=== PATIENT | male | born 1940 | race African-American/Black ===

== ENCOUNTER 2021-02-08 13:20 | Inpatient (IN) | payer MEDICARE, OTHER, SELFPAY ==
[2021-02-08] VITALS (15 sets, daily range): BP systolic 144–193; BP diastolic 90–138; PULSE 61–115; RESP 13–26; TEMP 36.8; O2SAT 90–100; BMI 23.7
--- NOTE | ~2021-02-08 | XR_ITS ---
EXAMINATION: XR CHEST CLINICAL INFORMATION: Shortness of breath COMPARISON: 06/18/2020 TECHNIQUE: Frontal view of the chest was obtained. FINDINGS: Left chest wall pacer remains in place. The lungs are well expanded. Patchy bilateral nodular opacities are seen throughout both lungs. No significant pleural effusion. No pneumothorax. The cardiomediastinal silhouette is unchanged. XR/XR chest 1V IMPRESSION: Bilateral nodular patchy opacities throughout the lungs could be infectious or inflammatory in nature. Follow-up to resolution to exclude underlying nodules.
--- NOTE | ~2021-02-08 | CT_ITS ---
EXAMINATION: CT CHEST WITHOUT CONTRAST CLINICAL INFORMATION: Shortness of breath COMPARISON: Chest radiograph earlier today and chest CT 06/18/2020 TECHNIQUE: Multidetector volumetric CT imaging of the chest was done. Axial MIP volume rendering provided. Sagittal and coronal reformatted images were obtained. This CT examination was performed using dose optimization techniques as appropriate, variously including the following: *Automated exposure control *Adjustment of mA and/or kV according to patient size (this includes techniques or standardized protocols for targeted exams where dose is matched to indication/reason for exam; i.e. extremities or head) *Use of iterative reconstruction technique DLP: 250 mGy-cm FINDINGS: LUNGS: There are nodular groundglass type infiltrates in the right upper lobe and left upper lobe. Some minimal nonspecific groundglass changes are present in the lower lobes. MEDIASTINUM: The heart is mildly enlarged. Coronary calcifications are present. Mildly prominent precarinal lymph node present measuring 1.8 x 1.4 cm not significantly changed when compared to the 06/18/2020 study. A 3-lead left chest wall pacemaker is present. PLEURA: Small new bilateral pleural effusions are present. AXILLA: No lymphadenopathy. UPPER ABDOMEN: Calcifications are present at the renal artery ostia. No abdominal masses or adenopathy is seen. No ascites is present. OSSEOUS STRUCTURES: Degenerative changes present in the spine CT/CT chest wo con IMPRESSION: Cardiomegaly, bilateral pleural effusions and some generalized groundglass change all of which may be indicative of CHF with interstitial edema Bilateral upper lobe pulmonary infiltrates which could be infectious or inflammatory and possibly even atypical edema. Neoplasm is felt to be less likely. As stated in the chest radiograph report follow-up is recommended to assure clearing.
--- NOTE | 2021-02-08 13:25 | ECG_ITS ---
Test Reason : cp Blood Pressure : / mmHG Vent. Rate : 124 BPM Atrial Rate : 124 BPM P-R Int : 118 ms QRS Dur : 134 ms QT Int : 408 ms P-R-T Axes : 049 -89 074 degrees QTc Int : 586 ms Sinus tachycardia Left axis deviation Non-specific intra-ventricular conduction block Abnormal ECG When compared with ECG of 18-JUN-2020 10:10, Vent. rate has increased BY 62 BPM Referred By: Generic ED Physician Electronically Signed By:IAN MILLARD
[2021-02-08 13:57] LABS: Hematocrit 42.3 % (42-52); Imm Gran Abs Auto 0.01 X10*3/uL (0.00-0.03); Imm Gran Pct Auto 0.1 % (0.0-0.4); Monocytes Absolute Auto 0.5 X10*3/uL (0.1-1.2)
--- NOTE | 2021-02-08 13:57 | ED.SOB ---
HPI - SOB/Dyspnea General Chief Complaint: Dyspnea Stated Complaint: chest burning.SOB Time Seen by Provider: 02/08/21 13:57 Source: family Mode of arrival: EMS Limitations: no limitations History of Present Illness HPI Narrative: Pleasant 80-year-old male with history of atrial fibrillation, CHF and COPD who is a former smoker 40 years ago with a 20+ year pack a day smoker as well as hypertension who presents today with complaint of 1 day of burning like discomfort in the substernal region and progressively have gotten more short of breath since last night. States pain feels burning like in the substernal region. And more sore breath with exertion. No cough or URI symptoms recently. No fever. No recent travel or sick contacts. MD elicited complaint: shortness of breath Context: recent illness Severity: severe Exacerbating factors: exertion Relieving factors: nothing Known history of: COPD and congestive heart failure Associated symptoms: denies other symptoms Treatment prior to arrival: none Related Data Home oxygen amount: none Home Medications Medication Instructions Recorded Confirmed carvedilol 6.25 mg tablet 6.25 mg PO BID 01/09/21 02/08/21 lisinopril 5 mg tablet 5 mg PO DAILY 01/09/21 02/08/21 tamsulosin 0.4 mg capsule 0.4 mg PO DAILY 01/09/21 02/08/21 warfarin 5 mg tablet See Rx Instructions .ROUTE .COMPLEX 01/09/21 02/08/21 Previous Rx's Medication Instructions Recorded allopurinol 300 mg tablet 300 mg PO DAILY #30 tab 12/19/20 atorvastatin 40 mg tablet 40 mg PO DAILY #90 tab 12/19/20 hydralazine 25 mg tablet 25 mg PO TID #90 tab 12/19/20 isosorbide dinitrate 10 mg tablet 10 mg PO TID 90 Days #270 tab 12/25/20 torsemide 20 mg tablet 20 mg PO BID #180 tab 01/22/21 Allergies Allergy/AdvReac Type Severity Reaction Status Date / Time No Known Allergies Allergy Unknown Verified 01/09/21 11:12 [No Known Allergies*] Review of Systems Review of Systems: Constitutional: No Weight loss, No Fever, No Chills, No Night Sweats, No Fatigue, No Malaise ENT/Mouth: No Hearing loss, No Ear Pain, No Nasal Congestion, No Sinus Pain, No Hoarseness, No sore throat, No Rhinorrhea, No Swallowing Difficulty Eyes: No Eye Pain, No Swelling, No Redness, No Foreign Body, No Discharge, No Vision Changes Cardiovascular: + Chest Pain, No SOB, No Edema, No Palpitations Respiratory: No Cough, No Sputum, No Wheezing, No Smoke Exposure, No Dyspnea Gastrointestinal: No Nausea, No Vomiting, No Diarrhea, No Constipation, No abdominal Pain, No Hematochezia, No Melena Genitourinary: No Dysuria, No Urinary Frequency, No Hematuria, No Urinary Incontinence, No Urgency, No Flank Pain, No Urinary Flow Changes, No Hesitancy Musculoskeletal: No joint pain, No Myalgias, No Joint Swelling Skin: No Skin Lesions, No rash Neuro: No Weakness, No Numbness, No Paresthesias, No Loss of Consciousness, No Dizziness, No Headache Psych: No Social Issues Heme/Lymph: No Bruising, No Bleeding,No Lymphadenopathy Endocrine: No Polyuria, No Polydipsia, No Temperature Intolerance Yes all other systems are reviewed and are negative [facility] Past Medical History [facility] Narrative: Atrial fibrillation Cardiac pacer implant Hypertension BPH Asthma/COPD Congestive heart failure Medical History Atrial fibrillation Surgical History (Updated 01/09/21 @ 11:17 by An Stokes) History of rotator cuff surgery History of surgery on right wrist Family History Family History (Updated 01/09/21 @ 11:17 by An Stokes) Mother No problems noted. Father No problems noted. Social History Social History (Updated 01/09/21 @ 11:18 by An Stokes) Alcohol intake: never Smoking Status: Former smoker Use of substances other than those prescribed or required for medical reasons: No Advance Directives: No Advance Directives Information Provided: Yes Physical Exam Vital Signs: Vital Signs: Last Vital Signs Temp 98.3 F 02/08/21 13:38 Pulse 72 02/08/21 20:56 Resp 16 02/08/21 20:56 BP 182/109 H 02/08/21 20:56 Pulse Ox 96 02/08/21 20:56 Body Mass Index 23.7 Reviewed Const: General: acute distress moderate and respiratory; No intoxicated appearing Nutritional Appearance: average body habitus Orientation/consciousness: patient oriented x3 HENMT: Head: Yes normal to inspection Ears: hearing grossly normal bilaterally Eyes: General: appearance normal, both eyes and all related structures Visual Greene: normal visual greene by confrontation Neck: Neck: Yes normal visual inspection, No positive Brudzinski's sign, No positive Kernig's sign and No tender Thyroid: Thyroid normal Chest: Chest palpation & inspection: normal inspection of the chest Resp: Effort & Inspection: normal respiratory effort Auscultation: clear to auscultation bilaterally Cardio: Jugular venous distension: no JVD Rhythm: regular rhythm Heart sounds: S1 normal heart sound present and S2 normal heart sound present GI: Inspection: Yes normal to inspection Palpation (GI): Soft to palpation Percussion: Yes normal to percussion Auscultation: normal bowel sounds : General: Yes no CVA tenderness Back/Spine/Pelvis: Back: no CVA tenderness Skin: General skin exam: no rashes or lesions noted Neuro: General: patient oriented x3 Extrem: General: Yes normal to inspection Course Reevaluation(s) Reevaluation #1: AFib with RVR appears and respiratory distress underlying HF diminished lung sounds bibasal a question flash pulmonary edema blood pressure elevated 190s / 1 teens. Will give dose of Lasix, nitro paste to chest and rescue CPAP. Workup including chest x-ray EKG showed. Reevaluation #2: Appears and feels much better after being on the CPAP for 1 hour. BNP elevated but not significant from previous. After 40 mg of IV Lasix he was able to put out 1100 cc. Troponin slightly bumped EKG nondiagnostic repeat without delta. Case discussed with hospitalist would like to monitor for 1 hour to see make sure go back into flash pulmonary edema and will admit to service. Consultations Consultation #1: Hospitalist Dr. Ng Consultation #2: Hospitalist Dr. Mansfield MDM - SOB/Dyspnea Medical Records Attestation: I reviewed the patient's medical records. Lab Data Attestation: I reviewed the patient's lab results. Result diagrams: 02/08/21 13:50 02/08/21 13:50 Labs: Lab Results 02/08/21 02/08/21 02/08/21 Range/Units 13:50 13:50 13:50 WBC 6.9 (4.8-10.8) X10*3/uL RBC 5.20 (4.60-5.80) X10*6/uL Hgb 12.9 L (14.0-18.0) g/dl Hct 42.3 (42-52) % MCV 81.3 (80-98) fL MCH 24.8 L (27.0-33.0) pg MCHC 30.5 L (31.0-36.0) g/dl RDW 17.8 H (11.0-16.0) % Plt Count 140 L (160-400) X10*3/uL MPV Not Reportable Immature Gran % (Auto) 0.1 (0.0-0.4) % Neut % (Auto) 76.6 H (45-73) % Lymph % (Auto) 12.0 L (20-40) % [place]wey % (Auto) 6.8 (2-11) % Eos % (Auto) 3.9 (0-4) % Baso % (Auto) 0.6 (0-2) % Lymph # (Auto) 0.8 L (1.2-4.9) X10*3/uL [place]wey # (Auto) 0.5 (0.1-1.2) X10*3/uL Eos # (Auto) 0.3 (0.0-0.4) X10*3/uL Baso # (Auto) 0.0 (0.0-0.2) X10*3/uL Abs Immat Gran (auto) 0.01 (0.00-0.03) X10*3/uL Absolute Neuts (auto) 5.3 (2.0-8.3) X10*3/uL Absolute Nucleated RBC 0.000 (0.0-0.012) X10*3/uL Nucleated RBC % (auto) 0.0 (0.0-0.2) /100WBC PT (10.8-13.0) SEC INR (0.9-1.1) APTT (24.1-38.0) SEC Hold Blue Top SEE NOTE Sodium 144 (135-145) mmol/L Potassium 3.8 (3.3-5.1) mmol/L Chloride 111 H (96-108) mmol/L Carbon Dioxide 23 (22-29) mmol/L Anion Gap 14 (12-20) BUN 30 H (9-16) mg/dL Creatinine 1.57 H (0.5-1.4) mg/dL Estim Creat Clear Calc 41.1 Estimated GFR 43 Random Glucose 111 (60-115) mg/dL Calcium 9.1 (8.4-10.2) mg/dL Total Bilirubin 1.9 H (0.0-1.0) mg/dL Direct Bilirubin 0.7 H (0.0-0.5) mg/dL AST 23 (5-37) U/L ALT 16 (0-40) U/L Alkaline Phosphatase 83 (39-117) U/L Lactate Dehydrogenase 246 (118-273) U/L Troponin I High Sens (<3.5-35.0) ng/L C-Reactive Protein 0.48 (< or = 0.50) mg/dL B-Natriuretic Peptide (<100) pg/mL Total Protein 6.9 (6.5-8.0) g/dL Albumin 4.1 (3.5-5.0) g/dL Procalcitonin ng/mL Urine Color Urine Appearance Urine pH (5.0-8.0) Ur Specific [place] (1.005-1.025) Urine Protein (NEG-TRACE) MG/DL Urine Glucose (UA) (NEG) MG/DL Urine Ketones (NEG) MG/DL Urine Blood (NEG) Urine Nitrite (NEG) Ur Leukocyte Esterase (NEG) Urine RBC (0) /HPF Urine WBC (0-4) /HPF Ur Squamous Epith Cells /LPF Urine Bacteria /LPF Urine Mucus /LPF Coronavirus (PCR) (Negative) Influenza Type A (PCR) (Negative) Influenza Type B (PCR) (Negative) RSV RNA Qual (PCR) (Negative) 02/08/21 02/08/21 02/08/21 Range/Units 13:50 13:50 14:22 WBC (4.8-10.8) X10*3/uL RBC (4.60-5.80) X10*6/uL Hgb (14.0-18.0) g/dl Hct (42-52) % MCV (80-98) fL MCH (27.0-33.0) pg MCHC (31.0-36.0) g/dl RDW (11.0-16.0) % Plt Count (160-400) X10*3/uL MPV Immature Gran % (Auto) (0.0-0.4) % Neut % (Auto) (45-73) % Lymph % (Auto) (20-40) % [place]wey % (Auto) (2-11) % Eos % (Auto) (0-4) % Baso % (Auto) (0-2) % Lymph # (Auto) (1.2-4.9) X10*3/uL [place] # (Auto) (0.1-1.2) X10*3/uL Eos # (Auto) (0.0-0.4) X10*3/uL Baso # (Auto) (0.0-0.2) X10*3/uL Abs Immat Gran (auto) (0.00-0.03) X10*3/uL Absolute Neuts (auto) (2.0-8.3) X10*3/uL Absolute Nucleated RBC (0.0-0.012) X10*3/uL Nucleated RBC % (auto) (0.0-0.2) /100WBC PT (10.8-13.0) SEC INR (0.9-1.1) APTT (24.1-38.0) SEC Hold Blue Top Sodium (135-145) mmol/L Potassium (3.3-5.1) mmol/L Chloride (96-108) mmol/L Carbon Dioxide (22-29) mmol/L Anion Gap (12-20) BUN (9-16) mg/dL Creatinine (0.5-1.4) mg/dL Estim Creat Clear Calc Estimated GFR Random Glucose (60-115) mg/dL Calcium (8.4-10.2) mg/dL Total Bilirubin (0.0-1.0) mg/dL Direct Bilirubin (0.0-0.5) mg/dL AST (5-37) U/L ALT (0-40) U/L Alkaline Phosphatase (39-117) U/L Lactate Dehydrogenase (118-273) U/L Troponin I High Sens 113.4 H (<3.5-35.0) ng/L C-Reactive Protein (< or = 0.50) mg/dL B-Natriuretic Peptide 2026 H (<100) pg/mL Total Protein (6.5-8.0) g/dL Albumin (3.5-5.0) g/dL Procalcitonin 0.03 ng/mL Urine Color Urine Appearance Urine pH (5.0-8.0) Ur Specific [place] (1.005-1.025) Urine Protein (NEG-TRACE) MG/DL Urine Glucose (UA) (NEG) MG/DL Urine Ketones (NEG) MG/DL Urine Blood (NEG) Urine Nitrite (NEG) Ur Leukocyte Esterase (NEG) Urine RBC (0) /HPF Urine WBC (0-4) /HPF Ur Squamous Epith Cells /LPF Urine Bacteria /LPF Urine Mucus /LPF Coronavirus (PCR) (Negative) Influenza Type A (PCR) (Negative) Influenza Type B (PCR) (Negative) RSV RNA Qual (PCR) (Negative) 02/08/21 02/08/21 02/08/21 Range/Units 14:22 14:35 14:54 WBC (4.8-10.8) X10*3/uL RBC (4.60-5.80) X10*6/uL Hgb (14.0-18.0) g/dl Hct (42-52) % MCV (80-98) fL MCH (27.0-33.0) pg MCHC (31.0-36.0) g/dl RDW (11.0-16.0) % Plt Count (160-400) X10*3/uL MPV Immature Gran % (Auto) (0.0-0.4) % Neut % (Auto) (45-73) % Lymph % (Auto) (20-40) % [place] % (Auto) (2-11) % Eos % (Auto) (0-4) % Baso % (Auto) (0-2) % Lymph # (Auto) (1.2-4.9) X10*3/uL [place] # (Auto) (0.1-1.2) X10*3/uL Eos # (Auto) (0.0-0.4) X10*3/uL Baso # (Auto) (0.0-0.2) X10*3/uL Abs Immat Gran (auto) (0.00-0.03) X10*3/uL Absolute Neuts (auto) (2.0-8.3) X10*3/uL Absolute Nucleated RBC (0.0-0.012) X10*3/uL Nucleated RBC % (auto) (0.0-0.2) /100WBC PT 13.6 H (10.8-13.0) SEC INR 1.1 (0.9-1.1) APTT 33.1 (24.1-38.0) SEC Hold Blue Top Sodium (135-145) mmol/L Potassium (3.3-5.1) mmol/L Chloride (96-108) mmol/L Carbon Dioxide (22-29) mmol/L Anion Gap (12-20) BUN (9-16) mg/dL Creatinine (0.5-1.4) mg/dL Estim Creat Clear Calc Estimated GFR Random Glucose (60-115) mg/dL Calcium (8.4-10.2) mg/dL Total Bilirubin (0.0-1.0) mg/dL Direct Bilirubin (0.0-0.5) mg/dL AST (5-37) U/L ALT (0-40) U/L Alkaline Phosphatase (39-117) U/L Lactate Dehydrogenase (118-273) U/L Troponin I High Sens (<3.5-35.0) ng/L C-Reactive Protein (< or = 0.50) mg/dL B-Natriuretic Peptide (<100) pg/mL Total Protein (6.5-8.0) g/dL Albumin (3.5-5.0) g/dL Procalcitonin ng/mL Urine Color YELLOW Urine Appearance CLEAR Urine pH 6.0 (5.0-8.0) Ur Specific [place] 1.025 (1.005-1.025) Urine Protein 2+ H (NEG-TRACE) MG/DL Urine Glucose (UA) NEG (NEG) MG/DL Urine Ketones NEG (NEG) MG/DL Urine Blood 1+ H (NEG) Urine Nitrite NEG (NEG) Ur Leukocyte Esterase NEG (NEG) Urine RBC 5-9 H (0) /HPF Urine WBC 0 (0-4) /HPF Ur Squamous Epith Cells TRACE /LPF Urine Bacteria NONE /LPF Urine Mucus TRACE /LPF Coronavirus (PCR) NEGATIVE (Negative) Influenza Type A (PCR) NEGATIVE (Negative) Influenza Type B (PCR) NEGATIVE (Negative) RSV RNA Qual (PCR) NEGATIVE (Negative) 04/10/21 Range/Units 17:08 WBC (4.8-10.8) X10*3/uL RBC (4.60-5.80) X10*6/uL Hgb (14.0-18.0) g/dl Hct (42-52) % MCV (80-98) fL MCH (27.0-33.0) pg MCHC (31.0-36.0) g/dl RDW (11.0-16.0) % Plt Count (160-400) X10*3/uL MPV Immature Gran % (Auto) (0.0-0.4) % Neut % (Auto) (45-73) % Lymph % (Auto) (20-40) % [place] % (Auto) (2-11) % Eos % (Auto) (0-4) % Baso % (Auto) (0-2) % Lymph # (Auto) (1.2-4.9) X10*3/uL [place] # (Auto) (0.1-1.2) X10*3/uL Eos # (Auto) (0.0-0.4) X10*3/uL Baso # (Auto) (0.0-0.2) X10*3/uL Abs Immat Gran (auto) (0.00-0.03) X10*3/uL Absolute Neuts (auto) (2.0-8.3) X10*3/uL Absolute Nucleated RBC (0.0-0.012) X10*3/uL Nucleated RBC % (auto) (0.0-0.2) /100WBC PT (10.8-13.0) SEC INR (0.9-1.1) APTT (24.1-38.0) SEC Hold Blue Top Sodium (135-145) mmol/L Potassium (3.3-5.1) mmol/L Chloride (96-108) mmol/L Carbon Dioxide (22-29) mmol/L Anion Gap (12-20) BUN (9-16) mg/dL Creatinine (0.5-1.4) mg/dL Estim Creat Clear Calc Estimated GFR Random Glucose (60-115) mg/dL Calcium (8.4-10.2) mg/dL Total Bilirubin (0.0-1.0) mg/dL Direct Bilirubin (0.0-0.5) mg/dL AST (5-37) U/L ALT (0-40) U/L Alkaline Phosphatase (39-117) U/L Lactate Dehydrogenase (118-273) U/L Troponin I High Sens 140.0 H (<3.5-35.0) ng/L C-Reactive Protein (< or = 0.50) mg/dL B-Natriuretic Peptide (<100) pg/mL Total Protein (6.5-8.0) g/dL Albumin (3.5-5.0) g/dL Procalcitonin ng/mL Urine Color Urine Appearance Urine pH (5.0-8.0) Ur Specific [place] (1.005-1.025) Urine Protein (NEG-TRACE) MG/DL Urine Glucose (UA) (NEG) MG/DL Urine Ketones (NEG) MG/DL Urine Blood (NEG) Urine Nitrite (NEG) Ur Leukocyte Esterase (NEG) Urine RBC (0) /HPF Urine WBC (0-4) /HPF Ur Squamous Epith Cells /LPF Urine Bacteria /LPF Urine Mucus /LPF Coronavirus (PCR) (Negative) Influenza Type A (PCR) (Negative) Influenza Type B (PCR) (Negative) RSV RNA Qual (PCR) (Negative) Imaging Data Chest CT: Radiologist's impression: [address] [id number] Scan ReportSigned Patient: Dimitri Ordaz TMR#: [id number]: 1940Acct:[id number]/Sex: 80 / MADM Date: 02/08/21Loc: Ron Dr: Ordering Physician: Jayden Padilla NP Date of Service: 02/08/21 Procedure(s): CT chest wo con Accession Number(s): [id number] cc: Jayden Padilla MANAGER LOCATION~ EXAMINATION: CT CHEST WITHOUT CONTRAST CLINICAL INFORMATION: Shortness of breath COMPARISON: Chest radiograph earlier today and chest CT 06/18/2020 TECHNIQUE: Multidetector volumetric CT imaging of the chest was done. Axial MIP volume rendering provided. Sagittal and coronal reformatted images were obtained. This CT examination was performed using dose optimization techniques as appropriate, variously including the following: *Automated exposure control *Adjustment of mA and/or kV according to patient size (this includes techniques or standardized protocols for targeted exams where dose is matched to indication/reason for exam; i.e. extremities or head) *Use of iterative reconstruction technique DLP: 250 mGy-cm FINDINGS: LUNGS: There are nodular groundglass type infiltrates in the right upper lobe and left upper lobe. Some minimal nonspecific groundglass changes are present in the lower lobes. MEDIASTINUM: The heart is mildly enlarged. Coronary calcifications are present. Mildly prominent precarinal lymph node present measuring 1.8 x 1.4 cm not significantly changed when compared to the 06/18/2020 study. A 3-lead left chest wall pacemaker is present. PLEURA: Small new bilateral pleural effusions are present. AXILLA: No lymphadenopathy. UPPER ABDOMEN: Calcifications are present at the renal artery ostia. No abdominal masses or adenopathy is seen. No ascites is present. OSSEOUS STRUCTURES: Degenerative changes present in the spine CT/CT chest wo con IMPRESSION: Cardiomegaly, bilateral pleural effusions and some generalized groundglass change all of which may be indicative of CHF with interstitial edema Bilateral upper lobe pulmonary infiltrates which could be infectious or inflammatory and possibly even atypical edema. Neoplasm is felt to be less likely. As stated in the chest radiograph report follow-up is recommended to assure clearing. Dictated By:ANAND KENDALL MDSigned By:<Electronically signed by ANAND KENDALL MD in [place]>02/08/212017 DD/ 1907TD/TT: Web Content Producer: CHACORTA Chest x-ray: Radiologist's impression: [address] [id number] ReportSigned Patient: Dimitri Ordaz TMR#: [id number]: 1940Acct:[id number]/Sex: 80 / MADM Date: 02/08/21Loc: Ron Dr: Ordering Physician: Jayden Padilla NP Date of Service: 02/08/21 Procedure(s): XR chest 1V Accession Number(s): [id number] cc: aJyden Padilla NP~ EXAMINATION: XR CHEST CLINICAL INFORMATION: Shortness of breath COMPARISON: 06/18/2020 TECHNIQUE: Frontal view of the chest was obtained. FINDINGS: Left chest wall pacer remains in place. The lungs are well expanded. Patchy bilateral nodular opacities are seen throughout both lungs. No significant pleural effusion. No pneumothorax. The cardiomediastinal silhouette is unchanged. XR/XR chest 1V IMPRESSION: Bilateral nodular patchy opacities throughout the lungs could be infectious or inflammatory in nature. Follow-up to resolution to exclude underlying nodules. Dictated By:Joshua Shin MDSigned By:<Electronically signed by Joshua Shin MD in [place]>02/08/21 1504 DD/ 1401TD/TT: Web Content Producer: SOLOMON ECG Data Interpretation: AFib with RVR, frequent PVC Rate 20 TTE MT interval 118 QT 408/QTC 586 Critical Care Time Critical Care Time Critical Care Time: Yes Total Critical Care Time: 65 Attestation: Flash pulmonary edema requiring rapid intervention including medication management, CPAP and multiple re-evaluations at bedside. Discharge Plan Discharge Clinical Impression: Atrial fibrillation, Flash pulmonary edema Patient Disposition: Admitted As Inpatient
[2021-02-08 13:59] LABS: Basophils Percent Auto 0.6 % (0-2); Eosinophils Absolute Auto 0.3 X10*3/uL (0.0-0.4); Eosinophils Percent Auto 3.9 % (0-4); Hemoglobin 12.9 g/dl (14.0-18.0); Lymphocytes Absolute Auto 0.8 X10*3/uL (1.2-4.9); Mean Corpuscular HGB Conc 30.5 g/dl (31.0-36.0); Mean Corpuscular Hemoglobin 24.8 pg (27.0-33.0); Mean Corpuscular Volume 81.3 fL (80-98); Monocytes Percent Auto 6.8 % (2-11); Neutrophils Absolute Auto 5.3 X10*3/uL (2.0-8.3); Neutrophils Percent Auto 76.6 % (45-73); Platelet Count 140 X10*3/uL (160-400); Red Cell Distribution Width 17.8 % (11.0-16.0); White Blood Count 6.9 X10*3/uL (4.8-10.8)
[2021-02-08 14:00] LABS: MANUAL DIFF FLAG NO
[2021-02-08 14:16] LABS: Anion Gap 14 (12-20); Blood Urea Nitrogen 30 mg/dL (9-16); Calcium 9.1 mg/dL (8.4-10.2); Carbon Dioxide 23 mmol/L (22-29); Chloride 111 mmol/L (96-108); Creatinine Clr Calc Pharmacy 41.1; Estimated Glomerular Filt Rate 43; Glucose Random 111 mg/dL (60-115); Potassium 3.8 mmol/L (3.3-5.1); Sodium 144 mmol/L (135-145)
[2021-02-08 14:25] LABS: Troponin-I High Sensitivity 113.4 ng/L (<3.5-35.0)
[2021-02-08 14:33] LABS: Alanine Aminotransferase 16 U/L (0-40); Albumin Level 4.1 g/dL (3.5-5.0); Alkaline Phosphatase 83 U/L (39-117); Aspartate Amino Transferase 23 U/L (5-37); Bilirubin Direct 0.7 mg/dL (0.0-0.5); Bilirubin Total 1.9 mg/dL (0.0-1.0); C Reactive Protein 0.48 mg/dL (< or = 0.50); Lactate Dehydrogenase 246 U/L (118-273); Total Protein 6.9 g/dL (6.5-8.0)
[2021-02-08 14:39] LABS: INTERNATIONAL NORM RATIO 1.1 (0.9-1.1); Prothrombin Time 13.6 SEC (10.8-13.0)
[2021-02-08 14:42] LABS: Partial Thromboplastin Time 33.1 SEC (24.1-38.0)
[2021-02-08 14:46] LABS: Glucose Urine UA NEG (NEG); Leukocyte Esterase Urine NEG (NEG); Nitrite Urine NEG (NEG); Specific Gravity - Urine 1.025 (1.005-1.025); Urine Blood 1+ (NEG); Urine Ketones NEG (NEG); Urine Protein 2+ MG/DL (NEG-TRACE)
[2021-02-08 14:47] LABS: Appearance Urine CLEAR; Color Urine YELLOW
[2021-02-08 14:55] LABS: B Type Natriuretic Peptide 2026 pg/mL (<100)
[2021-02-08 15:08] LABS: Procalcitonin 0.03 ng/mL
[2021-02-08 15:10] LABS: Mucus Urine TRACE /LPF; Squamous Epithelial Cell Urine TRACE /LPF; WBC Urine 0 /HPF (0-4)
[2021-02-08] MEDS: Furosemide 40 MG/4 ML VIAL IVPUSH (15:10)
--- NOTE | 2021-02-08 15:13 | PC.NURSE ---
pt alert and oriented, skin appropriate for ethnicity, pt reports having sob and dry cough with midsternal chest burning that started on the overnight. ls slightly diminished on the bases/course and now starting with expiratory wheezing as well, work of breathing increasing respirations range from 20-26, sating 99% on 2l on the monitor hr rate will vary from 130-80 s with frequent pvc's, mp elevated at 185/116
[2021-02-08] MEDS: Nitroglycerin 2 % Oint 1 GM Packet 1 INCH TRANSDERMA (15:32)
--- NOTE | 2021-02-08 15:35 | PC.NURSE ---
nitro patch 1 inch appleid to the right side of chest, pt has pacemaker on the left side rt at bedside starting cpap- 12 of oxygen
[2021-02-08 15:43] LABS: Influenza A PCR NEGATIVE (Negative); Influenza B PCR NEGATIVE (Negative); Resp Syncy Virus RNA Qual PCR NEGATIVE (Negative); SARS COV2 PCR INHOUSE NEGATIVE (Negative)
--- NOTE | 2021-02-08 16:31 | PC.NURSE ---
Pt's blood pressure has decreased, work of breathing improved, urine out 600ml via urinal. Daughter currently at bedside.
--- NOTE | 2021-02-08 17:41 | PC.NURSE ---
pt taken off the cpap, back on the 2l via nasal cannual, sating at 99%, work of breathing increase with any slight of exertion, pt voided 500ml od yellow urine, hr at this time 75.
[2021-02-08] MEDS: hydrALAZINE HCl 20 MG/ML VIAL 5 MG IVPUSH (18:02)
--- NOTE | 2021-02-08 18:58 | PC.NURSE ---
Pt back on CPAP, work of breathing increased, satting at 99-100%, HR 65, B/P slightly improving, Voided 500ml via urinal.
--- NOTE | 2021-02-08 19:29 | PC.NURSE ---
ASSUMED CARE, PT RESTING IN STRETCHER ON C-PAP AND UNABLE TO WEAN OFF. PT ON MONITOR HR 68, PT ON C-PAP AT 12 AND 35% O2. PT CALM AND COOPERATIVE. PT UNDRESSED. VS OBTAINED. PT AWAITING FOR PENDING ADMISSION TO ICU. PT IN NAD WITH RESPIRATIONS 21. SKIN W/D. PT DENIES ANY PAIN/COMPLAINTS AT THIS TIME. WILL CONTINUE TO MONITOR PT.
[2021-02-08] MEDS: Furosemide 20 MG/2 ML VIAL IVPUSH (19:45)
[2021-02-08] MEDS: methylPREDNISolone Sod Succ 125 MG/2 ML VIAL IVPUSH (19:45)
--- NOTE | 2021-02-08 19:50 | PC.NURSE ---
PT SWITCHED TO 2LNC PER PA FOR CT. PT RETURNS FROM CT IN STRETCHER AND REMAINS ON 3LNC WITH PO 99% PA AWARE.
--- NOTE | 2021-02-08 19:55 | PC.NURSE ---
PT MEDICATED PER EMAR. RESPIRATORY IN ROOM FOR BREATHING TX.
--- NOTE | 2021-02-08 20:00 | PC.NURSE ---
PT ON C-PAP FOR BREATHING TX. PO 96%, HR 73. EMPTIED 400ML OF CLEAR YELLOW URINE IN URINAL. PT DENIES ANY COMPLAINTS AND REMAINS CALM AND COOPERATIVE. PT ON MONITOR. PA AWARE OF BP 178/112
[2021-02-08] MEDS: Albuterol Sulfate (0.083%) 2.5 MG/3 ML VIAL.NEB 7.5 MG INHALE (20:04)
--- NOTE | 2021-02-08 20:55 | PC.NURSE ---
HOSPITALIST IN ROOM FOR EVAL FOR ADMISSION. PT AWAKE AND RESTING COMFORTABLY AND DENIES PAIN/COMPLAINTS AT THIS TIME. WILL CONTINUE TO MONITOR PT. PT REMAINS ON C-PAP WITH PO 94%.
--- NOTE | 2021-02-08 21:39 | PC.NURSE ---
PT RESTING COMFORTABLY IN STRETCHER. PT DENIES COMPLAINTS. NO CHG IN PT'S CONDITION.
[2021-02-08] MEDS: Isosorbide Dinitrate 10 MG TABLET PO (22:20)
[2021-02-08] MEDS: hydrALAZINE HCl 25 MG TABLET PO (22:21)
--- NOTE | 2021-02-08 22:38 | PC.NURSE ---
PT REMOVED FROM C-PAP AND ON 3L NC WITH PO 96% AND PT DENIES ANY COMPLAINTS AT THIS TIME. VS OBTAINED. PT AWAKE AND SPEAKING IN FULL CLEAR SENTENCES. RESPIRATIONS N/L. PT REMAINS ON MONITOR WITH HR 77. AWAITING FOR ROOM ASSIGNMENT.
[2021-02-08] MEDS: Warfarin Sodium 5 MG TABLET PO (23:24)
[2021-02-09] VITALS (16 sets, daily range): BP systolic 110–167; BP diastolic 66–99; PULSE 57–80; RESP 16–21; TEMP 36.1–36.9; O2SAT 93–99
--- NOTE | 2021-02-09 01:20 | PC.NURSE ---
[facility] UNABLE TO TAKE REPORT AT THIS TIME.
--- NOTE | 2021-02-09 01:43 | PC.NURSE ---
REPORT GIVEN TO FLOOR. PT TO FLOOR AT THIS TIME.
--- NOTE | 2021-02-09 05:59 | PM.IMHP ---
History of Present Illness Date of Service: 02/08/21 Chief Complaint: Shortness of breath This is an 80-year-old male with past medical history of AFib, hypertension, CHF, pulmonary hypertension, HLD, emphysema/COPD, BPH and history of prostate cancer status post radiation therapy presents to the hospital with complaints of chest pain as well as shortness of breath. Patient reports that he started having left-sided burning in sensation chest pain that started the day prior to presentation, the pain was constant, nonradiating, 8/10, associated with significant shortness of breath, he has also been having coughing that is dry nonproductive, orthopnea, and lower extremity edema. Patient reports compliance with his water pill as well as low-sodium intake. He also confirms compliance with his blood pressure medications. Patient was placed on BiPAP for short period of time while in the ED. He otherwise denies any headache, change in vision, no abdominal pain nausea or vomiting, no diarrhea constipation, no urinary symptoms. No weakness numbness and tingling Arrival to the ED vitals are significant for a blood pressure of 193/138 heart rate of 115 other vitals within normal range Labs are significant for 6.9, hemoglobin of 12.9, BUN of 30, creatinine of 1.57 which is around his baseline, total bili of 1.9, high sensitivity troponin of 113, increased to 140, BNP of 2026, UA negative, COVID-19 negative, CT of the chest shows cardiomegaly, bilateral pleural effusion, some generalized ground-glass changes of all which may be indicative of CHF with interstitial edema. Past medical history as below on confirm with patient Review of Systems Review of Systems: Yes all other systems are reviewed and are negative [facility] Medical History Atrial fibrillation CKD (chronic kidney disease) Congestive heart failure History of COPD History of prostate cancer Hyperlipidemia Hypertension Pulmonary hypertension Functional capacity: independent ambulation Family History Mother No problems noted. Father No problems noted. Surgical History History of rotator cuff surgery History of surgery on right wrist Social History Household Members: None Housing: House Do you presently have visiting nurse or other home services: No Alcohol intake: never Smoking Status: Former smoker Use of substances other than those prescribed or required for medical reasons: No Have you been hit, kicked, punched, or otherwise hurt by someone within the past year? If so, by whom?: No Do you feel safe in your current relationship?: No Current Relationship Is there a partner from a previous relationship who is making you feel unsafe now?: No Are you made to feel afraid or neglected: No Advance Directives: No Advance Directives Information Provided: Yes Do you have thoughts of harming others: None Do you have a plan to hurt others: No Plan Recently lost weight without trying: Unsure Meds Allergies Allergy/AdvReac Type Severity Reaction Status Date / Time No Known Allergies Allergy Unknown Verified 01/09/21 11:12 [No Known Allergies*] Active Medications: Current Medications Generic Name Dose Route Start Last Admin Trade Name Freq PRN Reason Stop Dose Admin Acetaminophen 650 mg 02/08/21 21:55 Acetaminophen 325 Mg Tablet PO Q6H PRN Pain, Mild (Pain Scale 1-3) Atorvastatin Calcium 40 mg 02/09/21 09:00 Atorvastatin Calcium 40 Mg Tablet PO DAILY [facility] Docusate Sodium 100 mg 02/08/21 21:55 Docusate Sodium 100 Mg Capsule PO DAILY PRN Constipation Furosemide 40 mg 02/09/21 06:00 Furosemide 40 Mg/4 Ml Vial IVPUSH Q12H [facility] Protocol Hydralazine HCl 25 mg 02/08/21 21:55 02/08/21 22:21 Hydralazine Hcl 25 Mg Tablet PO 25 mg TID [facility] Administration Protocol Isosorbide Dinitrate 10 mg 02/08/21 21:55 02/08/21 22:20 Isosorbide Dinitrate 10 Mg Tablet PO 10 mg TID [facility] Administration Protocol Ondansetron HCl 4 mg 02/08/21 21:55 Ondansetron Hcl 4 Mg/2 Ml Vial IVPUSH Q8H PRN Nausea and Vomiting Sodium Chloride 3 ml 02/09/21 00:00 02/09/21 02:36 0.9 % Sodium Chloride Flush 3 Ml Syringe IVFLUSH Not Given QSHIFT [facility] Home Medications Medication Instructions Recorded Confirmed Last Taken Type carvedilol 6.25 mg tablet 6.25 mg PO BID 01/09/21 02/08/21 Unknown History lisinopril 5 mg tablet 5 mg PO DAILY 01/09/21 02/08/21 Unknown History tamsulosin 0.4 mg capsule 0.4 mg PO DAILY 01/09/21 02/08/21 Unknown History warfarin 5 mg tablet See Rx Instructions .ROUTE .COMPLEX 01/09/21 02/08/21 02/07/21 History 10 mg Physical Exam Vital Signs and Narrative: Vital Signs: Last Vital Signs Temp 98.1 F 02/09/21 03:55 Pulse 73 02/09/21 03:55 Resp 18 02/09/21 03:55 BP 118/66 02/09/21 03:55 Pulse Ox 99 02/09/21 03:55 Body Mass Index 23.7 Const: General: cooperative and no acute distress Orientation/consciousness: patient oriented x3 Eyes: General: appearance normal, both eyes and all related structures Pupils: Equal, round and reactive pupils present Resp: Effort & Inspection: normal respiratory effort and able to speak in complete sentences Cardio: Rate: regular rate Rhythm: regular rhythm GI: Palpation (GI): Soft to palpation Auscultation: normal bowel sounds Skin: General skin exam: no rashes or lesions noted Neuro: General: patient oriented x3 Cranial nerves: Yes Equal, round and reactive pupils present Cognition (Neuro): normal cognition Extrem: Other: 2+ pitting edema General: Yes normal to inspection Results Labs CBC and Chem 7: 02/08/21 13:50 02/08/21 13:50 Labs: Laboratory Results - last 24 hr 02/08/21 02/08/21 02/08/21 13:50 13:50 13:50 MCV 81.3 MCH 24.8 L MCHC 30.5 L RDW 17.8 H Plt Count 140 L MPV Not Reportable Immature Gran % (Auto) 0.1 Neut % (Auto) 76.6 H Lymph % (Auto) 12.0 L [place] % (Auto) 6.8 Eos % (Auto) 3.9 Baso % (Auto) 0.6 Lymph # (Auto) 0.8 L [place] # (Auto) 0.5 Eos # (Auto) 0.3 Baso # (Auto) 0.0 Abs Immat Gran (auto) 0.01 Absolute Neuts (auto) 5.3 Absolute Nucleated RBC 0.000 Nucleated RBC % (auto) 0.0 PT INR APTT Hold Blue Top SEE NOTE Anion Gap 14 Estim Creat Clear Calc 41.1 Estimated GFR 43 Random Glucose 111 Calcium 9.1 Total Bilirubin 1.9 H Direct Bilirubin 0.7 H AST 23 ALT 16 Alkaline Phosphatase 83 Lactate Dehydrogenase 246 Troponin I High Sens C-Reactive Protein 0.48 B-Natriuretic Peptide Total Protein 6.9 Albumin 4.1 Procalcitonin Urine Color Urine Appearance Urine pH Ur Specific [place] Urine Protein Urine Glucose (UA) Urine Ketones Urine Blood Urine Nitrite Ur Leukocyte Esterase Urine RBC Urine WBC Ur Squamous Epith Cells Urine Bacteria Urine Mucus Coronavirus (PCR) Influenza Type A (PCR) Influenza Type B (PCR) RSV RNA Qual (PCR) 02/08/21 02/08/21 02/08/21 13:50 13:50 14:22 MCV MCH MCHC RDW Plt Count MPV Immature Gran % (Auto) Neut % (Auto) Lymph % (Auto) [place] % (Auto) Eos % (Auto) Baso % (Auto) Lymph # (Auto) [place] # (Auto) Eos # (Auto) Baso # (Auto) Abs Immat Gran (auto) Absolute Neuts (auto) Absolute Nucleated RBC Nucleated RBC % (auto) PT INR APTT Hold Blue Top Anion Gap Estim Creat Clear Calc Estimated GFR Random Glucose Calcium Total Bilirubin Direct Bilirubin AST ALT Alkaline Phosphatase Lactate Dehydrogenase Troponin I High Sens 113.4 H C-Reactive Protein B-Natriuretic Peptide 2026 H Total Protein Albumin Procalcitonin 0.03 Urine Color Urine Appearance Urine pH Ur Specific [place] Urine Protein Urine Glucose (UA) Urine Ketones Urine Blood Urine Nitrite Ur Leukocyte Esterase Urine RBC Urine WBC Ur Squamous Epith Cells Urine Bacteria Urine Mucus Coronavirus (PCR) Influenza Type A (PCR) Influenza Type B (PCR) RSV RNA Qual (PCR) 02/08/21 02/08/21 02/08/21 14:22 14:35 14:54 MCV MCH MCHC RDW Plt Count MPV Immature Gran % (Auto) Neut % (Auto) Lymph % (Auto) [place] % (Auto) Eos % (Auto) Baso % (Auto) Lymph # (Auto) [place] # (Auto) Eos # (Auto) Baso # (Auto) Abs Immat Gran (auto) Absolute Neuts (auto) Absolute Nucleated RBC Nucleated RBC % (auto) PT 13.6 H INR 1.1 APTT 33.1 Hold Blue Top Anion Gap Estim Creat Clear Calc Estimated GFR Random Glucose Calcium Total Bilirubin Direct Bilirubin AST ALT Alkaline Phosphatase Lactate Dehydrogenase Troponin I High Sens C-Reactive Protein B-Natriuretic Peptide Total Protein Albumin Procalcitonin Urine Color YELLOW Urine Appearance CLEAR Urine pH 6.0 Ur Specific [place] 1.025 Urine Protein 2+ H Urine Glucose (UA) NEG Urine Ketones NEG Urine Blood 1+ H Urine Nitrite NEG Ur Leukocyte Esterase NEG Urine RBC 5-9 H Urine WBC 0 Ur Squamous Epith Cells TRACE Urine Bacteria NONE Urine Mucus TRACE Coronavirus (PCR) NEGATIVE Influenza Type A (PCR) NEGATIVE Influenza Type B (PCR) NEGATIVE RSV RNA Qual (PCR) NEGATIVE 02/08/21 02/08/21 17:08 23:15 MCV MCH MCHC RDW Plt Count MPV Immature Gran % (Auto) Neut % (Auto) Lymph % (Auto) [place] % (Auto) Eos % (Auto) Baso % (Auto) Lymph # (Auto) [place] # (Auto) Eos # (Auto) Baso # (Auto) Abs Immat Gran (auto) Absolute Neuts (auto) Absolute Nucleated RBC Nucleated RBC % (auto) PT INR APTT Hold Blue Top Anion Gap Estim Creat Clear Calc Estimated GFR Random Glucose Calcium Total Bilirubin Direct Bilirubin AST ALT Alkaline Phosphatase Lactate Dehydrogenase Troponin I High Sens 140.0 H 167.0 H C-Reactive Protein B-Natriuretic Peptide Total Protein Albumin Procalcitonin Urine Color Urine Appearance Urine pH Ur Specific [place] Urine Protein Urine Glucose (UA) Urine Ketones Urine Blood Urine Nitrite Ur Leukocyte Esterase Urine RBC Urine WBC Ur Squamous Epith Cells Urine Bacteria Urine Mucus Coronavirus (PCR) Influenza Type A (PCR) Influenza Type B (PCR) RSV RNA Qual (PCR) Imaging Radiologist's Impressions: Impressions Chest X-Ray 02/08/21 14:01 IMPRESSION: Bilateral nodular patchy opacities throughout the lungs could be infectious or inflammatory in nature. Follow-up to resolution to exclude underlying nodules. Chest CT 02/08/21 19:07 IMPRESSION: Cardiomegaly, bilateral pleural effusions and some generalized groundglass change all of which may be indicative of CHF with interstitial edema Bilateral upper lobe pulmonary infiltrates which could be infectious or inflammatory and possibly even atypical edema. Neoplasm is felt to be less likely. As stated in the chest radiograph report follow-up is recommended to assure clearing. Assessment and Plan (1) Flash pulmonary edema: Status: Acute (2) Hypertensive emergency: Status: Acute (3) Atrial fibrillation: Problem details: 40 min reviewing chart evaluating patient and documenting Status: Acute (4) CHF exacerbation: Status: Acute (5) Elevated troponin: Status: Acute (6) CKD (chronic kidney disease): Status: Inactive (7) Subtherapeutic international normalized ratio (INR): Status: Acute This is a 80-year-old male with past medical history of CHF last echocardiogram done in 2014 shows an ejection fraction of 25% presents the hospital with complaints of chest pain as well as shortness of breath. # flash pulmonary edema - secondary to hypertensive emergency - presented with blood pressure in the 190s over 130s - reports compliance with blood pressure medications - blood pressure now more controlled - will resume his home medication - start him on Lasix 40 IV b.i.d. for the CHF exacerbation - monitor respiratory status # hypertensive emergency - unclear etiology -presented with blood pressure in the 190s over 130s -transdermal Riccardo glycerin in the ED with improvements of his BP - will resume his home medications including Imdur, carvedilol, hydralazine, and lisinopril and monitor BP # CHF exacerbation - has elevated BNP, CD evidence of interstitial edema pleural effusion - secondary to hypertensive emergency - last echocardiogram done in 2014 shows an ejection fraction of 25-30% - has elevated troponin but most likely type 2 - will hold torsemide 20 mg which he uses at home - will obtain echocardiogram, place on a low-sodium diet, daily weight, strict I&O - cardiology consulted # elevated troponin - most likely type 2 - no EKG changes - cardiology consulted # CKD - creatinine baseline - continue to monitor with BMP # AFib with subtherapeutic INR - unclear how much warfarin he uses at home - will load him with 5 mg - PT INR daily DVT prophylaxis: Warfarin
[2021-02-09] MEDS: Furosemide 40 MG/4 ML VIAL IVPUSH ×2 (06:40→09:09)
[2021-02-09 07:06] LABS: INTERNATIONAL NORM RATIO 1.2 (0.9-1.1); Prothrombin Time 13.7 SEC (10.8-13.0)
[2021-02-09 07:27] LABS: Anion Gap 17 (12-20); Blood Urea Nitrogen 32 mg/dL (9-16); Calcium 9.1 mg/dL (8.4-10.2); Carbon Dioxide 25 mmol/L (22-29); Chloride 105 mmol/L (96-108); Creatinine Clr Calc Pharmacy 33.6; Estimated Glomerular Filt Rate 34; Glucose Random 194 mg/dL (60-115); Potassium 3.7 mmol/L (3.3-5.1); Sodium 143 mmol/L (135-145)
[2021-02-09 07:30] LABS: Hematocrit 41.9 % (42-52); Hemoglobin 12.7 g/dl (14.0-18.0); Imm Gran Abs Auto 0.01 X10*3/uL (0.00-0.03); Imm Gran Pct Auto 0.2 % (0.0-0.4); Lymphocytes Absolute Auto 0.5 X10*3/uL (1.2-4.9); Lymphocytes Percent Auto 10.3 % (20-40); MANUAL DIFF FLAG SCAN; Mean Corpuscular HGB Conc 30.3 g/dl (31.0-36.0); Mean Corpuscular Hemoglobin 24.6 pg (27.0-33.0); Mean Corpuscular Volume 81.2 fL (80-98); Monocytes Absolute Auto 0.1 X10*3/uL (0.1-1.2); Neutrophils Absolute Auto 3.9 X10*3/uL (2.0-8.3); Neutrophils Percent Auto 87.5 % (45-73); Platelet Count 142 X10*3/uL (160-400); Red Blood Count 5.16 X10*6/uL (4.60-5.80); Red Cell Distribution Width 17.7 % (11.0-16.0); SCAN SMEAR FLAG 1; White Blood Count 4.5 X10*3/uL (4.8-10.8)
[2021-02-09 07:48] LABS: SLIDE REVIEW VERIFIED
[2021-02-09] MEDS: 0.9 % Sodium Chloride Flush 3 ML SYRINGE IVFLUSH ×3 (09:09→22:21)
[2021-02-09] MEDS: Isosorbide Dinitrate 10 MG TABLET PO ×3 (09:09→22:21)
[2021-02-09] MEDS: Atorvastatin Calcium 40 MG TABLET PO (09:10)
[2021-02-09] MEDS: hydrALAZINE HCl 25 MG TABLET PO (09:10)
--- NOTE | 2021-02-09 10:44 | PM.CNCAR ---
History of Present Illness History of Present Illness Date of Service: 02/09/21 Consult reason: congestive heart failure Chief complaint: CHF,ANGELES Narrative: This is a cardiology consultation regarding hypertension congestive heart failure. He sees from [facility]. Has biventricular failure with also restrictive filling patterns. He has pulmonary hypertension and COPD. He states that he was doing okay, but for the last couple of days, he has been having a burning sensation in the chest along with shortness of breath. This led to the hospitalization. Otherwise he states he was doing okay till the symptoms started without any clear exertional shortness of breath or chest pains. When he came to the ER his pressure was quite high and recorded at 193/138 mm Hg. He was thought to have possibly hypertensive emergency/pulmonary edema. Today, he states that he feels okay. Review of Systems Review of Systems: Yes all other systems are reviewed and are negative Cardiovascular: Cardiovascular: Reports as per HPI, Reports no additional cardiovascular complaints, Denies acrocyanosis, Denies cool extremities, Denies painful fingertips, Reports chest pain, Reports chest pain at rest, Denies diaphoresis, Denies syncope, Denies irregular heart rhythm, Denies claudication, Denies leg edema, Denies lightheadedness, Denies palpitations and Reports dyspnea Respiratory: Respiratory: Reports dyspnea Neurologic: Denies syncope Endocrine: Endocrine: Denies palpitations [facility] Past Medical History Medical History (Updated 02/09/21 @ 10:49 by Gordy Méndez MD) Atrial fibrillation Cardiac resynchronization therapy defibrillator ([employer]-D) in place Chronic obstructive pulmonary disease, unspecified CKD (chronic kidney disease) Congestive heart failure History of COPD History of prostate cancer Hyperlipidemia Hypertension Pulmonary hypertension Functional capacity: independent ambulation Family History Family History Mother No problems noted. Father No problems noted. Surgical History Surgical History History of rotator cuff surgery History of surgery on right wrist Social History Social History Household Members: None Housing: House Do you presently have visiting nurse or other home services: No Alcohol intake: never Smoking Status: Former smoker Use of substances other than those prescribed or required for medical reasons: No Have you been hit, kicked, punched, or otherwise hurt by someone within the past year? If so, by whom?: No Do you feel safe in your current relationship?: No Current Relationship Is there a partner from a previous relationship who is making you feel unsafe now?: No Are you made to feel afraid or neglected: No Advance Directives: No Advance Directives Information Provided: Yes Do you have thoughts of harming others: None Do you have a plan to hurt others: No Plan Recently lost weight without trying: Unsure Meds Allergies Allergy/AdvReac Type Severity Reaction Status Date / Time No Known Allergies Allergy Unknown Verified 01/09/21 11:12 [No Known Allergies*] Active Medications: Current Medications Generic Name Dose Route Start Last Admin Trade Name Freq PRN Reason Stop Dose Admin Acetaminophen 650 mg 02/08/21 21:55 Acetaminophen 325 Mg Tablet PO Q6H PRN Pain, Mild (Pain Scale 1-3) Atorvastatin Calcium 40 mg 02/09/21 09:00 02/09/21 09:10 Atorvastatin Calcium 40 Mg Tablet PO 40 mg DAILY RICK Administration Carvedilol 6.25 mg 02/09/21 10:35 Carvedilol 6.25 Mg Tablet PO BID RICK Protocol Docusate Sodium 100 mg 02/08/21 21:55 Docusate Sodium 100 Mg Capsule PO DAILY PRN Constipation Furosemide 40 mg 02/09/21 09:00 02/09/21 09:09 Furosemide 40 Mg/4 Ml Vial IVPUSH 40 mg DAILY RICK Administration Protocol Hydralazine HCl 25 mg 02/08/21 21:55 02/09/21 09:10 Hydralazine Hcl 25 Mg Tablet PO 25 mg TID RICK Administration Protocol Isosorbide Dinitrate 10 mg 02/08/21 21:55 02/09/21 09:09 Isosorbide Dinitrate 10 Mg Tablet PO 10 mg TID RICK Administration Protocol Lisinopril 5 mg 02/09/21 10:35 Lisinopril 5 Mg Tablet PO DAILY RICK Protocol Ondansetron HCl 4 mg 02/08/21 21:55 Ondansetron Hcl 4 Mg/2 Ml Vial IVPUSH Q8H PRN Nausea and Vomiting Sodium Chloride 3 ml 02/09/21 00:00 02/09/21 09:09 0.9 % Sodium Chloride Flush 3 Ml Syringe IVFLUSH 3 ml QSHIFT [facility] Administration Tamsulosin HCl 0.4 mg 02/09/21 10:35 Tamsulosin Hcl 0.4 Mg Capsule PO DAILY [facility] Warfarin Sodium 5 mg 02/09/21 18:00 Warfarin Sodium 5 Mg Tablet PO DAILY@1800 [facility] Home Medications Medication Instructions Recorded Confirmed Last Taken Type warfarin 5 mg tablet See Rx Instructions .ROUTE .COMPLEX 01/09/21 02/08/21 02/07/21 History 10 mg carvedilol 6.25 mg PO BID 02/09/21 02/09/21 Unknown History lisinopril 5 mg PO DAILY 02/09/21 02/09/21 Unknown History tamsulosin 0.4 mg PO DAILY 02/09/21 02/09/21 Unknown History Physical Exam Vital Signs: Vital Signs: Last Vital Signs Temp 97.7 F 02/09/21 08:00 Pulse 63 02/09/21 09:10 Resp 21 H 02/09/21 08:00 BP 160/96 H 02/09/21 09:10 Pulse Ox 97 02/09/21 08:00 Body Mass Index 23.7 Const: General: cooperative, comfortable and no acute distress Orientation/consciousness: patient oriented x3 HENMT: Other: Unremarkable Neck: Neck: Yes normal visual inspection Chest: Chest palpation & inspection: normal inspection of the chest Resp: Auscultation: clear to auscultation bilaterally, no crackles and no wheezes Cardio: Jugular venous distension: no JVD Palpation: normal PMI Heart sounds: S1 normal heart sound present, S2 normal heart sound present, no gallops, no murmurs and no rubs GI: Palpation (GI): Soft to palpation Back/Spine/Pelvis: Other: unremarkable Skin: General skin exam: no rashes or lesions noted Neuro: General: patient oriented x3 Extrem: General: Yes no clubbing, cyanosis or edema Psych: Mental Status: mental status grossly normal Results Labs and Meds Result diagrams: 02/09/21 05:53 02/09/21 05:53 Lab results: Laboratory Results - last 24 hr 02/08/21 02/08/21 02/08/21 13:50 13:50 13:50 WBC 6.9 RBC 5.20 Hgb 12.9 L Hct 42.3 MCV 81.3 MCH 24.8 L MCHC 30.5 L RDW 17.8 H Plt Count 140 L MPV Not Reportable Immature Gran % (Auto) 0.1 Neut % (Auto) 76.6 H Lymph % (Auto) 12.0 L [place] % (Auto) 6.8 Eos % (Auto) 3.9 Baso % (Auto) 0.6 Lymph # (Auto) 0.8 L [place] # (Auto) 0.5 Eos # (Auto) 0.3 Baso # (Auto) 0.0 Abs Immat Gran (auto) 0.01 Absolute Neuts (auto) 5.3 Absolute Nucleated RBC 0.000 Nucleated RBC % (auto) 0.0 Smear Tech's Comments PT INR APTT Hold Blue Top SEE NOTE Sodium 144 Potassium 3.8 Chloride 111 H Carbon Dioxide 23 Anion Gap 14 BUN 30 H Creatinine 1.57 H Estim Creat Clear Calc 41.1 Estimated GFR 43 Random Glucose 111 Calcium 9.1 Total Bilirubin 1.9 H Direct Bilirubin 0.7 H AST 23 ALT 16 Alkaline Phosphatase 83 Lactate Dehydrogenase 246 Troponin I High Sens C-Reactive Protein 0.48 B-Natriuretic Peptide Total Protein 6.9 Albumin 4.1 Procalcitonin Urine Color Urine Appearance Urine pH Ur Specific [place] Urine Protein Urine Glucose (UA) Urine Ketones Urine Blood Urine Nitrite Ur Leukocyte Esterase Urine RBC Urine WBC Ur Squamous Epith Cells Urine Bacteria Urine Mucus Coronavirus (PCR) Influenza Type A (PCR) Influenza Type B (PCR) RSV RNA Qual (PCR) 02/08/21 02/08/21 02/08/21 13:50 13:50 14:22 WBC RBC Hgb Hct MCV MCH MCHC RDW Plt Count MPV Immature Gran % (Auto) Neut % (Auto) Lymph % (Auto) [place] % (Auto) Eos % (Auto) Baso % (Auto) Lymph # (Auto) [place] # (Auto) Eos # (Auto) Baso # (Auto) Abs Immat Gran (auto) Absolute Neuts (auto) Absolute Nucleated RBC Nucleated RBC % (auto) Smear Tech's Comments PT INR APTT Hold Blue Top Sodium Potassium Chloride Carbon Dioxide Anion Gap BUN Creatinine Estim Creat Clear Calc Estimated GFR Random Glucose Calcium Total Bilirubin Direct Bilirubin AST ALT Alkaline Phosphatase Lactate Dehydrogenase Troponin I High Sens 113.4 H C-Reactive Protein B-Natriuretic Peptide 2026 H Total Protein Albumin Procalcitonin 0.03 Urine Color Urine Appearance Urine pH Ur Specific [place] Urine Protein Urine Glucose (UA) Urine Ketones Urine Blood Urine Nitrite Ur Leukocyte Esterase Urine RBC Urine WBC Ur Squamous Epith Cells Urine Bacteria Urine Mucus Coronavirus (PCR) Influenza Type A (PCR) Influenza Type B (PCR) RSV RNA Qual (PCR) 02/08/21 02/08/21 02/08/21 14:22 14:35 14:54 WBC RBC Hgb Hct MCV MCH MCHC RDW Plt Count MPV Immature Gran % (Auto) Neut % (Auto) Lymph % (Auto) [place] % (Auto) Eos % (Auto) Baso % (Auto) Lymph # (Auto) [place] # (Auto) Eos # (Auto) Baso # (Auto) Abs Immat Gran (auto) Absolute Neuts (auto) Absolute Nucleated RBC Nucleated RBC % (auto) Smear Tech's Comments PT 13.6 H INR 1.1 APTT 33.1 Hold Blue Top Sodium Potassium Chloride Carbon Dioxide Anion Gap BUN Creatinine Estim Creat Clear Calc Estimated GFR Random Glucose Calcium Total Bilirubin Direct Bilirubin AST ALT Alkaline Phosphatase Lactate Dehydrogenase Troponin I High Sens C-Reactive Protein B-Natriuretic Peptide Total Protein Albumin Procalcitonin Urine Color YELLOW Urine Appearance CLEAR Urine pH 6.0 Ur Specific [place] 1.025 Urine Protein 2+ H Urine Glucose (UA) NEG Urine Ketones NEG Urine Blood 1+ H Urine Nitrite NEG Ur Leukocyte Esterase NEG Urine RBC 5-9 H Urine WBC 0 Ur Squamous Epith Cells TRACE Urine Bacteria NONE Urine Mucus TRACE Coronavirus (PCR) NEGATIVE Influenza Type A (PCR) NEGATIVE Influenza Type B (PCR) NEGATIVE RSV RNA Qual (PCR) NEGATIVE 02/08/21 02/08/21 02/09/21 17:08 23:15 05:53 WBC 4.5 L RBC 5.16 Hgb 12.7 L Hct 41.9 L MCV 81.2 MCH 24.6 L MCHC 30.3 L RDW 17.7 H Plt Count 142 L MPV Not Reportable Immature Gran % (Auto) 0.2 Neut % (Auto) 87.5 H Lymph % (Auto) 10.3 L [place] % (Auto) 2.0 Eos % (Auto) 0.0 Baso % (Auto) 0.0 Lymph # (Auto) 0.5 L [place] # (Auto) 0.1 Eos # (Auto) 0.0 Baso # (Auto) 0.0 Abs Immat Gran (auto) 0.01 Absolute Neuts (auto) 3.9 Absolute Nucleated RBC 0.000 Nucleated RBC % (auto) 0.0 Smear Tech's Comments VERIFIED PT INR APTT Hold Blue Top Sodium Potassium Chloride Carbon Dioxide Anion Gap BUN Creatinine Estim Creat Clear Calc Estimated GFR Random Glucose Calcium Total Bilirubin Direct Bilirubin AST ALT Alkaline Phosphatase Lactate Dehydrogenase Troponin I High Sens 140.0 H 167.0 H C-Reactive Protein B-Natriuretic Peptide Total Protein Albumin Procalcitonin Urine Color Urine Appearance Urine pH Ur Specific [place] Urine Protein Urine Glucose (UA) Urine Ketones Urine Blood Urine Nitrite Ur Leukocyte Esterase Urine RBC Urine WBC Ur Squamous Epith Cells Urine Bacteria Urine Mucus Coronavirus (PCR) Influenza Type A (PCR) Influenza Type B (PCR) RSV RNA Qual (PCR) 02/09/21 02/09/21 05:53 05:53 WBC RBC Hgb Hct MCV MCH MCHC RDW Plt Count MPV Immature Gran % (Auto) Neut % (Auto) Lymph % (Auto) [place] % (Auto) Eos % (Auto) Baso % (Auto) Lymph # (Auto) [place] # (Auto) Eos # (Auto) Baso # (Auto) Abs Immat Gran (auto) Absolute Neuts (auto) Absolute Nucleated RBC Nucleated RBC % (auto) Smear Tech's Comments PT 13.7 H INR 1.2 H APTT Hold Blue Top Sodium 143 Potassium 3.7 Chloride 105 Carbon Dioxide 25 Anion Gap 17 BUN 32 H Creatinine 1.92 H Estim Creat Clear Calc 33.6 Estimated GFR 34 Random Glucose 194 H D Calcium 9.1 Total Bilirubin Direct Bilirubin AST ALT Alkaline Phosphatase Lactate Dehydrogenase Troponin I High Sens C-Reactive Protein B-Natriuretic Peptide Total Protein Albumin Procalcitonin Urine Color Urine Appearance Urine pH Ur Specific [place] Urine Protein Urine Glucose (UA) Urine Ketones Urine Blood Urine Nitrite Ur Leukocyte Esterase Urine RBC Urine WBC Ur Squamous Epith Cells Urine Bacteria Urine Mucus Coronavirus (PCR) Influenza Type A (PCR) Influenza Type B (PCR) RSV RNA Qual (PCR) ECG Attestation: I personally reviewed and interpreted this ECG as follows: Interpretation: Admission EKG with sinus tachycardia and the left bundle type pattern. Currently, sinus rhythm on telemetry with some PVCs. Imaging Radiologist's impression: Impressions Chest X-Ray 02/08/21 14:01 IMPRESSION: Bilateral nodular patchy opacities throughout the lungs could be infectious or inflammatory in nature. Follow-up to resolution to exclude underlying nodules. Chest CT 02/08/21 19:07 IMPRESSION: Cardiomegaly, bilateral pleural effusions and some generalized groundglass change all of which may be indicative of CHF with interstitial edema Bilateral upper lobe pulmonary infiltrates which could be infectious or inflammatory and possibly even atypical edema. Neoplasm is felt to be less likely. As stated in the chest radiograph report follow-up is recommended to assure clearing. Assessment and Plan (1) Hypertensive emergency: Status: Acute (2) Acute on chronic systolic and diastolic heart failure, NYHA class 3: Status: Acute (3) Paroxysmal atrial fibrillation: Status: Acute (4) Cardiac resynchronization therapy defibrillator ([employer]-D) in place: Status: Acute (5) Chronic obstructive pulmonary disease, unspecified: Qualifiers: COPD type: unspecified COPD Qualified Code(s): J44.9 - Chronic obstructive pulmonary disease, unspecified Status: Acute (6) Pulmonary hypertension: Status: Inactive (7) CKD (chronic kidney disease): Qualifiers: Chronic kidney disease stage: stage 3 (moderate) Chronic kidney disease stage 3 subtype: stage 3b (GFR 30-44) Qualified Code(s): N18.32 - Chronic kidney disease, stage 3b Status: Acute Cardiac catheterization data reviewed from 2018. He had nonobstructive disease with no more than minimal disease. Currently, troponins are elevated to the NSTEMI range but that is most likely from hypertension and probably heart failure. Doubt any acute plaque rupture. Cardiac BNP elevated 1999. His blood pressure is better but still high. May increase the hydralazine dosing as well as the carvedilol dosing. Continue lisinopril. IV diuretics for another day or so. Echocardiogram tomorrow. We will follow.
[2021-02-09] MEDS: carvediloL 6.25 MG TABLET PO (10:56)
[2021-02-09] MEDS: Tamsulosin HCL 0.4 MG CAPSULE PO (10:56)
[2021-02-09] MEDS: lisinopriL 5 MG TABLET PO (10:57)
--- NOTE | 2021-02-09 13:59 | HO.PM.IMPN ---
Subjective Subjective Date of Service: 02/09/21 Interval History: the patient was seen and evaluated this morning Laying in bed, feels comfortable of the oxygen blood pressure still running with bed higher Denies any fever, chills or shortness of breath No reported other overnight events. Systemic review: No fever, chills or weakness No chest pain, palpitation No shortness of breath or coughing No abdominal pain, nausea or vomiting No urinary symptoms No any rash or wounds Physical Exam Vital Signs: Vital Signs: Last Vital Signs Temp 98.4 F 02/09/21 12:00 Pulse 69 02/09/21 12:00 Resp 20 02/09/21 12:00 BP 135/78 02/09/21 12:00 Pulse Ox 96 02/09/21 12:00 Body Mass Index 23.7 Const: Other: Constitutional : Alert, oriented, not in distress Neck : Normal inspection, Supple Cardiovascular : RRR, S1 S2, no lower extremity edema Respiratory : Good bilateral air entry, no crackles, wheezes or rhonchi Gastrointestinal: soft, lax, Normal bowel sounds, Non tender Skin : Warm/Dry, No rash Neurological : Alert & oriented x3, No focal deficit Objective Data Current Medications Generic Name Dose Route Start Last Admin Trade Name Freq PRN Reason Stop Dose Admin Acetaminophen 650 mg 02/08/21 21:55 Acetaminophen 325 Mg Tablet PO Q6H PRN Pain, Mild (Pain Scale 1-3) Atorvastatin Calcium 40 mg 02/09/21 09:00 02/09/21 09:10 Atorvastatin Calcium 40 Mg Tablet PO 40 mg DAILY RICK Administration Carvedilol 6.25 mg 02/09/21 10:35 02/09/21 10:56 Carvedilol 6.25 Mg Tablet PO 6.25 mg BID RICK Administration Protocol Docusate Sodium 100 mg 02/08/21 21:55 Docusate Sodium 100 Mg Capsule PO DAILY PRN Constipation Furosemide 40 mg 02/09/21 09:00 02/09/21 09:09 Furosemide 40 Mg/4 Ml Vial IVPUSH 40 mg DAILY RICK Administration Protocol Hydralazine HCl 25 mg 02/08/21 21:55 02/09/21 09:10 Hydralazine Hcl 25 Mg Tablet PO 25 mg TID RICK Administration Protocol Isosorbide Dinitrate 10 mg 02/08/21 21:55 02/09/21 09:09 Isosorbide Dinitrate 10 Mg Tablet PO 10 mg TID RICK Administration Protocol Lisinopril 5 mg 02/09/21 10:35 02/09/21 10:57 Lisinopril 5 Mg Tablet PO 5 mg DAILY RICK Administration Protocol Ondansetron HCl 4 mg 02/08/21 21:55 Ondansetron Hcl 4 Mg/2 Ml Vial IVPUSH Q8H PRN Nausea and Vomiting Sodium Chloride 3 ml 02/09/21 00:00 02/09/21 09:09 0.9 % Sodium Chloride Flush 3 Ml Syringe IVFLUSH 3 ml QSHIFT RICK Administration Tamsulosin HCl 0.4 mg 02/09/21 10:35 02/09/21 10:56 Tamsulosin Hcl 0.4 Mg Capsule PO 0.4 mg DAILY RICK Administration Warfarin Sodium 5 mg 02/09/21 18:00 Warfarin Sodium 5 Mg Tablet PO DAILY@1800 [facility] Labs CBC & Chem 7: 02/09/21 05:53 02/09/21 05:53 Assessment and Plan (1) Flash pulmonary edema: Status: Acute (2) Hypertensive emergency: Status: Acute (3) Atrial fibrillation: Problem details: 40 min reviewing chart evaluating patient and documenting Status: Acute (4) CHF exacerbation: Status: Acute (5) Elevated troponin: Status: Acute (6) CKD (chronic kidney disease): Status: Acute (7) Subtherapeutic international normalized ratio (INR): Status: Acute Assessment and Plan: This is a 80-year-old male with past medical history of CHF last echocardiogram done in 2014 shows an ejection fraction of 25% presents the hospital with complaints of chest pain as well as shortness of breath. flash pulmonary edema secondary to hypertensive emergency blood pressure now more controlled will resume his home medication Keep on Lasix 40 IV for the CHF exacerbation hypertensive emergency Better controlled this morning resume his home medications including Imdur and lisinopril Increase carvedilol, hydralazine Cardiology input appreciated CHF exacerbation secondary to hypertensive emergency last echocardiogram done in 2014 shows an ejection fraction of 25-30%, to repeat tomorrow Continue low-sodium diet, daily weight, strict I&O elevated troponin likely type 2 no EKG changes CKD creatinine mildly worse than baseline continue to monitor with BMP AFib with subtherapeutic INR unclear how much warfarin he uses at home Continue with 5 mg daily PT INR daily DVT prophylaxis: Warfarin
[2021-02-09] MEDS: hydrALAZINE HCl 50 MG TABLET PO ×2 (15:11→22:19)
[2021-02-09 15:17] LABS: B Type Natriuretic Peptide 806 pg/mL (<100)
[2021-02-09] MEDS: Warfarin Sodium 10 MG TABLET PO (17:22)
[2021-02-09] MEDS: carvediloL 12.5 MG TABLET PO (22:21)
[2021-02-10] VITALS (8 sets, daily range): BP systolic 96–145; BP diastolic 54–86; PULSE 51–66; RESP 16–20; TEMP 36.3–37.2; O2SAT 93–98; BMI 23.8
[2021-02-10 07:16] LABS: Anion Gap 17 (12-20); Blood Urea Nitrogen 55 mg/dL (9-16); Calcium 8.6 mg/dL (8.4-10.2); Carbon Dioxide 23 mmol/L (22-29); Chloride 104 mmol/L (96-108); Creatinine Clr Calc Pharmacy 29.8; Estimated Glomerular Filt Rate 29; Glucose Random 90 mg/dL (60-115); Potassium 3.2 mmol/L (3.3-5.1); Sodium 141 mmol/L (135-145)
[2021-02-10] MEDS: 0.9 % Sodium Chloride Flush 3 ML SYRINGE IVFLUSH ×3 (08:01→21:18)
[2021-02-10] MEDS: Isosorbide Dinitrate 10 MG TABLET PO ×3 (08:01→21:16)
[2021-02-10] MEDS: Tamsulosin HCL 0.4 MG CAPSULE PO (08:01)
[2021-02-10] MEDS: hydrALAZINE HCl 50 MG TABLET PO ×3 (08:01→21:18)
[2021-02-10] MEDS: Atorvastatin Calcium 40 MG TABLET PO (08:01)
[2021-02-10] MEDS: carvediloL 12.5 MG TABLET PO ×2 (08:01→21:18)
[2021-02-10 08:40] LABS: INTERNATIONAL NORM RATIO 1.2 (0.9-1.1); Prothrombin Time 14.6 SEC (10.8-13.0)
--- NOTE | 2021-02-10 10:12 | PM.PNCARD ---
Subjective Subjective Date of Service: 02/10/21 Interval history: He states he feels well. No specific complaints. No further chest pain or shortness of breath. Review of Systems Review of Systems Yes all other systems are reviewed and are negative Cardiovascular: Reports as per HPI, Reports no additional cardiovascular complaints, Denies acrocyanosis, Denies cool extremities, Denies painful fingertips, Denies chest pain, Denies chest pain at rest, Denies diaphoresis, Denies syncope, Denies irregular heart rhythm, Denies claudication, Denies leg edema, Denies lightheadedness, Denies palpitations and Denies dyspnea Respiratory: Denies dyspnea Denies syncope Endocrine: Denies palpitations Physical Exam Vital Signs: Last Vital Signs Temp 97.6 F 02/10/21 08:00 Pulse 60 02/10/21 08:00 Resp 16 02/10/21 08:00 BP 126/78 02/10/21 08:00 Pulse Ox 96 02/10/21 08:00 Body Mass Index 23.8 Const General: cooperative, comfortable and no acute distress Orientation/consciousness: patient oriented x3 HENAR Other: Unremarkable Neck Neck: Yes normal visual inspection Chest Chest palpation & inspection: normal inspection of the chest Resp Auscultation: clear to auscultation bilaterally, no crackles and no wheezes Cardio Jugular venous distension: no JVD Palpation: normal PMI Heart sounds: S1 normal heart sound present, S2 normal heart sound present, no gallops, no murmurs and no rubs GI Palpation (GI): Soft to palpation Back/Spine/Pelvis Other: unremarkable Skin General skin exam: no rashes or lesions noted Neuro General: patient oriented x3 Extrem General: Yes no clubbing, cyanosis or edema Psych Mental Status: mental status grossly normal Results Labs and Meds Result diagrams: 02/09/21 05:53 02/10/21 05:50 Lab results: Laboratory Results - last 24 hr 02/09/21 02/10/21 02/10/21 14:19 05:50 08:01 PT 14.6 H INR 1.2 H Sodium 141 Potassium 3.2 L Chloride 104 Carbon Dioxide 23 Anion Gap 17 BUN 55 H D Creatinine 2.17 H Estim Creat Clear Calc 29.8 Estimated GFR 29 Random Glucose 90 D Calcium 8.6 B-Natriuretic Peptide 806 H Progress Note: A&P Assessment and plan (1) Hypertensive emergency: Status: Acute (2) Acute on chronic systolic and diastolic heart failure, NYHA class 3: Status: Acute (3) Paroxysmal atrial fibrillation: Status: Acute (4) Cardiac resynchronization therapy defibrillator ([employer]-D) in place: Status: Acute (5) Chronic obstructive pulmonary disease, unspecified: Status: Acute (6) Pulmonary hypertension: Status: Inactive (7) CKD (chronic kidney disease): Status: Acute Assessment and Plan: Cardiac catheterization data reviewed from 2018. He had nonobstructive disease with no more than minimal disease. Currently, troponins are elevated to the NSTEMI range but that is most likely from hypertension and probably heart failure. Doubt any acute plaque rupture. Cardiac BNP elevated 2000 on admission, but improved to 806. His blood pressure is better. We have increased the hydralazine dosing as well as the carvedilol dosing. Renal function is slightly higher than baseline. Hold diuretic/lisinopril. Echocardiogram today. Fall Risk Details Current Medications: Current Medications Generic Name Dose Route Start Last Admin Trade Name Freq PRN Reason Stop Dose Admin Acetaminophen 650 mg 02/08/21 21:55 Acetaminophen 325 Mg Tablet PO Q6H PRN Pain, Mild (Pain Scale 1-3) Atorvastatin Calcium 40 mg 02/09/21 09:00 02/10/21 08:01 Atorvastatin Calcium 40 Mg Tablet PO 40 mg DAILY RICK Administration Carvedilol 12.5 mg 02/09/21 21:00 02/10/21 08:01 Carvedilol 12.5 Mg Tablet PO 12.5 mg BID RICK Administration Protocol Docusate Sodium 100 mg 02/08/21 21:55 Docusate Sodium 100 Mg Capsule PO DAILY PRN Constipation Hydralazine HCl 50 mg 02/09/21 15:00 02/10/21 08:01 Hydralazine Hcl 50 Mg Tablet PO 50 mg TID RICK Administration Protocol Isosorbide Dinitrate 10 mg 02/08/21 21:55 02/10/21 08:01 Isosorbide Dinitrate 10 Mg Tablet PO 10 mg TID RICK Administration Protocol Ondansetron HCl 4 mg 02/08/21 21:55 Ondansetron Hcl 4 Mg/2 Ml Vial IVPUSH Q8H PRN Nausea and Vomiting Sodium Chloride 3 ml 02/09/21 00:00 02/10/21 08:01 0.9 % Sodium Chloride Flush 3 Ml Syringe IVFLUSH 3 ml QSHIFT RICK Administration Tamsulosin HCl 0.4 mg 02/09/21 10:35 02/10/21 08:01 Tamsulosin Hcl 0.4 Mg Capsule PO 0.4 mg DAILY RICK Administration Warfarin Sodium 10 mg 02/09/21 18:00 02/09/21 17:22 Warfarin Sodium 10 Mg Tablet PO 10 mg DAILY@1800 RICK Administration Time Spent With Patient Time: Total time spent is greater than 50% in coordination of care (as documented) at patient's floor/unit and/or counseling patient: Time with patient: less than 15 minutes
--- NOTE | 2021-02-10 11:09 | MHC.CM.PN ---
met with pt filed hcp naming flavio short as his agent [phone] pt is agreeable to vna referrral made to [facility]
--- NOTE | 2021-02-10 11:28 | P.CDIC_ITS ---
CDI Concurrent Query Service Date: 02/10/21 Documentation Clarification: Please clarify if you are treating a proba ble/suspected/likely or confirmed: Acute on chronic diastolic and/or systolic CHF Chronic diastolic and/or systolic CHF Please specify if known Provider Response: Acute on Chronic Diastolic and/or Systolic CHF PLEASE DO NOT DELETE/MODIFY EXISTING CONTENT Additional information is needed in order to code to the highest accuracy and appropriate Severity of Illness (SOI). Please clarify the information noted below in your progress notes and discharge summary. Risk Factors/Clinical Indicators/Treatments orthopnea, edema, Sob, CT shows CHF with interstial edema BNP 2025 IV lasix BP 193/138 hypertensive emergency History of Echo with HF EF 25-30% CDS: Cherelle Almeida CCS, CDIS Contact Number: [phone] Please Review the information above and exercise your independent professional judgment in responding to the query. If you concur, pleas document in the PROGRESS NOTES and DISCHARGE SUMMARY. If you do not agree with the query, please document in the query above. THIS QUERY IS PART OF THE PERMANENT MEDICAL RECORD
--- NOTE | 2021-02-10 15:44 | HO.PM.IMPN ---
Subjective Subjective Date of Service: 02/10/21 Interval History: the patient was seen and evaluated this morning Laying in bed, feels comfortable off the oxygen blood pressure better controlled today Kidney function worsened Denies any fever, chills or shortness of breath No reported other overnight events. Systemic review: No fever, chills or weakness No chest pain, palpitation No shortness of breath or coughing No abdominal pain, nausea or vomiting No urinary symptoms No any rash or wounds Physical Exam Vital Signs: Vital Signs: Last Vital Signs Temp 98.7 F 02/10/21 12:00 Pulse 59 02/10/21 12:00 Resp 18 02/10/21 12:00 BP 135/68 02/10/21 12:00 Pulse Ox 98 02/10/21 12:00 Body Mass Index 23.8 Const: Other: Constitutional : Alert, oriented, not in distress Neck : Normal inspection, Supple Cardiovascular : RRR, S1 S2, no lower extremity edema Respiratory : Good bilateral air entry, no crackles, wheezes or rhonchi Gastrointestinal: soft, lax, Normal bowel sounds, Non tender Skin : Warm/Dry, No rash Neurological : Alert & oriented x3, No focal deficit Objective Data Current Medications Generic Name Dose Route Start Last Admin Trade Name Freq PRN Reason Stop Dose Admin Acetaminophen 650 mg 02/08/21 21:55 Acetaminophen 325 Mg Tablet PO Q6H PRN Pain, Mild (Pain Scale 1-3) Atorvastatin Calcium 40 mg 02/09/21 09:00 02/10/21 08:01 Atorvastatin Calcium 40 Mg Tablet PO 40 mg DAILY RICK Administration Carvedilol 12.5 mg 02/09/21 21:00 02/10/21 08:01 Carvedilol 12.5 Mg Tablet PO 12.5 mg BID [facility] Administration Protocol Docusate Sodium 100 mg 02/08/21 21:55 Docusate Sodium 100 Mg Capsule PO DAILY PRN Constipation Hydralazine HCl 50 mg 02/09/21 15:00 02/10/21 14:04 Hydralazine Hcl 50 Mg Tablet PO 50 mg TID [facility] Administration Protocol Isosorbide Dinitrate 10 mg 02/08/21 21:55 02/10/21 14:04 Isosorbide Dinitrate 10 Mg Tablet PO 10 mg TID [facility] Administration Protocol Ondansetron HCl 4 mg 02/08/21 21:55 Ondansetron Hcl 4 Mg/2 Ml Vial IVPUSH Q8H PRN Nausea and Vomiting Sodium Chloride 3 ml 02/09/21 00:00 02/10/21 15:34 0.9 % Sodium Chloride Flush 3 Ml Syringe IVFLUSH 3 ml QSHIFT RICK Administration Tamsulosin HCl 0.4 mg 02/09/21 10:35 02/10/21 08:01 Tamsulosin Hcl 0.4 Mg Capsule PO 0.4 mg DAILY RICK Administration Warfarin Sodium 10 mg 02/09/21 18:00 02/09/21 17:22 Warfarin Sodium 10 Mg Tablet PO 10 mg DAILY@1800 RICK Administration Labs CBC & Chem 7: 02/09/21 05:53 02/10/21 05:50 Assessment and Plan (1) Flash pulmonary edema: Status: Acute (2) Hypertensive emergency: Status: Acute (3) Atrial fibrillation: Problem details: 40 min reviewing chart evaluating patient and documenting Status: Acute (4) CHF exacerbation: Status: Acute (5) Elevated troponin: Status: Acute (6) CKD (chronic kidney disease): Status: Acute (7) Subtherapeutic international normalized ratio (INR): Status: Acute Assessment and Plan: This is a 80-year-old male with past medical history of CHF last echocardiogram done in 2014 shows an ejection fraction of 25% presents the hospital with complaints of chest pain as well as shortness of breath. flash pulmonary edema secondary to hypertensive emergency blood pressure now more controlled will resume his home medication Hold Lasix for Juan Manuel I hypertensive emergency Better controlled this morning resume his home medications including Imdur and lisinopril Increase carvedilol, hydralazine Cardiology input appreciated Acute on chronic systolic CHF exacerbation secondary to hypertensive emergency Repeated echo showed EF of 32% with LVH Continue low-sodium diet, daily weight, strict I&O Hold Lasix for today elevated troponin likely type 2 no EKG changes Juan Manuel I on CKD creatinine worsened to 2.2 overnight with elevated BUN Hold lisinopril and furosemide Intake and output continue to monitor with BMP AFib with subtherapeutic INR unclear how much warfarin he uses at home INR 1.2 today Continue with 10 mg of warfarin today DVT prophylaxis: Warfarin
[2021-02-10] MEDS: Warfarin Sodium 10 MG TABLET PO (17:25)
--- NOTE | 2021-02-10 21:55 | CA_ITS ---
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 - There is moderately increased left ventricular wall thickness. - The left atrium is severely dilated. - No obvious valvular pathology seen on this study. Findings Left Ventricle Mildly increased left ventricular cavity size. There is moderately increased left ventricular wall thickness. The left ventricular systolic function is moderate to severely decreased. The visually estimated ejection fraction is between 30-35%. The calculated ejection fraction is 32% by biplane method. E/E prime ratio is between 8 and 15 consistent with indeterminate filling pressures. Evidence suggests grade I (mild) diastolic dysfunction. Globally hypokinetic. Right Ventricle Mildly increased right ventricular cavity size. There is normal right ventricular systolic function. There is an ICD wire seen in the right ventricle. Atria The left atrium is severely dilated. The right atrium is normal in size. Aortic Valve There is a normal trileaflet aortic valve. There is mild calcification of the aortic valve. There is no aortic valve stenosis. There is no aortic valve regurgitation. Mitral Valve The mitral valve appears normal. There is trace mitral valve regurgitation. There is no mitral valve stenosis. Pulmonic Valve The pulmonic valve was not well visualized. There is mild pulmonic valve regurgitation. Tricuspid Valve There is trace tricuspid valve regurgitation. The right ventricular systolic pressure is 35 mmHg. Top normal RVSP. Great Vessels The aortic annulus, sinuses of valsalva, and asc aorta are normal in size. Venous The inferior vena cava is normal in size and collapses greater than 50% with inspiration. Pericardium/Pleural There is no evidence of pericardial effusion. Prior Study Comparison No significant change compared to prior study dated: 09/12/2015. Recommendations, Care & Conclusions No obvious valvular pathology seen on this study. Measurements 2D Linear Measurements IVSd: 1.29 0.6-0.9/0.6-1.0 cm LVIDd: 6.04 3.9-5.3/4.2-5.9 cm LVIDd Index: 3.00 2.4-3.2/2.2-3.1 cm/m2 LVIDs: 4.47 2.0-3.6 cm LVPWd: 1.35 0.7-1.1 cm Ao Root: 3.30 2.1-3.5 cm LA Diam: 4.20 2.7-3.8/3.0-4.0 cm LAIDs Index: 2.09 1.5-2.3 cm/m2 LV Mass: 450.97 67-162/88-224 g LV Mass Index: 224.36 43-95/49-115 g/m2 LVOT Diam: 2.40 3.0+(-)1.3 cm 2D Systolic Function EF 4C: 29.90 >55% EF 2C: 28.70 >55% EF BiP: 31.60 >55% Mitral Valve MV Pk E: 0.55 MV PK A: 0.67 MV Decel Time: 228.00 E/A: 0.80 E'Lateral: 5.22 E'Medial: 3.81 E/E' Med: 14.30 E/E' Lat: 10.40 PHT: 67.00 MVA PHT: 3.28 Decel Hall: 2.39 Aortic Valve AoV Pk Dread: 1.46 AoV Mn Dread: 1.01 AoV VTI: 0.32 AoV Pk Grad: 9.00 Aov Mn Grad: 5.00 CLAUDINE Cont.VTI: 2.50 LVOT LVOT Pk Dread: 0.91 LVOT Mn Dread: 0.59 LVOT VTI: 0.18 LVOT Pk Grad: 3.00 LVOT Mn Grad: 2.00 LVOT Diam: 2.40 LVOT Area: 4.52 Diastolic Function MV Pk E: 0.55 MV Pk A: 0.67 E/A: 0.80 E'Medial: 3.81 E/E' Med: 14.30 E' Laterial: 5.22 E/E' Lat: 10.40 Tricuspid Valve TR Pk Dread: 2.84 TR Pk Grad: 32.00 RA Press: 3.00 RVSP: 35.00 Great Vessels Aorta Ao Root-2D: 3.30 2.0-3.7 cm Ao Asc: 3.90 2.1-3.4 cm Pulmonary Valve PV Pk Dread: 1.07 Peak PV Grad: 5.00 Updated in Other Vendor System with Status of Final Gordy Méndez MD electronically signed on 02/10/2021 10:53:55 AM with status of Final
[2021-02-11 04:00] VITALS: BP 126/86; PULSE 60; RESP 18; TEMP 36.4; O2SAT 96
[2021-02-11 06:26] VITALS: BMI 23.8
[2021-02-11 07:02] LABS: INTERNATIONAL NORM RATIO 1.3 (0.9-1.1); Prothrombin Time 15.3 SEC (10.8-13.0)
[2021-02-11 07:37] LABS: Anion Gap 13 (12-20); Blood Urea Nitrogen 57 mg/dL (9-16); Calcium 8.6 mg/dL (8.4-10.2); Carbon Dioxide 27 mmol/L (22-29); Chloride 106 mmol/L (96-108); Creatinine Clr Calc Pharmacy 32.1; Estimated Glomerular Filt Rate 32; Glucose Random 100 mg/dL (60-115); Potassium 3.7 mmol/L (3.3-5.1); Sodium 142 mmol/L (135-145)
[2021-02-11 08:00] VITALS: BP 152/87; PULSE 60; RESP 16; TEMP 36.2; O2SAT 98
--- NOTE | 2021-02-11 08:26 | P.CDIC_ITS ---
CDI Concurrent Query Service Date: 02/11/21 Documentation Clarification: Please clarify if you are treating a proba ble/suspected/likely or confirmed: Is there a diagnosis that correlates with this documentation: Elevated Troponin, likely Type 2 Myocardial infarction Please specify if other cardiac issue Provider Response: Other Other Diagnosis: Elevated Troponin, likely Type 2 PLEASE DO NOT DELETE/MODIFY EXISTING CONTENT Additional information is needed in order to code to the highest accuracy and appropriate Severity of Illness (SOI). Please clarify the information noted below in your progress notes and discharge summary. Risk Factors/Clinical Indicators/Treatments As noted in assessment plan of progress note Elevated troponin, likely Type 2 no EKG changes. Trop: 140.0 167.0 CHF, hypertensive emergency CDS: Cherelle Almeida CCS, CDIS Contact Number: [phone] Please Review the information above and exercise your independent professional judgment in responding to the query. If you concur, pleas document in the PROGRESS NOTES and DISCHARGE SUMMARY. If you do not agree with the query, please document in the query above. THIS QUERY IS PART OF THE PERMANENT MEDICAL RECORD
[2021-02-11] MEDS: hydrALAZINE HCl 50 MG TABLET PO (08:56)
[2021-02-11] MEDS: Tamsulosin HCL 0.4 MG CAPSULE PO (08:56)
[2021-02-11] MEDS: carvediloL 12.5 MG TABLET PO (08:56)
[2021-02-11] MEDS: Isosorbide Dinitrate 10 MG TABLET PO (08:57)
[2021-02-11] MEDS: Atorvastatin Calcium 40 MG TABLET PO (08:57)
--- NOTE | 2021-02-11 09:26 | MHC.CM.PN ---
pt to be dcd today hvns notified
--- NOTE | 2021-02-11 09:37 | P.PNCA_ITS ---
Subjective Subjective Date of Service: 02/11/21 Interval history: Patient states that he feels fine. No chest pain or shortness of breath. Review of Systems Review of Systems Yes all other systems are reviewed and are negative Cardiovascular: Reports as per HPI, Reports no additional cardiovascular complaints, Denies acrocyanosis, Denies cool extremities, Denies painful fingertips, Denies chest pain, Denies chest pain at rest, Denies diaphoresis, Denies syncope, Denies irregular heart rhythm, Denies claudication, Denies leg edema, Denies lightheadedness, Denies palpitations and Denies dyspnea Respiratory: Denies dyspnea Denies syncope Endocrine: Denies palpitations Physical Exam Vital Signs: Last Vital Signs Temp 97.1 F 02/11/21 08:00 Pulse 60 02/11/21 08:00 Resp 16 02/11/21 08:00 BP 152/87 H 02/11/21 08:00 Pulse Ox 98 02/11/21 08:00 Body Mass Index 23.8 Const General: cooperative, comfortable and no acute distress Orientation/consciousness: patient oriented x3 HENOK Other: Unremarkable Neck Neck: Yes normal visual inspection Chest Chest palpation & inspection: normal inspection of the chest Resp Auscultation: clear to auscultation bilaterally, no crackles and no wheezes Cardio Jugular venous distension: no JVD Palpation: normal PMI Heart sounds: S1 normal heart sound present, S2 normal heart sound present, no gallops, no murmurs and no rubs GI Palpation (GI): Soft to palpation Back/Spine/Pelvis Other: unremarkable Skin General skin exam: no rashes or lesions noted Neuro General: patient oriented x3 Extrem General: Yes no clubbing, cyanosis or edema Psych Mental Status: mental status grossly normal Results Labs and Meds Result diagrams: 02/09/21 05:53 02/11/21 06:05 Lab results: Laboratory Results - last 24 hr 02/11/21 02/11/21 06:05 06:05 PT 15.3 H INR 1.3 H Sodium 142 Potassium 3.7 Chloride 106 Carbon Dioxide 27 Anion Gap 13 BUN 57 H Creatinine 2.01 H Estim Creat Clear Calc 32.1 Estimated GFR 32 Random Glucose 100 Calcium 8.6 Progress Note: A&P Assessment and plan (1) Hypertensive emergency: Status: Acute (2) Acute on chronic systolic and diastolic heart failure, NYHA class 3: Status: Acute (3) Paroxysmal atrial fibrillation: Status: Acute (4) Cardiac resynchronization therapy defibrillator (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 He had nonobstructive disease with no more than minimal disease. Currently, troponins are elevated to the NSTEMI range but that is most likely from hypertension and probably heart failure. Doubt any acute plaque rupture. Cardiac BNP elevated 2000 on admission, but improved to 806. His blood pressure is better. We have increased the Hydralazine dosing as well as the Carvedilol dosing. Renal function is slightly higher than baseline. Diuretics/lisinopril were held but may resume once labs stabilize. 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 Fall Risk Details Current Medications: Current Medications Generic Name Dose Route Start Last Admin Trade Name Freq PRN Reason Stop Dose Admin Acetaminophen 650 mg 02/08/21 21:55 Acetaminophen 325 Mg Tablet PO Q6H PRN Pain, Mild (Pain Scale 1-3) Atorvastatin Calcium 40 mg 02/09/21 09:00 02/11/21 08:57 Atorvastatin Calcium 40 Mg Tablet PO 40 mg DAILY RICK Administration Carvedilol 12.5 mg 02/09/21 21:00 02/11/21 08:56 Carvedilol 12.5 Mg Tablet PO 12.5 mg BID RICK Administration Protocol Docusate Sodium 100 mg 02/08/21 21:55 Docusate Sodium 100 Mg Capsule PO DAILY PRN Constipation Hydralazine HCl 50 mg 02/09/21 15:00 02/11/21 08:56 Hydralazine Hcl 50 Mg Tablet PO 50 mg TID RICK Administration Protocol Isosorbide Dinitrate 10 mg 02/08/21 21:55 02/11/21 08:57 Isosorbide Dinitrate 10 Mg Tablet PO 10 mg TID RICK Administration Protocol Ondansetron HCl 4 mg 02/08/21 21:55 Ondansetron Hcl 4 Mg/2 Ml Vial IVPUSH Q8H PRN Nausea and Vomiting Sodium Chloride 3 ml 02/09/21 00:00 02/11/21 08:58 0.9 % Sodium Chloride Flush 3 Ml Syringe IVFLUSH Not Given QSHIFT [facility] Tamsulosin HCl 0.4 mg 02/09/21 10:35 02/11/21 08:56 Tamsulosin Hcl 0.4 Mg Capsule PO 0.4 mg DAILY RICK Administration Warfarin Sodium 10 mg 02/09/21 18:00 02/10/21 17:25 Warfarin Sodium 10 Mg Tablet PO 10 mg DAILY@1800 RICK Administration Time Spent With Patient Time: Total time spent is greater than 50% in coordination of care (as documented) at patient's floor/unit and/or counseling patient: Time with patient: less than 15 minutes
--- NOTE | 2021-02-11 09:38 | P.DS_ITS ---
DS: Providers Provider Date of Service: 02/11/21 Date of admission: 02/08/21 21:40 Primary care physician: Wolfgang Alcala MD Consults: 02/09/21 06:04 Consult to Cardiology Routine Consulting Provider: Gordy Méndez Reason for consultation: CHF Has provider been notified: No DS: Diagnosis Discharge Diagnosis (1) Flash pulmonary edema: Status: Acute (2) Hypertensive emergency: Status: Acute (3) Atrial fibrillation: Status: Acute (4) CHF exacerbation: Status: Acute (5) Elevated troponin: Status: Acute (6) CKD (chronic kidney disease): Status: Acute (7) Subtherapeutic international normalized ratio (INR): Status: Acute DS: Medications Discharge Medications Home Medications: Home Medications Medication Instructions Recorded Confirmed warfarin 5 mg tablet See Rx Instructions .ROUTE .COMPLEX 01/09/21 02/08/21 lisinopril 5 mg PO DAILY 02/09/21 02/09/21 tamsulosin 0.4 mg PO DAILY 02/09/21 02/09/21 Previous Rx's Medication Instructions Recorded allopurinol 300 mg tablet 300 mg PO DAILY #30 tab 12/19/20 atorvastatin 40 mg tablet 40 mg PO DAILY #90 tab 12/19/20 isosorbide dinitrate 10 mg tablet 10 mg PO TID 90 Days #270 tab 12/25/20 torsemide 20 mg tablet 20 mg PO BID #180 tab 01/22/21 carvedilol 12.5 mg PO BID #60 tab 02/11/21 hydralazine 50 mg PO TID #90 tab 02/11/21 DS: Summary Hospital Course Hospital Course: Admission note HPI This is an 80-year-old male with past medical history of AFib, hypertension, CHF, pulmonary hypertension, HLD, emphysema/COPD, BPH and history of prostate cancer status post radiation therapy presents to the hospital with complaints of chest pain as well as shortness of breath. Patient reports that he started having left-sided burning in sensation chest pain that started the day prior to presentation, the pain was constant, nonradiating, 8/10, associated with significant shortness of breath, he has also been having coughing that is dry nonproductive, orthopnea, and lower extremity edema. Patient reports compliance with his water pill as well as low-sodium intake. He also confirms compliance with his blood pressure medications. Patient was placed on BiPAP for short period of time while in the ED. He otherwise denies any headache, change in vision, no abdominal pain nausea or vomiting, no diarrhea constipation, no urinary symptoms. No weakness numbness and tingling Arrival to the ED vitals are significant for a blood pressure of 193/138 heart rate of 115 other vitals within normal range Labs are significant for 6.9, hemoglobin of 12.9, BUN of 30, creatinine of 1.57 which is around his baseline, total bili of 1.9, high sensitivity troponin of 113, increased to 140, BNP of 202, UA negative, COVID-19 negative, CT of the chest shows cardiomegaly, bilateral pleural effusion, some generalized ground-glass changes of all which may be indicative of CHF with interstitial edema. Hospital course Admitted to the hospital for treatment of acute pulmonary edema as a result of acute on chronic systolic CHF exacerbation. Seems to be a result of hypertensive emergency as he presented to the hospital with blood pressure readings of around 190/140. Responded to IV and oral medications in the e mergency and required the use of BiPAP at that point during the emergency stay. Patient was treated with IV Lasix with good response over the course of hospital stay as BNP dropped from 2000 to 800 with mild worsening of his kidney function. An echo was done showing EF of 32% with LVH. Cardiology evaluated the patient and followed him during the hospital stay. His blood pressure was controlled with his home medication and increase his home dose of hydralazine and carvedilol. Blood pressure was within normal for the last 24 hours prior to discharge. His INR was noted to be subtherapeutic at around 1. 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 He was started on higher dose of 10 mg of warfarin as INR improved to 1.3. Continue current dose and repeat INR at home with [facility]. Discharge plan Continue home medications Increase hydralazine to 50 mg 3 times a day Increase carvedilol to 12.5 mg twice Daily Take warfarin 10 mg today To follow-up with blood test of INR and kidney function with [facility]NA in 3 days. Monitor blood pressure at home for the next 2 weeks and reported readings to PCP or rotary drum tanner for further adjustments of medications. Time Spent with Patient Time attestation: Total time spent providing and/or coordinating discharge services: Discharge coordination time: Greater than 30 minutes Physical Exam Vital Signs: Vital Signs: Last Vital Signs Temp 97.1 F 02/11/21 08:00 Pulse 60 02/11/21 08:00 Resp 16 02/11/21 08:00 BP 152/87 H 02/11/21 08:00 Pulse Ox 98 02/11/21 08:00 Body Mass Index 23.8 Const: Other: Constitutional : Alert, oriented, not in distress Neck : Normal inspection, Supple Cardiovascular : RRR, S1 S2, no lower extremity edema Respiratory : Good bilateral air entry, no crackles, wheezes or rhonchi Gastrointestinal: soft, lax, Normal bowel sounds, Non tender Skin : Warm/Dry, No rash Neurological : Alert & oriented x3, No focal deficit DS: Data Data Completed and Pending Labs on day of discharge: Laboratory Results - last 24 hr 02/11/21 02/11/21 06:05 06:05 PT 15.3 H INR 1.3 H Sodium 142 Potassium 3.7 Chloride 106 Carbon Dioxide 27 Anion Gap 13 BUN 57 H Creatinine 2.01 H Estim Creat Clear Calc 32.1 Estimated GFR 32 Random Glucose 100 Calcium 8.6 Discharge Plan Discharge Patient Disposition: Home Health Service Referrals: [facility] [Outside] Wolfgang Alcala MD [Primary Care Provider] - Discharge Medications: New carvedilol 12.5 mg Tablet 12.5 mg PO BID Qty: 60 RF: 0 hydralazine 50 mg Tablet 50 mg PO TID Qty: 90 RF: 0 Continued allopurinol 300 mg tablet 300 mg PO DAILY Qty: 30 RF: 0 atorvastatin 40 mg tablet 40 mg PO DAILY Qty: 90 RF: 1 isosorbide dinitrate 10 mg tablet 10 mg PO TID 90 Days Qty: 270 RF: 8 torsemide 20 mg tablet 20 mg PO BID Qty: 180 RF: 8 tamsulosin 0.4 mg Capsule 0.4 mg PO DAILY RF: 0 lisinopril 5 mg Tablet 5 mg PO DAILY RF: 0 Discontinued hydralazine 25 mg tablet 25 mg PO TID Qty: 90 RF: 0 carvedilol 6.25 mg Tablet 6.25 mg PO BID RF: 0 Discharge Orders: Discharge Order (Routine); Ordered 02/11/21 Ordered By: Tami Ng Diet: advance to usual diet Activity on Discharge: As tolerated Stand Alone Forms: Patient Portal Discharge page Other Ambulatory Orders: Basic Metabolic Panel (Routine) Timeframe: 3 Days Facility: [facility] - Location: Laboratory Ordered By: Tami Ng Prothrombin Time INR (Routine) Timeframe: 3 Days Facility: [facility] - Location: Laboratory Ordered By: Tami Ng Care Plan Goals: Read below Health Concerns: Read below Plan of Treatment: Admitted to the hospital for treatment of difficulty breathing and shortness of breath. Blood work and images in the emergency were consistent with acute heart failure with edema in your lungs. You were treated with IV water pills with good response over the course of hospital stay. We believe this episode was a result of high blood pressure readings. Your treated with IV and oral medications with fair response. Cardiology evaluated you and changes were made to your home medications. Your blood pressure has been running within normal for the last 24 hours. Your INR level was noted to below target of 2. Warfarin dose increased to 10 mg daily. Was noted as well to be worse than your baseline. It has improved over the last day so. Will need do monitor it as outpatient. Assessment: Continue your home medications Increase hydralazine to 50 mg 3 times a day Increase carvedilol to 12.5 mg twice Daily Take warfarin 10 mg today To follow-up with blood test of INR and kidney function with VNA. Monitor your blood pressure at home for the next 2 weeks and reported readings to PCP or rotary drum tanner for further adjustments of your medications.
--- NOTE | 2021-02-11 10:13 | W.MHC.F2F ---
Service Date Service Date: 02/11/21 Encounter Date of encounter: 02/11/21 Reasons for Services Reason for fpc: monitoring of PT/INR, teach disease management and other (Monitor blood pressure readings) Homebound: Leaving the home is medically contraindicated at this time without the asist of a device and/or another person due th the listed conditions above and below. Certification: Based on the above findings, I certify that this patient is confined to the home and needs intermittent fpc care, physical therapy and/or speech therapy, or continues to need occupational therapy. The patient is under my care, and I have initiated the establishment of the plan of care. The patient will be followed by a physician who will periodically review the plan of care.
== END 2021-02-11 13:14 | disposition home health service (06) | DRG 291 ==
LOC: HO.ED 21:25 → HO.EDOVER 21:54 → HO.IMC 02-09 01:01
PROVIDERS: Nurse Practitioner Primary Care; Admitting Provider Internal Medicine; Emergency Provider Internal Medicine; PCP Internal Medicine; Visit Provider Student in an Organized Health Care Education/Training Program
DX: I13.0 Hypertensive heart and chronic kidney disease with heart failure and stage 1 through stage 4 chronic kidney disease, or unspecified chronic kidney disease (principal); I50.23 Acute on chronic systolic (congestive) heart failure; I16.1 Hypertensive emergency; R79.1 Abnormal coagulation profile; I48.0 Paroxysmal atrial fibrillation; J44.9 Chronic obstructive pulmonary disease, unspecified; N18.32 Chronic kidney disease, stage 3b; E11.22 Type 2 diabetes mellitus with diabetic chronic kidney disease; Z95.810 Presence of automatic (implantable) cardiac defibrillator; Z20.822 Contact with and (suspected) exposure to COVID-19; Z87.891 Personal history of nicotine dependence; Z79.01 Long term (current) use of anticoagulants; Z79.899 Other long term (current) drug therapy
CPT/HCPCS: 0241U; 36415; 71045; 71250; 80048; 80076; 81001; 83615; 83880; 84145; 84484; 85025; 85610; 85730; 86140; 93005; 93306; 94640; 94644; 94660; 96374; 96375; 99285; 99291; J1940; J2930

== ENCOUNTER 2021-02-17 10:16 | Outpatient (REF) | payer MEDICARE, SELFPAY ==
[2021-02-17 10:57] LABS: Anion Gap 15 (12-20); Blood Urea Nitrogen 45 mg/dL (9-16); Calcium 8.8 mg/dL (8.4-10.2); Carbon Dioxide 26 mmol/L (22-29); Chloride 107 mmol/L (96-108); Estimated Glomerular Filt Rate 30; Glucose Random 100 mg/dL (60-115); Sodium 144 mmol/L (135-145)
== END 2021-02-17 10:17 | disposition home or self-care (01) ==
LOC: HO.LNP 10:16
PROVIDERS: Visit Provider Internal Medicine
DX: I13.0 Hypertensive heart and chronic kidney disease with heart failure and stage 1 through stage 4 chronic kidney disease, or unspecified chronic kidney disease (principal); N19 Unspecified kidney failure; I50.9 Heart failure, unspecified
CPT/HCPCS: 80048

== ENCOUNTER 2022-03-27 13:16 | Outpatient (REF) | payer MEDICARE, SELFPAY ==
[2022-03-27 13:32] LABS: MANUAL DIFF FLAG NO
[2022-03-27 13:51] LABS: Basophils Percent Auto 0.8 % (0-2); Eosinophils Absolute Auto 0.2 X10*3/uL (0.0-0.4); Eosinophils Percent Auto 4.4 % (0-4); Hemoglobin 10.3 g/dl (14.0-18.0); Lymphocytes Absolute Auto 1.1 X10*3/uL (1.2-4.9); Lymphocytes Percent Auto 29.8 % (20-40); Mean Corpuscular HGB Conc 31.2 g/dl (31.0-36.0); Mean Corpuscular Hemoglobin 25.4 pg (27.0-33.0); Mean Corpuscular Volume 81.3 fL (80.0-98.0); Monocytes Absolute Auto 0.5 X10*3/uL (0.1-1.2); Monocytes Percent Auto 12.3 % (2-11); Neutrophils Absolute Auto 1.9 x10*3/uL (2.0-8.3); Neutrophils Percent Auto 52.7 % (45-73); Platelet Count 127 X10*3/uL (160-400); Red Blood Count 4.06 X10*6/uL (4.60-5.80); White Blood Count 3.7 X10*3/uL (4.8-10.8)
[2022-03-27 14:14] LABS: Alanine Aminotransferase 12 U/L (0-40); Albumin Level 4.1 g/dL (3.5-5.0); Alkaline Phosphatase 64 U/L (39-117); Anion Gap 12 (12-20); Aspartate Amino Transferase 16 U/L (5-37); Bilirubin Total 1.3 mg/dL (0.0-1.0); Blood Urea Nitrogen 110 mg/dL (9-16); Calcium 9.3 mg/dL (8.4-10.2); Carbon Dioxide 22 mmol/L (22-29); Chloride 111 mmol/L (96-108); Cholesterol 130 mg/dL; Estimated Glomerular Filt Rate 14; Glucose Fasting 96 mg/dL (60-99); HDL Cholesterol 31 mg/dL; LDL Cholesterol Calculated 85 mg/dl; Potassium 4.3 mmol/L (3.3-5.1); Sodium 141 mmol/L (135-145); Total Protein 6.8 g/dL (6.5-8.0); Triglycerides 73 mg/dL; Uric Acid 3.6 mg/dL (3.4-7.0)
[2022-03-27 14:32] LABS: Thyroid Stimulating Hormone 0.85 uIU/mL (0.32-4.0)
== END 2022-03-27 13:17 | disposition home or self-care (01) ==
LOC: HO.LAB 13:16
PROVIDERS: PCP Internal Medicine; Visit Provider Internal Medicine
DX: Z00.00 Encounter for general adult medical examination without abnormal findings (principal); M10.9 Gout, unspecified; R51.9 Headache, unspecified; I10 Essential (primary) hypertension
CPT/HCPCS: 36415; 80048; 80053; 80061; 84443; 84550; 85025

== ENCOUNTER 2023-05-12 11:45 | Outpatient (AMB) | payer MEDICARE, SELFPAY ==
[2023-05-12 12:39] VITALS: BP 112/80; PULSE 60; O2SAT 96; BMI 22.9
--- NOTE | 2023-05-12 12:39 | MHC.PC.OV ---
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 Accompanied by: Self / Same As Patient Allergies No Known Allergies [No Known Allergies*] Allergy (Unknown, Verified 05/12/23 12:40) Medication List - Last Reconciled 05/12/23 by Wolfgang Alcala MD albuterol sulfate 90 mcg/actuation (ProAir HFA) 1 puff inhalation QID PRN allopurinol 300 mg PO DAILY amoxicillin 250 mg PO Q8H apixaban (Eliquis) 2.5 mg PO BID atorvastatin 40 mg PO DAILY 90 days carvedilol 6.25 mg PO BID hydralazine 50 mg See Protocol PO TID isosorbide dinitrate 10 mg PO TID 90 days latanoprost 0.005% 0 drps ophthalmic (eye) lisinopril 5 mg PO DAILY spironolactone 25 mg PO DAILY tamsulosin 0.4 mg PO DAILY torsemide 40 mg (2 x 20 mg) PO BID Tobacco use date assessed: 05/12/23 Fall risk assessment: No Falls in past year Last assessed Fall Risk: 05/12/23 Dental Screening Dental Screen Date: 05/12/23 Did you have a dental visit in the last 12 months?: No Did you have a dental problem in the last 6 months where you did not have access to dental care?: No Was dental information given to patient?: No HPI Annual Physical HPI Details CHF with chronic renal failure; due to see neph; sees cardiology regularly [facility] Medical History (Updated 03/01/23 @ 14:37 by Wolfgang Alcala MD) Atrial fibrillation Cardiac resynchronization therapy defibrillator ([employer]SEM[employer]ER-D) in place Chronic obstructive pulmonary disease, unspecified CKD (chronic kidney disease) Congestive heart failure History of COPD History of prostate cancer Hyperlipidemia Hyperlipidemia Hypertension Paroxysmal atrial fibrillation Pulmonary hypertension Renal insufficiency syndrome Surgical History History of rotator cuff surgery History of surgery on right wrist Family History Mother No problems noted. Father No problems noted. Social History Household Members: None Housing: House Do you presently have visiting nurse or other home services: No Alcohol intake: current Alcohol intake frequency: holidays/special occasions only Patient Tobacco Use Status: Former Tobacco user Tobacco use type: Cigarette e-Cigarette/Vaping Use: Never Used Second Hand Smoke Exposure: No service: No Current occupational status: retired Cognitive needs: No Hearing needs: No Vision needs: Yes (reading glasses) Questionnaire PHQ-9 Over the last 2 weeks, how often have you been bothered by any of the following problems? 1. Little interest or pleasure in doing things: not at all 2. Feeling down, depressed, or hopeless: not at all 3. Trouble falling or staying asleep, or sleeping too much: not at all 4. Feeling tired or having little energy: not at all 5. Poor appetite or overeating: not at all 6. Feeling bad about yourself - or that you are a failure or have let yourself or your family down: not at all 7. Trouble concentrating on things, such as reading the newspaper or watching television: not at all 8. Moving or speaking so slowly that other people could have noticed. Or the opposite - being so fidgety or restless that you have been moving around a lot more than usual: not at all 9. Thoughts that you would be better off or of hurting yourself in some way: not at all Total score: 0 Depression Screening Interpretation: Negative 50645 - PHQ-9 Billing: Yes Source: Developed by Drs. Benitez Freitas, Chata Betancourt, Paxton Antonio and colleagues, with an educational alma from [employer]. Thrive Questionnaire Date Thrive assessed: 05/12/23 I am a: Patient What is your living situation today?: I have a steady place to live Within the past 12 months, did the food you bought not last and you didn't have the money to get more?: Never true Within the past 12 months, did you worry whether your food would run out before you got money to buy more?: Never true Do you have trouble paying for medicines?: No Do you have trouble getting transportation to medical appointments?: No Do you have trouble paying your heating and electricity bill?: No Do you have trouble taking care of your child, family member or friend?: No Do you have trouble with day-to-day activities such as bathing, preparing meals, shopping, managing finances, etc.?: No Are you currently unemployed and looking for a job?: No Are you interested in more education?: No Please select the resources that you would like help with: None Currently or been in a relationship where the following occur: no concerns reported AUDIT C Alcohol Use Questionnaire (AUDIT-C) 1. How often do you have a drink containing alcohol?: Never Total Score: 0 Score Reviewed/Action Taken: Yes ELOINA-7 AMB Questionnaire ELOINA-7 Date ELOINA - 7 assessed: 05/12/23 Feeling nervous, anxious, or on edge: 0 = Not at all Not being able to stop or control worryin = Not at all Worrying too much about different things: 0 = Not at all Trouble relaxin = Not at all Being so restless that it is hard to sit still: 0 = Not at all Becoming easily annoyed or irritable: 0 = Not at all Feeling afraid as if something awful might happen: 0 = Not at all Total ELOINA-7 score (0-4 normal; 5-9 mild; 10-14 moderate; 15-21 severe): 0 Source: Developed by Drs. Benitez Freitas, Chata Betancourt, Paxton Antonio and colleagues, with an educational alma from [employer]. ELOINA-7 Assessment Billing ELOINA-7 Assessment Tool: ELOINA-7 Assessment 09675 Review of Systems Const Denies chills, Denies fatigue, Denies headache(s) and Denies weight loss Eyes Denies change in vision, Denies diplopia and Denies eye pain ENT Denies vertigo, Denies dizziness, Denies headache(s) and Denies nasal discharge Card Denies chest pain, Denies rapid heart rate and Denies dyspnea on exertion Resp Denies chest congestion, Denies cough, Denies pain with cough and Denies dyspnea on exertion GI Denies abdominal pain, Denies hematochezia and Denies change in bowel habits Musc Denies myalgias, Denies arthralgias and Denies joint swelling Skin/Breast Denies lesions and Denies unusual bruising Neuro Denies vertigo, Denies dizziness, Denies headache(s) and Denies focal weakness Endo Denies fatigue Physical exam (Primary Care) Vital Signs: Last Vital Signs Pulse 60 05/12/23 12:39 BP 112/80 05/12/23 12:39 Pulse Ox 96 05/12/23 12:39 Oxygen Delivery Method Room Air 05/12/23 12:39 BMI result Body Mass Index 22.9 Tobacco/Smoking Status: Tobacco use Status Tobacco use date assessed 05/12/23 05/12/23 12:44 Patient Tobacco Use Status Former Tobacco user 05/12/23 12:44 Tobacco use type Cigarette 05/12/23 12:44 e-Cigarette/Vaping Use Never Used 05/12/23 12:44 PHQ-9: PHQ-9 Score PHQ-9: Total score 0 05/12/23 12:44 Depression Screening Interpretation: Negative Thrive Assessment: Date of Thrive Assessment Date Thrive assessed 05/12/23 05/12/23 12:44 Currently or been in a relationship where the following occur: no concerns reported Advance Care Planning discussion: On file, no changes Forms completed: Health Care Proxy Const General: cooperative, healthy appearing and no acute distress Orientation/consciousness: oriented to person, oriented to place and oriented to time HENMT Head: Yes normal to inspection, Yes normocephalic and Yes atraumatic Mouth: Normal oral and palatal mucosa present and tongue normal Throat: Yes posterior oropharynx normal and Yes uvula midline Eyes General: appearance normal, both eyes and all related structures Neck Neck: Yes normal visual inspection, Yes full ROM and Yes no lymphadenopathy Thyroid: Thyroid normal Carotids: normal carotid upstroke Chest Chest palpation & inspection: normal inspection of the chest Resp Effort & Inspection: normal respiratory effort and able to speak in complete sentences Auscultation: clear to auscultation bilaterally Cardio Jugular venous distension: no JVD Palpation: normal PMI Rate: regular rate Rhythm: regular rhythm Heart sounds: S1 normal heart sound present and S2 normal heart sound present GI Inspection: Yes normal to inspection Palpation (GI): Soft to palpation and No hepatosplenomegaly present Auscultation: normal bowel sounds General: Yes no CVA tenderness Back/Spine/Pelvis Back: no CVA tenderness Skin General skin exam: no rashes or lesions noted Neuro General: oriented to person, oriented to place and oriented to time Extrem General: Yes normal to inspection and Yes full ROM Assessment and Plan Assessment & Plan (1) Physical exam: Code(s): Z00.00 - Encounter for general adult medical examination without abnormal findings Plan: stable (2) Congestive heart failure: Code(s): I50.9 - Heart failure, unspecified Plan: cont with card (3) Renal insufficiency syndrome: Code(s): N28.9 - Disorder of kidney and ureter, unspecified Plan: cont with neph Orders: Orders Lipid Panel Today E78.5 - Hyperlipidemia, unspecified Thyroid Stimulating Hormone Today E03.9 - Hypothyroidism, unspecified Complete Blood Count Auto Diff Today D64.9 - Anemia, unspecified Comprehensive [place]. Panel Fast Today N28.9 - Disorder of kidney and ureter, unspecified XR chest 2V Today R05.9 - Cough, unspecified Referrals Nephrology Referral N28.9 - Disorder of kidney and ureter, unspecified Medications: New amoxicillin 250 mg PO Q8H 30 caps 0RF Coding Level of Care Code Est Pt Prev Care >65y(62530) Diagnoses Physical exam Z00.00 Congestive heart failure I50.9 Renal insufficiency syndrome N28.9 Additional Codes ELOINA-7 Assessment Billing - ELOINA-7 Assessment Tool: ELOINA-7 Assessment 06194 ([id number]) Vital Signs *Quality* - Advance Care Planning discussion: On file, no changes ([id number])
== END 2023-05-12 13:17 | disposition home or self-care (01) ==
PROVIDERS: PCP Internal Medicine; Visit Provider Internal Medicine
DX: Z00.00 Encounter for general adult medical examination without abnormal findings (principal); I50.9 Heart failure, unspecified; N28.9 Disorder of kidney and ureter, unspecified; Z71.89 Other specified counseling
CPT/HCPCS: 1123F; 99397

== ENCOUNTER 2023-05-12 13:29 | Outpatient (REF) | payer MEDICARE, SELFPAY ==
--- NOTE | ~2023-05-12 | XR_ITS ---
EXAMINATION: XR CHEST CLINICAL INFORMATION: Cough COMPARISON: 02/08/2021 TECHNIQUE: 2 views of the chest were obtained. FINDINGS: Dual-chamber pacemaker device in place. Previously noted parenchymal disease essentially resolved. There is no acute superimposed process noted. No significant abnormality is noted involving the heart, lungs, mediastinum, bony thorax or soft tissues. XR/XR chest 2V IMPRESSION: No active chest disease.
[2023-05-12 13:37] LABS: MANUAL DIFF FLAG NO
[2023-05-12 14:14] LABS: Basophils Percent Auto 0.8 % (0-2); Eosinophils Absolute Auto 0.2 X10*3/uL (0.0-0.4); Eosinophils Percent Auto 4.8 % (0-4); Hematocrit 38.8 % (42.0-52.0); Hemoglobin 11.8 g/dl (14.0-18.0); Imm Gran Abs Auto 0.01 X10*3/uL (0.00-0.03); Imm Gran Pct Auto 0.3 % (0.0-0.4); Lymphocytes Absolute Auto 1.4 X10*3/uL (1.2-4.9); Lymphocytes Percent Auto 34.4 % (20-40); Mean Corpuscular HGB Conc 30.4 g/dl (31.0-36.0); Mean Corpuscular Hemoglobin 25.1 pg (27.0-33.0); Mean Corpuscular Volume 82.4 fL (80.0-98.0); Monocytes Absolute Auto 0.4 X10*3/uL (0.1-1.2); Monocytes Percent Auto 10.5 % (2-11); Neutrophils Absolute Auto 1.9 x10*3/uL (2.0-8.3); Neutrophils Percent Auto 49.2 % (45-73); Platelet Count 142 X10*3/uL (160-400); Red Blood Count 4.71 X10*6/uL (4.60-5.80); Red Cell Distribution Width 17.1 % (11.0-16.0); White Blood Count 3.9 X10*3/uL (4.8-10.8)
[2023-05-12 14:57] LABS: Alanine Aminotransferase 11 U/L (0-40); Albumin Level 4.3 g/dL (3.5-5.0); Alkaline Phosphatase 77 U/L (39-117); Anion Gap 13 (12-20); Aspartate Amino Transferase 15 U/L (5-37); Bilirubin Total 0.9 mg/dL (0.0-1.0); Blood Urea Nitrogen 72 mg/dL (9-16); Calcium 9.9 mg/dL (8.4-10.2); Carbon Dioxide 23 mmol/L (22-29); Chloride 110 mmol/L (96-108); Cholesterol 134 mg/dL; Estimated Glomerular Filt Rate 18; Glucose Fasting 112 mg/dL (60-99); HDL Cholesterol 42 mg/dL; LDL Cholesterol Calculated 75 mg/dl; Potassium 4.8 mmol/L (3.3-5.1); Sodium 141 mmol/L (135-145); Total Protein 7.4 g/dL (6.5-8.0); Triglycerides 89 mg/dL
[2023-05-12 15:13] LABS: Thyroid Stimulating Hormone 1.73 uIU/mL (0.32-4.0)
== END 2023-05-12 13:30 | disposition home or self-care (01) ==
LOC: HO.XRAY 13:29
PROVIDERS: PCP Internal Medicine; Visit Provider Internal Medicine
DX: E78.5 Hyperlipidemia, unspecified (principal); D64.9 Anemia, unspecified; N28.9 Disorder of kidney and ureter, unspecified; E03.9 Hypothyroidism, unspecified; R05.9 Cough, unspecified
CPT/HCPCS: 36415; 71046; 80053; 80061; 84443; 85025

== ENCOUNTER 2023-06-10 11:02 | Outpatient (AMB) | payer MEDICARE, SELFPAY ==
--- NOTE | 2023-06-10 12:48 | A.OFFPC_ITS ---
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 Accompanied by: Self / Same As Patient Allergies No Known Allergies [No Known Allergies*] Allergy (Unknown, Verified 06/10/23 12:49) Medication List - Last Reconciled 06/10/23 by Wolfgang Alcala MD albuterol sulfate 90 mcg/actuation (ProAir HFA) 1 puff inhalation QID PRN allopurinol 300 mg PO DAILY amoxicillin 250 mg PO Q8H apixaban (Eliquis) 2.5 mg PO BID atorvastatin 40 mg PO DAILY 90 days carvedilol 6.25 mg PO BID hydralazine 50 mg See Protocol PO TID isosorbide dinitrate 10 mg PO TID 90 days latanoprost 0.005% 0 drps ophthalmic (eye) lisinopril 5 mg PO DAILY spironolactone 25 mg PO DAILY tamsulosin 0.4 mg PO DAILY torsemide 40 mg (2 x 20 mg) PO BID Tobacco use date assessed: 06/10/23 Fall risk assessment: No Falls in past year Last assessed Fall Risk: 06/10/23 Dental Screening Dental Screen Date: 06/10/23 Did you have a dental visit in the last 12 months?: No Did you have a dental problem in the last 6 months where you did not have access to dental care?: No Was dental information given to patient?: No HPI 3 month F/U HPI Details gout, CHF and renal insuff; stable [facility] Medical History (Updated 03/01/23 @ 14:37 by Wolfgang Alcala MD) Atrial fibrillation Cardiac resynchronization therapy defibrillator (ADOBE BALL MIXER-D) in place Chronic obstructive pulmonary disease, unspecified CKD (chronic kidney disease) Congestive heart failure History of COPD History of prostate cancer Hyperlipidemia Hyperlipidemia Hypertension Paroxysmal atrial fibrillation Pulmonary hypertension Renal insufficiency syndrome Surgical History History of rotator cuff surgery History of surgery on right wrist Family History Mother No problems noted. Father No problems noted. Social History Household Members: None Housing: House Do you presently have visiting nurse or other home services: No Alcohol intake: current Alcohol intake frequency: holidays/special occasions only Patient Tobacco Use Status: Former Tobacco user Tobacco use type: Cigarette e-Cigarette/Vaping Use: Never Used Second Hand Smoke Exposure: No service: No Current occupational status: retired Cognitive needs: No Hearing needs: No Vision needs: Yes (reading glasses) Questionnaire PHQ-9 Over the last 2 weeks, how often have you been bothered by any of the following problems? 1. Little interest or pleasure in doing things: not at all 2. Feeling down, depressed, or hopeless: not at all 3. Trouble falling or staying asleep, or sleeping too much: not at all 4. Feeling tired or having little energy: not at all 5. Poor appetite or overeating: not at all 6. Feeling bad about yourself - or that you are a failure or have let yourself or your family down: not at all 7. Trouble concentrating on things, such as reading the newspaper or watching television: not at all 8. Moving or speaking so slowly that other people could have noticed. Or the opposite - being so fidgety or restless that you have been moving around a lot more than usual: not at all 9. Thoughts that you would be better off or of hurting yourself in some way: not at all Total score: 0 Depression Screening Interpretation: Negative 07710 - PHQ-9 Billing: Yes Source: Developed by Drs. Benitez Freitas, Chata Betancourt, Paxton Antonio and colleagues, with an educational alma from [email or web address]. Thrive Questionnaire Date Thrive assessed: 06/10/23 I am a: Patient What is your living situation today?: I have a steady place to live Within the past 12 months, did the food you bought not last and you didn't have the money to get more?: Never true Within the past 12 months, did you worry whether your food would run out before you got money to buy more?: Never true Do you have trouble paying for medicines?: No Do you have trouble getting transportation to medical appointments?: No Do you have trouble paying your heating and electricity bill?: No Do you have trouble taking care of your child, family member or friend?: No Do you have trouble with day-to-day activities such as bathing, preparing meals, shopping, managing finances, etc.?: No Are you currently unemployed and looking for a job?: No Are you interested in more education?: No Please select the resources that you would like help with: None Currently or been in a relationship where the following occur: no concerns reported AUDIT C Alcohol Use Questionnaire (AUDIT-C) 1. How often do you have a drink containing alcohol?: Never Total Score: 0 Score Reviewed/Action Taken: Yes ELOINA-7 AMB Questionnaire ELOINA-7 Date ELOINA - 7 assessed: 06/10/23 Feeling nervous, anxious, or on edge: 0 = Not at all Not being able to stop or control worryin = Not at all Worrying too much about different things: 0 = Not at all Trouble relaxin = Not at all Being so restless that it is hard to sit still: 0 = Not at all Becoming easily annoyed or irritable: 0 = Not at all Feeling afraid as if something awful might happen: 0 = Not at all Total ELOINA-7 score (0-4 normal; 5-9 mild; 10-14 moderate; 15-21 severe): 0 Source: Developed by Drs. Benitez Freitas, Chata Betancourt, Paxton Antonio and colleagues, with an educational alma from [email or web address]. ELOINA-7 Assessment Billing ELOINA-7 Assessment Tool: ELOINA-7 Assessment 09809 Review of Systems Const Denies chills, Denies headache(s) and Denies weight loss ENT Denies headache(s) Card Denies chest pain, Denies syncope, Denies irregular heart rhythm and Denies dyspnea Resp Denies chest congestion, Denies cough and Denies dyspnea GI Denies abdominal pain, Denies change in stool character, Denies nausea and Denies vomiting Musc Denies deformity and Denies joint swelling Neuro Denies syncope and Denies headache(s) Physical exam (Primary Care) Vital Signs: Last Vital Signs Pulse 61 06/10/23 12:49 BP 124/86 06/10/23 12:49 Pulse Ox 92 06/10/23 12:49 Oxygen Delivery Method Room Air 06/10/23 12:49 BMI result Body Mass Index 22.9 Tobacco/Smoking Status: Tobacco use Status Tobacco use date assessed 06/10/23 06/10/23 12:56 Patient Tobacco Use Status Former Tobacco user 06/10/23 12:56 Tobacco use type Cigarette 06/10/23 12:56 e-Cigarette/Vaping Use Never Used 06/10/23 12:56 PHQ-9: PHQ-9 Score PHQ-9: Total score 0 06/10/23 13:15 Depression Screening Interpretation: Negative Thrive Assessment: Date of Thrive Assessment Date Thrive assessed 06/10/23 06/10/23 12:56 Currently or been in a relationship where the following occur: no concerns reported Advance Care Planning discussion: On file, no changes Forms completed: Health Care Proxy Const General: cooperative, healthy appearing and no acute distress Orientation/consciousness: oriented to person, oriented to place and oriented to time HENMT Head: Yes normal to inspection, Yes normocephalic and Yes atraumatic Mouth: Normal oral and palatal mucosa present and tongue normal Throat: Yes posterior oropharynx normal and Yes uvula midline Eyes General: appearance normal, both eyes and all related structures Neck Neck: Yes normal visual inspection, Yes full ROM and Yes no lymphadenopathy Thyroid: Thyroid normal Carotids: normal carotid upstroke Chest Chest palpation & inspection: normal inspection of the chest Resp Effort & Inspection: normal respiratory effort and able to speak in complete sentences Auscultation: clear to auscultation bilaterally Cardio Jugular venous distension: no JVD Palpation: normal PMI Rate: regular rate Rhythm: regular rhythm Heart sounds: S1 normal heart sound present and S2 normal heart sound present GI Inspection: Yes normal to inspection Palpation (GI): Soft to palpation and No hepatosplenomegaly present Auscultation: normal bowel sounds General: Yes no CVA tenderness Back/Spine/Pelvis Back: no CVA tenderness Skin General skin exam: no rashes or lesions noted Neuro General: oriented to person, oriented to place and oriented to time Extrem General: Yes normal to inspection and Yes full ROM Assessment and Plan Assessment & Plan (1) Gout: Code(s): M10.9 - Gout, unspecified Plan: stable; same rx (2) Congestive heart failure: Code(s): I50.9 - Heart failure, unspecified Plan: as per cardiology (3) Renal insufficiency syndrome: Code(s): N28.9 - Disorder of kidney and ureter, unspecified Plan: as per renal Coding Level of Care Code Est Pt Level 4 (71503) Diagnoses Gout M10.9 Congestive heart failure I50.9 Renal insufficiency syndrome N28.9 Additional Codes ELOINA-7 Assessment Billing - ELOINA-7 Assessment Tool: ELOINA-7 Assessment 67010 ([id number]) Vital Signs *Quality* - Advance Care Planning discussion: On file, no changes ([id number])
[2023-06-10 12:49] VITALS: BP 124/86; PULSE 61; O2SAT 92; BMI 22.9
== END 2023-06-10 13:23 | disposition home or self-care (01) ==
PROVIDERS: PCP Internal Medicine; Visit Provider Internal Medicine
DX: M10.9 Gout, unspecified (principal); I50.9 Heart failure, unspecified; N28.9 Disorder of kidney and ureter, unspecified; Z00.00 Encounter for general adult medical examination without abnormal findings
CPT/HCPCS: 1123F; 99214

== ENCOUNTER 2023-08-12 12:05 | Outpatient (AMB) | payer MEDICARE, SELFPAY ==
[2023-08-12 12:53] VITALS: BP 116/68; PULSE 60; O2SAT 98; BMI 23.1
--- NOTE | 2023-08-12 12:53 | A.OFFPC_ITS ---
Vital Signs 08/12/23 12:53 Height 6 ft Weight 170 lb BMI 23.1 BP 116/68 Blood Pressure Location Lt brachial Position Sitting Pulse 60 Pulse Source Pulse Oximeter Pulse Oximetry (%) 98 Oxygen Delivery Method Room Air Intake Visit Reasons: 3mth f/u Allergies No Known Allergies [No Known Allergies*] Allergy (Unknown, Verified 08/12/23 12:54) Medication List - Last Reconciled 08/12/23 by Wolfgang Alcala MD albuterol sulfate 90 mcg/actuation (ProAir HFA) 1 puff inhalation QID PRN allopurinol 300 mg PO DAILY amoxicillin 250 mg PO Q8H atorvastatin 40 mg PO DAILY 90 days carvedilol 6.25 mg PO BID hydralazine 50 mg See Protocol PO TID isosorbide dinitrate 10 mg PO TID 90 days latanoprost 0.005% 0 drps ophthalmic (eye) lisinopril 5 mg PO DAILY spironolactone 25 mg PO DAILY tamsulosin 0.4 mg PO DAILY torsemide 40 mg (2 x 20 mg) PO BID Tobacco use date assessed: 06/10/23 Fall risk assessment: No Falls in past year Last assessed Fall Risk: 08/12/23 Dental Screening Dental Screen Date: 08/12/23 Did you have a dental visit in the last 12 months?: No Did you have a dental problem in the last 6 months where you did not have access to dental care?: No Was dental information given to patient?: Patient has dentist HPI 3mth f/u HPI Details gout HTN and asthma; stable; feels well PFSH Medical History Hyperlipidemia Renal insufficiency syndrome Chronic obstructive pulmonary disease, unspecified 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 Father No problems noted. Social History Household Members: None Housing: House Do you presently have visiting nurse or other home services: No Alcohol intake: current Alcohol intake frequency: holidays/special occasions only Patient Tobacco Use Status: Former Tobacco user Tobacco use type: Cigarette e-Cigarette/Vaping Use: Never Used Second Hand Smoke Exposure: No service: No Current occupational status: retired Cognitive needs: No Hearing needs: No Vision needs: Yes (reading glasses) Questionnaire PHQ-9 Over the last 2 weeks, how often have you been bothered by any of the following problems? 1. Little interest or pleasure in doing things: not at all 2. Feeling down, depressed, or hopeless: not at all 3. Trouble falling or staying asleep, or sleeping too much: not at all 4. Feeling tired or having little energy: not at all 5. Poor appetite or overeating: not at all 6. Feeling bad about yourself - or that you are a failure or have let yourself or your family down: not at all 7. Trouble concentrating on things, such as reading the newspaper or watching television: not at all 8. Moving or speaking so slowly that other people could have noticed. Or the opposite - being so fidgety or restless that you have been moving around a lot more than usual: not at all 9. Thoughts that you would be better off or of hurting yourself in some way: not at all Total score: 0 Depression Screening Interpretation: Negative Depression Screening Done: Yes 65559 - PHQ-9 Billing: Yes Source: Developed by Drs. Benitez Freitas, Chata Betancourt, Paxton Antonio and colleagues, with an educational alma from [employer]. Thrive Questionnaire Date Thrive assessed: 06/10/23 AUDIT C Alcohol Use Questionnaire (AUDIT-C) 1. How often do you have a drink containing alcohol?: Never Total Score: 0 Score Reviewed/Action Taken: Yes ELOINA-7 AMB Questionnaire ELOINA-7 Date ELOINA - 7 assessed: 06/10/23 Source: Developed by Drs. Benitez Freitas, Chata Betancourt, Paxton Antonio and colleagues, with an educational alma from [employer]. Review of Systems Const Denies chills, Denies headache(s) and Denies weight loss ENT Denies headache(s) Card Denies chest pain, Denies syncope, Denies irregular heart rhythm and Denies dyspnea Resp Denies chest congestion, Denies cough and Denies dyspnea GI Denies abdominal pain, Denies change in stool character, Denies nausea and Denies vomiting Musc Denies deformity and Denies joint swelling Neuro Denies syncope and Denies headache(s) Physical exam (Primary Care) Vital Signs: Last Vital Signs Pulse 60 08/12/23 12:53 BP 116/68 08/12/23 12:53 Pulse Ox 98 08/12/23 12:53 Oxygen Delivery Method Room Air 08/12/23 12:53 BMI result Body Mass Index 23.1 Tobacco/Smoking Status: Tobacco use Status Tobacco use date assessed 06/10/23 08/12/23 12:59 Patient Tobacco Use Status Former Tobacco user 08/12/23 12:59 Tobacco use type Cigarette 08/12/23 12:59 e-Cigarette/Vaping Use Never Used 08/12/23 12:59 PHQ-9: PHQ-9 Score PHQ-9: Total score 0 08/12/23 12:59 Depression Screening Interpretation: Negative Thrive Assessment: Date of Thrive Assessment Date Thrive assessed 06/10/23 08/12/23 12:59 Const General: cooperative, comfortable, no acute distress and alert Neck Neck: Yes no lymphadenopathy Thyroid: Thyroid normal Resp Effort & Inspection: normal respiratory effort Auscultation: clear to auscultation bilaterally Percussion: percussion normal Cardio Jugular venous distension: no JVD Palpation: normal PMI Rate: regular rate Rhythm: regular rhythm Heart sounds: S1 normal heart sound present and S2 normal heart sound present GI Inspection: Yes normal to inspection Palpation (GI): No hepatosplenomegaly present Skin General skin exam: no rashes or lesions noted Extrem General: Yes no clubbing, cyanosis or edema Assessment and Plan Assessment & Plan (1) Hypertension: Code(s): I10 - Essential (primary) hypertension Plan: stable; same rx (2) Gout: Code(s): M10.9 - Gout, unspecified Plan: stable; same rx (3) Asthma: Code(s): J45.909 - Unspecified asthma, uncomplicated Plan: stable; same rx Coding Level of Care Code Est Pt Level 4 (71106) Diagnoses Hypertension I10 Gout M10.9 Asthma J45.909
== END 2023-08-12 13:10 | disposition home or self-care (01) ==
PROVIDERS: PCP Internal Medicine; Visit Provider Internal Medicine
DX: I10 Essential (primary) hypertension (principal); M10.9 Gout, unspecified; J45.909 Unspecified asthma, uncomplicated
CPT/HCPCS: 99214

== ENCOUNTER 2023-12-15 13:15 | Outpatient (AMB) | payer MEDICARE, SELFPAY ==
--- NOTE | 2023-12-15 13:24 | MHC.PC.OV ---
Vital Signs 12/15/23 13:25 Height 6 ft Weight 174 lb BMI 23.6 BP 142/90 H Blood Pressure Location Lt brachial Position Sitting Pulse 67 Pulse Source Pulse Oximeter Pulse Oximetry (%) 98 Oxygen Delivery Method Room Air Intake Visit Reasons: 4mth f/u Network Associate Required: No Industrial Technologist: Not Required per policy Accompanied by: Self / Same As Patient Allergies No Known Allergies [No Known Allergies*] Allergy (Unknown, Verified 12/15/23 13:25) Tobacco use date assessed: 12/15/23 Fall risk assessment: No Falls in past year Last assessed Fall Risk: 12/15/23 Dental Screening Dental Screen Date: 12/15/23 Did you have a dental visit in the last 12 months?: Yes Did you have a dental problem in the last 6 months where you did not have access to dental care?: No Was dental information given to patient?: Patient has dentist HPI 4mt f/u HPI Details hyperlipidemia gout and copd; stable; chronic dyspnea PFSH Medical History Hyperlipidemia Renal insufficiency syndrome Chronic obstructive pulmonary disease, unspecified Cardiac resynchronization therapy defibrillator (COATING MACHINE FEEDER-D) in place Paroxysmal atrial fibrillation CKD (chronic kidney disease) History of prostate cancer History of COPD Hyperlipidemia Hypertension Pulmonary hypertension Congestive heart failure Atrial fibrillation Surgical History History of surgery on right wrist History of rotator cuff surgery Family History Mother No problems noted. Father No problems noted. Social History Household Members: None Housing: House Do you presently have visiting nurse or other home services: No Alcohol intake: current Alcohol intake frequency: holidays/special occasions only Patient Tobacco Use Status: Former Tobacco user Tobacco use type: Cigarette e-Cigarette/Vaping Use: Never Used Second Hand Smoke Exposure: No service: No Current occupational status: retired Cognitive needs: No Hearing needs: No Vision needs: Yes (reading glasses) Questionnaire PHQ-9 Over the last 2 weeks, how often have you been bothered by any of the following problems? 1. Little interest or pleasure in doing things: not at all 2. Feeling down, depressed, or hopeless: not at all 3. Trouble falling or staying asleep, or sleeping too much: not at all 4. Feeling tired or having little energy: not at all 5. Poor appetite or overeating: not at all 6. Feeling bad about yourself - or that you are a failure or have let yourself or your family down: not at all 7. Trouble concentrating on things, such as reading the newspaper or watching television: not at all 8. Moving or speaking so slowly that other people could have noticed. Or the opposite - being so fidgety or restless that you have been moving around a lot more than usual: not at all 9. Thoughts that you would be better off or of hurting yourself in some way: not at all Total score: 0 Depression Screening Interpretation: Negative Depression Screening Done: Yes 07110 - PHQ-9 Billing: Yes Source: Developed by Drs. Benitez Freitas, Chata Betancourt, Paxton Antonio and colleagues, with an educational alma from [employer]. Thrive Questionnaire Date Thrive assessed: 12/15/23 I am a: Patient What is your living situation today?: I have a steady place to live Within the past 12 months, did the food you bought not last and you didn't have the money to get more?: Never true Within the past 12 months, did you worry whether your food would run out before you got money to buy more?: Never true Do you have trouble paying for medicines?: No Do you have trouble getting transportation to medical appointments?: No Do you have trouble paying your heating and electricity bill?: No Do you have trouble taking care of your child, family member or friend?: No Do you have trouble with day-to-day activities such as bathing, preparing meals, shopping, managing finances, etc.?: No Are you currently unemployed and looking for a job?: No Are you interested in more education?: No Please select the resources that you would like help with: None THRIVE Score: 0 AUDIT C Alcohol Use Questionnaire (AUDIT-C) 1. How often do you have a drink containing alcohol?: Never Total Score: 0 Score Reviewed/Action Taken: Yes ELOINA-7 AMB Questionnaire ELOINA-7 Date ELOINA - 7 assessed: 12/15/23 Feeling nervous, anxious, or on edge: 1 = Several days Not being able to stop or control worryin = Not at all Worrying too much about different things: 0 = Not at all Trouble relaxin = Not at all Being so restless that it is hard to sit still: 0 = Not at all Becoming easily annoyed or irritable: 0 = Not at all Feeling afraid as if something awful might happen: 0 = Not at all Total ELOINA-7 score (0-4 normal; 5-9 mild; 10-14 moderate; 15-21 severe): 1 Source: Developed by Drs. Benitez Freitas, Chata Betancourt, Paxton Antonio and colleagues, with an educational alma from [employer]. ELOINA-7 Assessment Billing ELOINA-7 Assessment Tool: ELOINA-7 Assessment 02184 Review of Systems Const Denies chills, Denies headache(s) and Denies weight loss ENT Denies headache(s) Card Denies chest pain, Denies syncope and Denies irregular heart rhythm Resp Denies chest congestion and Denies cough GI Denies abdominal pain, Denies change in stool character, Denies nausea and Denies vomiting Musc Denies deformity and Denies joint swelling Neuro Denies syncope and Denies headache(s) Physical exam (Primary Care) Vital Signs: Last Vital Signs Pulse 67 12/15/23 13:25 BP 142/90 H 12/15/23 13:25 Pulse Ox 98 12/15/23 13:25 Oxygen Delivery Method Room Air 12/15/23 13:25 BMI result Body Mass Index 23.6 Tobacco/Smoking Status: Tobacco use Status Tobacco use date assessed 12/15/23 12/15/23 13:26 Patient Tobacco Use Status Former Tobacco user 12/15/23 13:26 Tobacco use type Cigarette 12/15/23 13:26 e-Cigarette/Vaping Use Never Used 12/15/23 13:26 PHQ-9: PHQ-9 Score PHQ-9: Total score 0 12/15/23 13:26 Depression Screening Interpretation: Negative Thrive Assessment: Date of Thrive Assessment Date Thrive assessed 12/15/23 12/15/23 13:26 Const General: cooperative, comfortable, no acute distress and alert Neck Neck: Yes no lymphadenopathy Thyroid: Thyroid normal Resp Effort & Inspection: normal respiratory effort Auscultation: clear to auscultation bilaterally Percussion: percussion normal Cardio Jugular venous distension: no JVD Palpation: normal PMI Rate: regular rate Rhythm: regular rhythm Heart sounds: S1 normal heart sound present and S2 normal heart sound present GI Inspection: Yes normal to inspection Palpation (GI): No hepatosplenomegaly present Skin General skin exam: no rashes or lesions noted Extrem General: Yes no clubbing, cyanosis or edema Assessment and Plan Assessment & Plan (1) Gout: Code(s): M10.9 - Gout, unspecified Plan: stable; same rx (2) Hyperlipidemia: Code(s): E78.5 - Hyperlipidemia, unspecified Plan: stable; same rx (3) Asthma: Code(s): J45.909 - Unspecified asthma, uncomplicated Plan: stable; same rx Coding Level of Care Code Est Pt Level 4 (05513) Diagnoses Gout M10.9 Hyperlipidemia E78.5 Asthma J45.909 Additional Codes ELOINA-7 Assessment Billing - ELOINA-7 Assessment Tool: ELOINA-7 Assessment [id number] ([id number])
[2023-12-15 13:25] VITALS: BP 142/90; PULSE 67; O2SAT 98; BMI 23.6
== END 2023-12-15 13:52 | disposition home or self-care (01) ==
PROVIDERS: PCP Internal Medicine; Visit Provider Internal Medicine
DX: M10.9 Gout, unspecified (principal); E78.5 Hyperlipidemia, unspecified; J45.909 Unspecified asthma, uncomplicated
CPT/HCPCS: 99214

== ENCOUNTER 2024-04-17 12:10 | Outpatient (REF) | payer MEDICARE, SELFPAY ==
[2024-04-17 12:19] LABS: MANUAL DIFF FLAG NO
[2024-04-17 12:25] LABS: Basophils Absolute Auto 0.1 X10*3/uL (0.0-0.2); Basophils Percent Auto 1.6 % (0-2); Eosinophils Absolute Auto 0.4 X10*3/uL (0.0-0.4); Eosinophils Percent Auto 11.3 % (0-4); Hemoglobin 11.7 g/dl (14.0-18.0); Lymphocytes Percent Auto 26.4 % (20-40); Mean Corpuscular HGB Conc 30.8 g/dl (31.0-36.0); Mean Corpuscular Hemoglobin 25.7 pg (27.0-33.0); Mean Corpuscular Volume 83.5 fL (80.0-98.0); Mean Platelet Volume 12.3 fL (9.4-12.4); Monocytes Absolute Auto 0.5 X10*3/uL (0.1-1.2); Monocytes Percent Auto 11.8 % (2-11); Neutrophils Absolute Auto 1.9 x10*3/uL (2.0-8.3); Neutrophils Percent Auto 48.9 % (45-73); Platelet Count 144 X10*3/uL (160-400); Red Blood Count 4.55 X10*6/uL (4.60-5.80); Red Cell Distribution Width 17.9 % (11.0-16.0); White Blood Count 3.8 X10*3/uL (4.8-10.8)
[2024-04-17 13:00] LABS: Chloride 108 mmol/L (96-108); Potassium 4.4 mmol/L (3.3-5.1); Sodium 143 mmol/L (135-145)
[2024-04-17 13:01] LABS: Alanine Aminotransferase 11 U/L (0-40); Albumin Level 4.1 g/dL (3.5-5.0); Alkaline Phosphatase 63 U/L (39-117); Anion Gap 12 (12-20); Aspartate Amino Transferase 14 U/L (5-37); Bilirubin Total 0.9 mg/dL (0.0-1.0); Blood Urea Nitrogen 64 mg/dL (9-16); Calcium 9.3 mg/dL (8.4-10.2); Carbon Dioxide 27 mmol/L (22-29); Cholesterol 126 mg/dL (<200); Estimated Glomerular Filt Rate 17; Glucose Fasting 115 mg/dL (60-99); HDL Cholesterol 35 mg/dL (>40); LDL Cholesterol Calculated 75 mg/dL (<100); Triglycerides 83 mg/dL (<150)
== END 2024-04-17 12:11 | disposition home or self-care (01) ==
LOC: HO.LAB 12:10
PROVIDERS: PCP Internal Medicine; Visit Provider Internal Medicine
DX: Z13.0 Encounter for screening for diseases of the blood and blood-forming organs and certain disorders involving the immune mechanism (principal); Z13.220 Encounter for screening for lipoid disorders; Z13.9 Encounter for screening, unspecified
CPT/HCPCS: 36415; 80053; 80061; 85025

== ENCOUNTER 2024-04-17 12:28 | Outpatient (AMB) | payer MEDICARE, SELFPAY ==
[2024-04-17 12:34] VITALS: BP 118/62; PULSE 60; O2SAT 98; BMI 22.9
--- NOTE | 2024-04-17 12:34 | A.OFFPC_ITS ---
Vital Signs 04/17/24 12:34 Height 6 ft Weight 169 lb BMI 22.9 BP 118/62 Blood Pressure Location Lt brachial Position Sitting Pulse 60 Pulse Source Pulse Oximeter Pulse Oximetry (%) 98 Oxygen Delivery Method Room Air Intake Visit Reasons: hdf/hipotension Allergies No Known Allergies [No Known Allergies*] Allergy (Unknown, Verified 12/15/23 13:25) Tobacco use date assessed: 12/15/23 Fall risk assessment: No Falls in past year Last assessed Fall Risk: 04/17/24 Dental Screening Dental Screen Date: 12/15/23 HPI hdf/hipotension HPI Details [place] [facility] [place]ation; sees cardiology; feels well now [facility] Medical History Hyperlipidemia Renal insufficiency syndrome Chronic obstructive pulmonary disease, unspecified Cardiac resynchronization therapy defibrillator (CIRCLE SHEAR OPERATOR-D) in place Paroxysmal atrial fibrillation CKD (chronic kidney disease) History of prostate cancer History of COPD Hyperlipidemia Hypertension Pulmonary hypertension Congestive heart failure Atrial fibrillation Surgical History History of surgery on right wrist History of rotator cuff surgery Family History Mother No problems noted. Father No problems noted. Social History Household Members: None Housing: House Do you presently have visiting nurse or other home services: No Alcohol intake: current Alcohol intake frequency: holidays/special occasions only Patient Tobacco Use Status: Former Tobacco user Tobacco use type: Cigarette e-Cigarette/Vaping Use: Never Used Second Hand Smoke Exposure: No service: No Current occupational status: retired Cognitive needs: No Hearing needs: No Vision needs: Yes (reading glasses) Questionnaire Thrive Questionnaire Date Thrive assessed: 12/15/23 ELOINA-7 AMB Questionnaire ELOINA-7 Date ELOINA - 7 assessed: 12/15/23 Source: Developed by Drs. Benitez Freitas, Chata Betancourt, Paxton Antonio and colleagues, with an educational alma from [employer]. Review of Systems Const Denies chills, Denies headache(s) and Denies weight loss ENT Denies headache(s) Card Denies chest pain, Denies syncope, Denies irregular heart rhythm and Denies dyspnea Resp Denies chest congestion, Denies cough and Denies dyspnea GI Denies abdominal pain, Denies change in stool character, Denies nausea and Denies vomiting Musc Denies deformity and Denies joint swelling Neuro Denies syncope and Denies headache(s) Physical exam (Primary Care) Vital Signs: Last Vital Signs Pulse 60 04/17/24 12:34 BP 118/62 04/17/24 12:34 Pulse Ox 98 04/17/24 12:34 Oxygen Delivery Method Room Air 04/17/24 12:34 BMI result Body Mass Index 22.9 Tobacco/Smoking Status: Tobacco use Status Tobacco use date assessed 12/15/23 04/17/24 12:38 Patient Tobacco Use Status Former Tobacco user 04/17/24 12:38 Tobacco use type Cigarette 04/17/24 12:38 e-Cigarette/Vaping Use Never Used 04/17/24 12:38 Thrive Assessment: Date of Thrive Assessment Date Thrive assessed 12/15/23 04/17/24 12:38 Const General: cooperative, comfortable, no acute distress and alert Neck Neck: Yes no lymphadenopathy Thyroid: Thyroid normal Resp Effort & Inspection: normal respiratory effort Auscultation: clear to auscultation bilaterally Percussion: percussion normal Cardio Jugular venous distension: no JVD Palpation: normal PMI Rate: regular rate Rhythm: regular rhythm Heart sounds: S1 normal heart sound present and S2 normal heart sound present GI Inspection: Yes normal to inspection Palpation (GI): No hepatosplenomegaly present Skin General skin exam: no rashes or lesions noted Extrem General: Yes no clubbing, cyanosis or edema Assessment and Plan Assessment & Plan (1) Congestive heart failure: Code(s): I50.9 - Heart failure, unspecified Plan: stable; per cardiology Coding Level of Care Code Est Pt Level 3 (07505) Diagnoses Congestive heart failure I50.9
== END 2024-04-17 13:39 | disposition home or self-care (01) ==
PROVIDERS: PCP Internal Medicine; Visit Provider Internal Medicine
DX: I50.9 Heart failure, unspecified (principal)
CPT/HCPCS: 99213

== ENCOUNTER 2024-05-15 12:50 | Outpatient (AMB) | payer MEDICARE, SELFPAY ==
--- NOTE | 2024-05-15 13:17 | A.OFFPC_ITS ---
Vital Signs 05/15/24 13:18 Height 6 ft Weight 166 lb 6 oz BMI 22.6 BP 100/60 Blood Pressure Location Lt brachial Position Sitting Pulse 60 Pulse Source Pulse Oximeter Pulse Oximetry (%) 95 Oxygen Delivery Method Room Air Intake Visit Reasons: Annual Exam - see comments Intake Note: Patient is here today for a physical. Food And Beverage Associate Required: No Farmworker Bulbs: Not Required per policy Accompanied by: Self / Same As Patient Allergies No Known Allergies [No Known Allergies*] Allergy (Unknown, Verified 05/15/24 13:18) Medication List - Last Reconciled 05/16/24 by Wolfgang Alcala MD albuterol sulfate 90 mcg/actuation (ProAir HFA) 1 puff inhalation QID PRN allopurinol 300 mg PO DAILY atorvastatin 40 mg PO DAILY 90 days carvedilol 6.25 mg PO BID hydralazine 50 mg PO TID isosorbide dinitrate 10 mg PO TID 90 days latanoprost 0.005% 0 drps ophthalmic (eye) lisinopril 5 mg PO DAILY spironolactone 25 mg PO DAILY tamsulosin 0.4 mg PO DAILY torsemide 40 mg (2 x 20 mg) PO BID Tobacco use date assessed: 05/15/24 Fall risk assessment: No Falls in past year Last assessed Fall Risk: 05/15/24 Dental Screening Dental Screen Date: 12/15/23 HPI Annual Exam - see comments HPI Details HTN Gout and CHF which are all stable; sees cardiology [facility] Medical History Hyperlipidemia Renal insufficiency syndrome Chronic obstructive pulmonary disease, unspecified Cardiac resynchronization therapy defibrillator (TARP REPAIRER-D) in place Paroxysmal atrial fibrillation CKD (chronic kidney disease) History of prostate cancer History of COPD Hyperlipidemia Hypertension Pulmonary hypertension Congestive heart failure Atrial fibrillation Surgical History History of surgery on right wrist History of rotator cuff surgery Family History Mother No problems noted. Father No problems noted. Social History (Updated 05/15/24 @ 13:21 by KELLY Mann) Household Members: None Housing: House Do you presently have visiting nurse or other home services: No Alcohol intake: current Alcohol intake frequency: a few times a month Patient Tobacco Use Status: Former Tobacco user Tobacco use type: Cigarette e-Cigarette/Vaping Use: Never Used Second Hand Smoke Exposure: No service: No Current occupational status: retired Cognitive needs: No Hearing needs: No Vision needs: Yes (reading glasses) Questionnaire Thrive Questionnaire Date Thrive assessed: 12/15/23 ELOINA-7 AMB Questionnaire ELOINA-7 Date ELOINA - 7 assessed: 12/15/23 Source: Developed by Drs. Benitez Freitas, Chata Betancourt, Paxton Antonio and colleagues, with an educational alma from [employer]. Review of Systems Const Denies chills, Denies fatigue, Denies headache(s) and Denies weight loss Eyes Denies change in vision, Denies diplopia and Denies eye pain ENT Denies vertigo, Denies dizziness, Denies headache(s) and Denies nasal discharge Card Denies chest pain, Denies rapid heart rate and Denies dyspnea on exertion Resp Denies chest congestion, Denies cough, Denies pain with cough and Denies dyspnea on exertion GI Denies abdominal pain, Denies hematochezia and Denies change in bowel habits Musc Denies myalgias, Denies arthralgias and Denies joint swelling Skin/Breast Denies lesions and Denies unusual bruising Neuro Denies vertigo, Denies dizziness, Denies headache(s) and Denies focal weakness Endo Denies fatigue Physical exam (Primary Care) Vital Signs: Last Vital Signs Pulse 60 05/15/24 13:18 BP 100/60 05/15/24 13:18 Pulse Ox 95 05/15/24 13:18 Oxygen Delivery Method Room Air 05/15/24 13:18 BMI result Body Mass Index 22.6 Tobacco/Smoking Status: Tobacco use Status Tobacco use date assessed 05/15/24 05/15/24 13:22 Patient Tobacco Use Status Former Tobacco user 05/15/24 13:22 Tobacco use type Cigarette 05/15/24 13:22 e-Cigarette/Vaping Use Never Used 05/15/24 13:22 Thrive Assessment: Date of Thrive Assessment Date Thrive assessed 12/15/23 05/15/24 13:22 Const General: cooperative, healthy appearing and no acute distress Orientation/consciousness: oriented to person, oriented to place and oriented to time HENMT Head: Yes normal to inspection, Yes normocephalic and Yes atraumatic Mouth: Normal oral and palatal mucosa present and tongue normal Throat: Yes posterior oropharynx normal and Yes uvula midline Eyes General: appearance normal, both eyes and all related structures Neck Neck: Yes normal visual inspection, Yes full ROM and Yes no lymphadenopathy Thyroid: Thyroid normal Carotids: normal carotid upstroke Chest Chest palpation & inspection: normal inspection of the chest Resp Effort & Inspection: normal respiratory effort and able to speak in complete sentences Auscultation: clear to auscultation bilaterally Cardio Jugular venous distension: no JVD Palpation: normal PMI Rate: regular rate Rhythm: regular rhythm Heart sounds: S1 normal heart sound present and S2 normal heart sound present GI Inspection: Yes normal to inspection Palpation (GI): Soft to palpation and No hepatosplenomegaly present Auscultation: normal bowel sounds General: Yes no CVA tenderness Back/Spine/Pelvis Back: no CVA tenderness Skin General skin exam: no rashes or lesions noted Neuro General: oriented to person, oriented to place and oriented to time Extrem General: Yes normal to inspection and Yes full ROM Assessment and Plan Assessment & Plan (1) Physical exam: Code(s): Z00.00 - Encounter for general adult medical examination without abnormal findings Plan: stable (2) Gout: Code(s): M10.9 - Gout, unspecified Plan: stable; same rx (3) Hypertension: Code(s): I10 - Essential (primary) hypertension Plan: stable; same rx (4) Congestive heart failure: Code(s): I50.9 - Heart failure, unspecified Plan: as per cardiology Coding Level of Care Code Est Pt Prev Care >65y(15094) Diagnoses Physical exam Z00.00 Gout M10.9 Hypertension I10 Congestive heart failure I50.9
[2024-05-15 13:18] VITALS: BP 100/60; PULSE 60; O2SAT 95; BMI 22.6
== END 2024-05-15 15:37 | disposition home or self-care (01) ==
PROVIDERS: PCP Internal Medicine; Visit Provider Internal Medicine
DX: Z00.00 Encounter for general adult medical examination without abnormal findings (principal); M10.9 Gout, unspecified; I11.0 Hypertensive heart disease with heart failure; I50.9 Heart failure, unspecified
CPT/HCPCS: 99397

== ENCOUNTER 2024-08-15 09:41 | Outpatient (AMB) | payer MEDICARE, SELFPAY ==
[2024-08-15 09:43] VITALS: BP 132/74; PULSE 69; O2SAT 95; BMI 23.3
--- NOTE | 2024-08-15 09:43 | MHC.PC.OV ---
Vital Signs 08/15/24 09:43 Height 6 ft Weight 172 lb BMI 23.3 BP 132/74 Blood Pressure Location Lt brachial Position Sitting Pulse 69 Pulse Source Pulse Oximeter Pulse Oximetry (%) 95 Oxygen Delivery Method Room Air Intake Visit Reasons: Med Review - BP [employer] Injection Servicer Required: No Accompanied by: Self / Same As Patient Allergies No Known Allergies [No Known Allergies*] Allergy (Unknown, Verified 08/15/24 09:45) Medication List - Last Reconciled 08/15/24 by Wolfgang Alcala MD albuterol sulfate 90 mcg/actuation (ProAir HFA) 1 puff inhalation QID PRN allopurinol 300 mg PO DAILY apixaban (Eliquis) 2.5 mg PO BID atorvastatin 40 mg PO DAILY 90 days carvedilol 6.25 mg PO BID hydralazine 50 mg PO TID isosorbide dinitrate 10 mg PO TID 90 days latanoprost 0.005% 0 drps ophthalmic (eye) lisinopril 5 mg PO DAILY spironolactone 25 mg PO DAILY tamsulosin 0.4 mg PO DAILY torsemide 40 mg (2 x 20 mg) PO BID zolpidem (Ambien) 5 mg PO BEDTIME PRN Tobacco use date assessed: 05/15/24 Fall risk assessment: No Falls in past year Last assessed Fall Risk: 08/15/24 Dental Screening Dental Screen Date: 12/15/23 HPI Med Review - BP HPI Details hyperlipidemia on rx; doing well and compliant [facility] Medical History Hyperlipidemia Renal insufficiency syndrome Chronic obstructive pulmonary disease, unspecified Cardiac resynchronization therapy defibrillator (MATERIALS HANDLING COORDINATOR-D) in place Paroxysmal atrial fibrillation CKD (chronic kidney disease) History of prostate cancer History of COPD Hyperlipidemia Hypertension Pulmonary hypertension Congestive heart failure Atrial fibrillation Surgical History History of surgery on right wrist History of rotator cuff surgery Family History Mother No problems noted. Father No problems noted. Social History (Updated 05/15/24 @ 13:21 by KELLY Mann) Household Members: None Housing: House Do you presently have visiting nurse or other home services: No Alcohol intake: current Alcohol intake frequency: a few times a month Patient Tobacco Use Status: Former Tobacco user Tobacco use type: Cigarette e-Cigarette/Vaping Use: Never Used Second Hand Smoke Exposure: No service: No Current occupational status: retired Cognitive needs: No Hearing needs: No Vision needs: Yes (reading glasses) Questionnaire PHQ-9 Over the last 2 weeks, how often have you been bothered by any of the following problems? 1. Little interest or pleasure in doing things: not at all 2. Feeling down, depressed, or hopeless: not at all 3. Trouble falling or staying asleep, or sleeping too much: not at all 4. Feeling tired or having little energy: not at all 5. Poor appetite or overeating: not at all 6. Feeling bad about yourself - or that you are a failure or have let yourself or your family down: not at all 7. Trouble concentrating on things, such as reading the newspaper or watching television: not at all 8. Moving or speaking so slowly that other people could have noticed. Or the opposite - being so fidgety or restless that you have been moving around a lot more than usual: not at all 9. Thoughts that you would be better off or of hurting yourself in some way: not at all Total score: 0 Depression Screening Interpretation: Negative Depression Screening Done: Yes 56064 - PHQ-9 Billing: Yes Source: Developed by Drs. Benitez Freitas, Chata Betancourt, Paxton Antonio and colleagues, with an educational alma from [employer]. Thrive Questionnaire Date Thrive assessed: 12/15/23 Are you currently unemployed and looking for a job?: Yes AUDIT C Alcohol Use Questionnaire (AUDIT-C) 1. How often do you have a drink containing alcohol?: Never Total Score: 0 Score Reviewed/Action Taken: Yes ELOINA-7 AMB Questionnaire ELOINA-7 Date ELOINA - 7 assessed: 12/15/23 Source: Developed by Drs. Benitez Freitas, Paxton Hurtado and colleagues, with an educational alma from [employer]. Review of Systems Const Denies chills, Denies headache(s) and Denies weight loss ENT Denies headache(s) Card Denies chest pain, Denies syncope, Denies irregular heart rhythm and Denies dyspnea Resp Denies chest congestion, Denies cough and Denies dyspnea GI Denies abdominal pain, Denies change in stool character, Denies nausea and Denies vomiting Musc Denies deformity and Denies joint swelling Neuro Denies syncope and Denies headache(s) Physical exam (Primary Care) Vital Signs: Last Vital Signs Pulse 69 08/15/24 09:43 BP 132/74 08/15/24 09:43 Pulse Ox 95 08/15/24 09:43 Oxygen Delivery Method Room Air 08/15/24 09:43 BMI result Body Mass Index 23.3 Tobacco/Smoking Status: Tobacco use Status Tobacco use date assessed 05/15/24 08/15/24 09:49 Patient Tobacco Use Status Former Tobacco user 08/15/24 09:49 Tobacco use type Cigarette 08/15/24 09:49 e-Cigarette/Vaping Use Never Used 08/15/24 09:49 PHQ-9: PHQ-9 Score PHQ-9: Total score 0 08/15/24 09:49 Depression Screening Interpretation: Negative Thrive Assessment: Date of Thrive Assessment Date Thrive assessed 12/15/23 08/15/24 09:49 Const General: cooperative, comfortable, no acute distress and alert Neck Neck: Yes no lymphadenopathy Thyroid: Thyroid normal Resp Effort & Inspection: normal respiratory effort Auscultation: clear to auscultation bilaterally Percussion: percussion normal Cardio Jugular venous distension: no JVD Palpation: normal PMI Rate: regular rate Rhythm: regular rhythm Heart sounds: S1 normal heart sound present and S2 normal heart sound present GI Inspection: Yes normal to inspection Palpation (GI): No hepatosplenomegaly present Skin General skin exam: no rashes or lesions noted Extrem General: Yes no clubbing, cyanosis or edema Coding Level of Care Code Est Pt Level 3 (58186) Diagnoses Hypertension I10 Assessment & Plan Assessment & Plan (1) Hypertension: Code(s): I10 - Essential (primary) hypertension Category: Medical Plan: stable; same rx
== END 2024-08-15 10:16 | disposition home or self-care (01) ==
PROVIDERS: PCP Internal Medicine; Visit Provider Internal Medicine
DX: I10 Essential (primary) hypertension (principal)

== ENCOUNTER → 2024-08-15 09:41 | Outpatient (BNVA) | payer MEDICARE, SELFPAY | PROVIDERS: PCP Internal Medicine; Visit Provider Internal Medicine | DX: I10 Essential (primary) hypertension (principal) | CPT/HCPCS: 96127; 99212 ==

== ENCOUNTER 2024-09-05 09:34 | Outpatient (AMB) | payer MEDICARE, SELFPAY ==
[2024-09-05 09:50] VITALS: BP 132/60; PULSE 60; O2SAT 98; BMI 22.9
--- NOTE | 2024-09-05 09:50 | MHC.PC.OV ---
Vital Signs 09/05/24 09:50 Height 6 ft Weight 169 lb BMI 22.9 BP 132/60 Blood Pressure Location Lt brachial Position Sitting Pulse 60 Pulse Source Pulse Oximeter Pulse Oximetry (%) 98 Oxygen Delivery Method Room Air Intake Visit Reasons: [facility] [place] 08/30 Congestion/Heart failure Personnel Psychologist Required: No Accompanied by: Self / Same As Patient Allergies No Known Allergies [No Known Allergies*] Allergy (Unknown, Verified 09/05/24 09:50) Medication List - Last Reconciled 09/05/24 by Wolfgang Alcala MD albuterol sulfate 90 mcg/actuation (ProAir HFA) 1 puff inhalation QID PRN allopurinol 300 mg PO DAILY apixaban (Eliquis) 2.5 mg PO BID atorvastatin 40 mg PO DAILY 90 days carvedilol 6.25 mg PO BID hydralazine 50 mg PO TID isosorbide dinitrate 10 mg PO TID 90 days latanoprost 0.005% 0 drps ophthalmic (eye) lisinopril 5 mg PO DAILY spironolactone 25 mg PO DAILY tamsulosin 0.4 mg PO DAILY torsemide 40 mg (2 x 20 mg) PO BID zolpidem (Ambien) 5 mg PO BEDTIME PRN Tobacco use date assessed: 05/15/24 Fall risk assessment: No Falls in past year Last assessed Fall Risk: 09/05/24 Dental Screening Dental Screen Date: 12/15/23 HPI [facility] [place] 08/30 Congestion/Heart failure HPI Details admitted with chr; having insomnia PFSH Medical History Hyperlipidemia Renal insufficiency syndrome Chronic obstructive pulmonary disease, unspecified Cardiac resynchronization therapy defibrillator (WARP HAULER-D) in place Paroxysmal atrial fibrillation CKD (chronic kidney disease) History of prostate cancer History of COPD Hyperlipidemia Hypertension Pulmonary hypertension Congestive heart failure Atrial fibrillation Surgical History History of surgery on right wrist History of rotator cuff surgery Family History Mother No problems noted. Father No problems noted. Social History (Updated 05/15/24 @ 13:21 by KELLY Mann) Household Members: None Housing: House Do you presently have visiting nurse or other home services: No Alcohol intake: current Alcohol intake frequency: a few times a month Patient Tobacco Use Status: Former Tobacco user Tobacco use type: Cigarette e-Cigarette/Vaping Use: Never Used Second Hand Smoke Exposure: No service: No Current occupational status: retired Cognitive needs: No Hearing needs: No Vision needs: Yes (reading glasses) Questionnaire Thrive Questionnaire Date Thrive assessed: 12/15/23 Are you currently unemployed and looking for a job?: Yes ELOINA-7 AMB Questionnaire ELOINA-7 Date ELOINA - 7 assessed: 12/15/23 Source: Developed by Drs. Benitez Freitas, Chata Betancourt, Paxton Antonio and colleagues, with an educational alma from [employer]. Review of Systems Const Denies chills, Denies headache(s) and Denies weight loss ENT Denies headache(s) Card Denies chest pain, Denies syncope, Denies irregular heart rhythm and Denies dyspnea Resp Denies chest congestion, Denies cough and Denies dyspnea GI Denies abdominal pain, Denies change in stool character, Denies nausea and Denies vomiting Musc Denies deformity and Denies joint swelling Neuro Denies syncope and Denies headache(s) Physical exam (Primary Care) Vital Signs: Last Vital Signs Pulse 60 09/05/24 09:50 BP 132/60 09/05/24 09:50 Pulse Ox 98 09/05/24 09:50 Oxygen Delivery Method Room Air 09/05/24 09:50 BMI result Body Mass Index 22.9 Tobacco/Smoking Status: Tobacco use Status Tobacco use date assessed 05/15/24 09/05/24 09:55 Patient Tobacco Use Status Former Tobacco user 09/05/24 09:55 Tobacco use type Cigarette 09/05/24 09:55 e-Cigarette/Vaping Use Never Used 09/05/24 09:55 Thrive Assessment: Date of Thrive Assessment Date Thrive assessed 12/15/23 09/05/24 09:55 Const General: cooperative, comfortable, no acute distress and alert Neck Neck: Yes no lymphadenopathy Thyroid: Thyroid normal Resp Effort & Inspection: normal respiratory effort Auscultation: clear to auscultation bilaterally Percussion: percussion normal Cardio Jugular venous distension: no JVD Palpation: normal PMI Rate: regular rate Rhythm: regular rhythm Heart sounds: S1 normal heart sound present and S2 normal heart sound present GI Inspection: Yes normal to inspection Palpation (GI): No hepatosplenomegaly present Skin General skin exam: no rashes or lesions noted Extrem General: Yes no clubbing, cyanosis or edema Coding Level of Care Code Est Pt Level 3 (06271) Diagnoses Congestive heart failure I50.9 Assessment & Plan Assessment & Plan (1) Congestive heart failure: Code(s): I50.9 - Heart failure, unspecified Category: Medical Plan: stable; per cardiology Medications: New trazodone 100 mg PO BEDTIME PRN 30 tabs 4RF sleep
== END 2024-09-05 10:12 | disposition home or self-care (01) ==
LOC: HO.HMCH 09:34
PROVIDERS: PCP Internal Medicine; Visit Provider Internal Medicine
DX: I50.9 Heart failure, unspecified (principal)

== ENCOUNTER → 2024-09-05 09:34 | Outpatient (BNVA) | payer MEDICARE, SELFPAY | PROVIDERS: PCP Internal Medicine; Visit Provider Internal Medicine | DX: I50.9 Heart failure, unspecified (principal); Z79.899 Other long term (current) drug therapy | CPT/HCPCS: 99212 ==

== ENCOUNTER 2024-11-08 09:31 | Outpatient (AMB) | payer MEDICARE, SELFPAY ==
--- OUTSIDE RECORDS SUMMARY | 2024-11-08 09:34 | XMS_ITS | Continuity of Care Document ---
Author Organization [facility] ter Address [address] [place] [address]- Care Team Providers Care Apparel Pattern Maker Name Role Phone Wolfgang Alcala MD Primary Care Physician [id number] Date(s): 10/03/24 - 11/02/24 [facility] [address] [place] [id number] Encounter Diagnosis Heart failure, unspecified(Final) - Chronic systolic (congestive) heart failure(Final) - Discharge Disposition: A-D/C Home Attending Physician: Edward Benton MD Admitting Physician: Edward Benton MD Referring Physician: Edward Benton MD Encounter Type: Disch Recurring OP Allergies, Adverse Reactions, Alerts No Known Allergies Immunizations Given and Recorded Vaccine Date Status Refusal Reason pneumococcal 13-valent vaccine 08/30/19 Given influenza virus vaccine, inactivated 08/30/19 Give n Medications acetaminophen 325 mg oral tablet 650 mg, By Mouth, Every 6 hours, PRN, Temperature Greater than 100.5, # 30 tablet, Refills 0, Tot. Refills 0, Maintenance, Pain , Mild, 06/20/22 12:02:00 PM EDT, Route to Pharmacy Electronically, [facility] ([facility]), Partial fill upon patient request if the prescription is fora schedule II opioid drug., 183, cm, 06/20/22 8:16:00 EDT, Height, 78.6, kg, 06/19/22 18:49:00 EDT,Dry Weight Start Date: 06/20/22 Status: Ordered Quantity: 30.0 Unit: tablet Repeat number: 1 amiodarone 200 mg oral tablet 200 mg, 1, tablet, By Mouth, Daily, # 90 tablet, Refills 3, Tot. Refills 3, Maintenance, 10/04/24 11:17:00 AM EST, Route to Pharmacy Electronically, [facility], Partial fill upon patient request if the prescription is for a schedule II opioid drug., 181, cm, 10/04/24 10:42:00 EST, Height, 78.4, kg, 08/26/24 19:54:00 EDT, Dry Weight Start Date: 10/04/24 Status: Ordered Quantity: 90.0 Unit: tablet Repeat number: 4 amLODIPine 5 mg oral tablet 1 tablet = 5 mg, By Mouth, Daily, # 90 tablet, 0 Refills, Maintenance, 10/27/24 1:03:00 PM EST, Tablet, [facility], Partial fill upon patient request if the prescription is for a schedule II opioid drug., 181, cm, 10/23/24 15:32:00 EST, Height, 78.4, kg, 08/26/24 19:54:00 EDT, Dry Weight Start Date: 10/27/24 Status: Ordered Quantity: 90.0 Unit: tablet Repeat number: 1 atorvastatin 40 mg oral tablet 1 tablet = 40 mg, By Mouth, Daily at bedtime, # 30 tablet, 3 Refills, Maintenance, Tablet, Route toPharmacy Electronically, [id number], [facility] 1967 Start Date: 07/29/18 Stop Date: 11/26/18 Status: Ordered Quantity: 30.0 Unit: tablet Repeat number: 4 carvedilol 6.25 mg oral tablet 1, tablet, By Mouth, 2 times a day, # 200 tablet, Refills 2, Maintenance, 06/16/24 7:14:00 AM EDT, Route to Pharmacy Electronically, [facility], 180, cm, 06/15/24 15:00:00 EDT, Height, 75.8, kg, 06/04/24 20:28:00 EDT, Dry Weight Start Date: 06/16/24 Status: Ordered Quantity: 200.0 Unit: tablet Repeat number: 1 Eliquis 2.5 mg oral tablet 1 tablet, By Mouth, 2 times a day, # 60 tablet, 11 Refills, Maintenance, 08/14/24 1:35:00 PM EDT, [facility], 180, cm, 07/06/24 8:17:00 EDT, Height, 77, kg, 07/05/24 10:17:00 EDT, Dry Weight Start Date: 08/14/24 Status: Ordered Quantity: 60.0 Unit: tablet Repeat number: 1 Farxiga 5 mg oral tablet 1 tablet = 5 mg, By Mouth, Daily, if in need of prior auth, please contact patient's PCP and/or primary visual merchandising manager., # 90 tablet, 3 Refills, Maintenance, 10/04/24 11:18:00 AM EST, Tablet, [facility], Partial fill upon patient request if the prescription is for a schedule II opioid drug. if in need of prior auth, please contact patient's PCP and/or primary visual merchandising manager., 181, cm, 10/04/24 10:42:00 EST, Height, 78.4, kg, 08/26/24 19:54:00 EDT, Dry Weight Start Date: 10/04/24 Status: Ordered Quantity: 90.0 Unit: tablet Repeat number: 4 hydrALAZINE 50 mg oral tablet 1 tablet = 50 mg, By Mouth, 3 times a day, # 270 tablet, 1 Refills, Maintenance, 12/31/23 4:13:00 PM EST, Tablet, [facility], Partial fill upon patient request if the prescription is for a schedule II opioid drug., 183, cm, 09/02/23 14:40:00 EDT, Height, 78.6, kg, 06/19/22 18:49:00 EDT, Dry Weight Start Date: 12/31/23 Stop Date: 06/28/24 Status: Ordered Quantity: 270.0 Unit: tablet Repeat number: 2 isosorbide dinitrate 10 mg oral tablet 2, tablet, By Mouth, 2 times a day, # 400 tablet, Refills 3, Tot. Refills 3, Maintenance, 07/04/24 8:02:00 AM EDT, Route to Pharmacy Electronically, [facility], 180, cm, 06/15/24 15:00:00 EDT,Height, 75.8, kg, 06/04/24 20:28:00 EDT, Dry Weight Start Date: 07/04/24 Stop Date: 08/08/25 Status: Ordered Quantity: 400.0 Unit: tablet Repeat number: 4 latanoprost 0.005% ophthalmic solution 1 drops, Eyes, Both, Daily at bedtime, Maintenance, 11/11/21 2:54:00 PM EST, Ophth Solution, Partialfill upon patient request if the prescription is for a schedule II opioid drug. Start Date: 11/11/21 Status: Ordered Repeat number: 1 ProAir HFA 90 mcg/inh inhalation aerosol 1 puffs, Inhalation, 4 times a day, PRN as needed for wheezing, Maintenance, 11/11/21 2:50:00 PM EST, Aerosol, Partial fill upon patient request if the prescription is for a schedule II opioid drug. Start Date: 11/11/21 Status: Ordered Repeat number: 1 tamsulosin 0.4 mg oral capsule 0.4 mg, By Mouth, Daily, # 30 tablet, Refills 2, Tot. Refills 2, Maintenance, 07/29/18 1:22:37 PM EDT, Route to Pharmacy Electronically, [facility] 3 Start Date: 07/29/18 Stop Date: 10/27/18 Status: Ordered Quantity: 30.0 Unit: tablet Repeat number: 3 torsemide 20 mg oral tablet 1 tablet = 20 mg, By Mouth, 2 times a day, # 180 tablet, 4 Refills, Maintenance, 03/08/24 11:42:00 AMEDT, [facility], Dose decrease from 60mg twice daily, 180, cm, 03/08/24 11:16:00 EDT, Height, 78.7, kg, 02/22/24 6:41:00 EDT, Dry Weight Start Date: 03/08/24 Stop Date: 06/01/25 Status: Ordered Quantity: 180.0 Unit: tablet Repeat number: 5 zolpidem 5 mg oral tablet 1 tablet = 5 mg, By Mouth, Daily at bedtime, PRN as needed for sleep, 0 Refills, Maintenance, 03/13/22 11:10:00 PM EDT, Partial fill upon patient request if the prescription is for a schedule II opioid drug. Start Date: 03/13/22 Status: Ordered Repeat number: 1 Problem List Condition Confirmation Course Effective Dates Status Health Status Informant Cardiac resynchronization therapy defibrillator (PRINTING PRESSMAN-D) in place Confirmed Active Nonischemic cardiomyopathy Confirmed Active COPD (chronic obstructive pulmonary disease) Confirmed Active CKD stage 4 Confirmed Active Complete heart block Confirmed Active Acute exacerbation of CHF (congestive heart failure) Confirmed Active CAD in [place] artery Confirmed Active Gout Confirmed Active Heart failure with reduced ejection fraction Confirmed Active HLD (hyperlipidemia) Confirmed Active HTN (hypertension) Confirmed Active Left bundle branch block Confirmed Active Prostate cancer s/p Radiotherapy Confirmed Active Paroxysmal atrial fibrillation Confirmed Active Social History Social History Type Response Smoking Status Former smoker; Tobac co user in household: No; Other: quit smoking 1984; entered on: 01/28/16 Sex Sex Representation Male (finding) Note * Karley Gillespie: PERFORM, MODIFY, MODIFY, MODIFY, MODIFY, SIGN, VERIFY Pack Edward FROST: SIGN, MODIFY Edward Benton MD: MODIFY Event Display: Cardiac Rehab Note Authored Date: Patient: VERONICA JOHNSON Age: 84 years Sex: Male : 1940 Associated Diagnoses: None Author: Karley Gillespie Initial Assessment Diagnosis: HF/LBBB/BIV ICD 2016 EF: 20-25% Date of Event: 08/26/2024 HPI: 83-year-old male k/c of nonischemic cardiomyopathy, HFrEF (EF 20 to 25% on echo in 2021), hypertension, complete heart block s/p pacemaker, A-fib (on Eliquis) COPD, CKD, history of prostate cancer s/p radiotherapy, hyperlipidemia presented to ED on 08/26/24 with shortness of breath. Cardiac cath on 07/27/2018 showed nonobstructive coronary disease. Other Medical Conditions/Comorbidities/Surgeries: Heart failure with reduced ejection fraction 2. Nonischemic cardiomyopathy 3. Paroxysmal atrial fibrillation 4. Cardiac resynchronization therapy defibrillator (PRINTING PRESSMAN-D) in place 5. Complete heart block 6. CKD stage 4 7. COPD (chronic obstructive pulmonary disease) 8. Prostate cancer s/p Radiotherapy CHF (congestive heart failure) Cardiac Risk Factors: HTN, HLD Armament Aircraft Mechanic: Dr. Denis PCP: Dr. Alcala Med Rec Complete: yes Med Compliant: yes Beta Jose: yes Allergies: na Sternal Click: na Incisions C/D/I: na Pain: 0/10 Fall in Past 6 Months? no Physical Limitations: none Cardiac Rhythm: Paced rhythm Lung Sounds: CTA Edema : trace Diabetes: na Type: _ Insulin: _ FBS: _ Risk Stratification: High risk Non-Adherence Score: 4 Advanced Directive: yes DNR: _ MOLST: _ In CIS: yes Adv Dir Form Given: _ Other/Notes: _ Plan: Veronica has been enrolled into our medically supervised exercise program. Veronica will attend cardiac rehab classes 2-3x/wk up to 36 sessions. Veronica's exercise prescription with be individualized for their current fitness level and will be progressive to assist in reaching their exercise goals such as increasing his strength and endurance. Veronica tolerated 15-20 mins of exercise today with a peak MET level of 2.0. BP and HR were stable at rest and with exercise. I also encouraged Veronica to begin a home exercise program to include walking 3-5 days/wk for at least 30 mins. 1. Veronica reports a history of HTN/HLD. Veronica is taking all of their medications as prescribed. I encouraged attendance at our weekly educational lectures on various heart healthy topics. We will monitor BP at rest and with exercise at each session and report any issues to their visual merchandising manager. 2. Veronica will be scheduled to meet with our Police Pilot for heart healthy nutritional education. They will have the opportunity to attend our weekly educational lectures on various heart healthy topics, monthly cooking demonstrations. We will encourage a low sodium diet and to maintain his weight while in our program. Initial Exercise Prescription: Frequency: 2x a week Intensity (Initial MET Level/RPE): 2.0 Types of Exercise: Treadmill, Nustep, and Rec bike Time of Exercise: 36 min Resistance Training: _ Progression: 40% Increase from 3rd session MET level We look forward to working with Veronica. Please contact us at [phone] if you have any questions or concerns. Thank you Time spent with patient: 92 min Report sent to all consultants: Cari FROST, Wolfgang Williamson. Report sent to all consultants: Vinod Denis DO. * Serenity FROST, Edward Mccall: PERFORM Event Display: Cardiac Rehab Note Authored Date: I have reviewed the patient's history, physical exam, and medications and agree with the treatment plan and exercise prescription as outlined in cardiac rehabilitation staff members note. * Event Display: Cardiac Rehab Telemetry Report Authored Date: Patient Care team information Care Team Personnel Name: Constance Albarran RN Position: [facility] RN Member Role: Primary Care Nurse Name: Shakila Blanco RN Position: [facility] RN Member Role: Primary Care Nurse Name: Bethany Eli Position: [facility] RN Supv Member Role: Primary Care Nurse Name: Sruthi Gorman RN Position: [facility] AMB Nurse Member Role: Primary Care Nurse Name: Barbara Putnam RN Position: S RN Member Role: Primary Care Nurse Name: Yeison Lucas RN Position: [facility] RN Member Role: Primary Care Nurse Name: Tanisha Anderson NP Position: [facility] Associate Professional Member Role: Lifetime Consulting Provider Address: [address] [place], [place] [address] [place], [place] [address] Telecom: Name: Wolfgang Alcala MD Position: Reference Physician Member Role: PCP Address: [address] [place] [address] [place] Telecom: Name: Luis Quintanilla DO Position: [facility] Renal MD Member Role: Lifetime Consulting Physician Address: [address] [place], [place] [address] [place] [address]- [place] Telecom: Name: Radha Huizar RN Position: [facility] RN Member Role: Primary Care Nurse Name: Tiffani Pérez RN Position: [facility] RN Member Role: Primary Care Nurse Name: Agatha Galvin RN Position: [facility] RN Member Role: Primary Care Nurse Name: Lizzy Gaffney RN Position: [facility] RN Member Role: Primary Care Nurse Name: Bonnie Pierre Position: [facility] RN Member Role: Primary Care Nurse Name: Nilam John RN Position: [facility] RN Member Role: Primary Care Nurse Name: Rosalina Goel NP Position: Reference Physician Member Role: Primary Care Nurse Address: [place] [address]- [place] Telecom: Name: Blanca Higginbotham RN Position: [facility] RN Member Role: Primary Care Nurse Name: Agatha Perez RN Position: [facility] RN Member Role: Primary Care Nurse Care Team Related Persons Name: FRANCHESCA JOHNSON Name: JAIR JOHNSON Name: ELBA HOWARDA Name: HOWARDMICHAELSA Name: NO, ONE Insurance Providers Guarantor name: VERONICA JOHNSON Health [facility] Information #: 1 Payer: ALKA BETH NEWBY ADV Member Number: [id number] Policy Number: NA Group Number: [id number] Health Plan Information #: 2 Payer: [facility] PPO [place] ADV Member Number: [id number] Policy Number: NA Group Number: NA
--- OUTSIDE RECORDS SUMMARY | 2024-11-08 09:34 | XMS_ITS | Continuity of Care Document ---
Author Organization [facility] Address [address] [place] [address]- Care Team Providers Care Women Specialist Name Role Phone Cari FROST, Wolfgang Williamson Primary Care Physician [id number] Date(s): 10/05/24 - 11/04/24 [facility] [address] [place] [address]- Encounter Type: Triage Allergies, Adverse Reactions, Alerts No Known Allergies [...] 12:02:00 PM EDT, Route to Pharmacy Electronically, [email or web address]), Partial fill upon patient request [...] Refills, Maintenance, 10/27/24 1:03:00 PM EST, Tablet, [facility] 1967, Partial fill upon patient [...] 3 Refills, Maintenance, Tablet, Route toPharmacy Electronically, [id number], [facility] 1967 Start Date: 07/29/18 Stop [...] 11 Refills, Maintenance, 08/14/24 1:35:00 PM EDT, [facility], 180, cm, 07/06/24 8:17:00 EDT, Height, 77, kg, 07/05/24 10:17:00 EDT, Dry Weight Start Date: 08/14/24 Status: Ordered Quantity: 60.0 Unit: tablet Repeat number: 1 Farxiga 5 mg oral tablet 1 tablet = 5 mg, By Mouth, Daily, if in need of prior auth, please contact patient's PCP and/or primary porter baggage., # 90 tablet, 3 Refills, Maintenance, 10/04/24 11:18:00 AM EST, Tablet, [facility], Partial fill upon patient request if the prescription is for a schedule II opioid drug. if in need of prior auth, please contact patient's PCP and/or primary porter baggage., 181, cm, 10/04/24 10:42:00 EST, Height, 78.4, [...] 1:22:37 PM EDT, Route to Pharmacy Electronically, [facility] 3 Start Date: 07/29/18 Stop Date: 10/27/18 [...] Health Status Informant Cardiac resynchronization therapy defibrillator (DIRECTOR OF PLAYER PERSONNEL-D) in place Confirmed Active Nonischemic cardiomyopathy Confirmed Active COPD (chronic obstructive pulmonary disease) Confirmed Active CKD stage 4 Confirmed Active Complete heart block Confirmed Active Acute exacerbation of CHF (congestive heart failure) Confirmed Active CAD in [place] artery Confirmed Active Gout Confirmed Active Heart [...] on: 01/28/16 Sex Sex Representation Male (finding) Patient Care team information Care Team Personnel Name: Constance Albarran RN Position: [facility] RN Member Role: Primary Care Nurse Name: Shakila Blanco RN Position: [facility] RN Member Role: Primary Care Nurse Name: Bethany Eli Position: [facility] RN Supv Member Role: Primary Care Nurse Name: Sruthi Gorman RN Position: [facility] AMB Nurse Member Role: Primary Care Nurse Name: Barbara Putnam RN Position: [facility] RN Member Role: Primary Care Nurse Name: Yeison Lucas RN Position: [facility] RN Member Role: Primary Care Nurse Name: Tanisha Anderson NP Position: [facility] Associate Professional Member Role: Lifetime Consulting Provider Address: [address] [place], [place] [address] [address] Telecom: Name: Wolfgang Alcala MD Position: Reference Physician Member Role: PCP Address: [address] [place] [id number] Telecom: Name: Luis Quintanilla DO Position: [facility] Renal MD Member Role: Lifetime Consulting Physician Address: [address] [place], [place] [address] [place], [place] [address] Telecom: Name: Radha Huizar RN Position: [facility] RN Member Role: Primary Care Nurse Name: Tiffani Pérez RN Position: [facility] RN Member Role: Primary Care Nurse Name: Agatha Galvin RN Position: [facility] RN Member Role: Primary Care Nurse Name: Lizzy Gaffney RN Position: [facility] RN Member Role: Primary Care Nurse Name: Bonnie Pierre Position: [facility] RN Member Role: Primary Care Nurse Name: Nilam John RN Position: S RN Member Role: Primary Care Nurse Name: Rosalina Goel NP Position: Reference Physician Member Role: Primary Care Nurse Address: [address] [place] [address]- [place] Telecom: Name: Blanca Higginbotham RN Position: S RN Member Role: Primary Care Nurse Name: Agatha Perez RN Position: S RN Member Role: Primary Care Nurse Care Team Related Persons Name: FRANCHESCA JOHNSON Name: JAIR JOHNSON Name: HOWARD TIANA Name: NILAM HOWARD Name: NO, ONE Insurance Providers Guarantor name: [facility] Information #: 1 Payer: [employer] JAVED Member Number: NA Policy Number: NA Group Number: NA
--- OUTSIDE RECORDS SUMMARY | 2024-11-08 09:34 | XMS_ITS | Continuity of Care Document ---
Author Organization [facility] Address [address] [place] [address]- Care Team Providers Care Courtroom Deputy Name Role Phone Cari FROST, Wolfgang Williamson Primary Care Phys[id number] Date(s): 09/14/24 - 10/14/24 [facility] [address] [place] [address]- Attending Physician: Miguelangel Gonzalez NP Admitting Physician: Miguelangel Gonzalez NP Encounter Type: Pre-OutPatient One Time Allergies, Adverse Reactions, Alerts No Known Allergies [...] 12:02:00 PM EDT, Route to Pharmacy Electronically, [facility]), Partial fill upon patient request [...] = 5 mg, By Mouth, Daily, # 30 tablet, 0 Refills, Maintenance, 08/30/24 11:33:00 AM EDT, Tablet, [facility] 1967, Partial fill upon patient request if the prescription is for a scheduleII opioid drug., 181, cm, 08/30/24 8:29:00 EDT, Height, 78.4, kg, 08/26/24 19:54:00 EDT, Dry Weight Start Date: 08/30/24 Status: Ordered Quantity: 30.0 Unit: tablet Repeat number: 1 atorvastatin 40 mg oral tablet 1 tablet = 40 mg, By Mouth, Daily at bedtime, # 30 tablet, 3 Refills, Maintenance, Tablet, Route toPharmacy Electronically, [id number], [facility] 1967 Start Date: 07/29/18 Stop [...] 11 Refills, Maintenance, 08/14/24 1:35:00 PM EDT, [facility], 180, cm, 07/06/24 8:17:00 EDT, Height, 77, kg, 07/05/24 10:17:00 EDT, Dry Weight Start Date: 08/14/24 Status: Ordered Quantity: 60.0 Unit: tablet Repeat number: 1 Farxiga 5 mg oral tablet 1 tablet = 5 mg, By Mouth, Daily, if in need of prior auth, please contact patient's PCP and/or primary grapple skidder operator., # 90 tablet, 3 Refills, Maintenance, 10/04/24 11:18:00 AM EST, Tablet, [facility], Partial fill upon patient request if the prescription is for a schedule II opioid drug. if in need of prior auth, please contact patient's PCP and/or primary grapple skidder operator., 181, cm, 10/04/24 10:42:00 EST, Height, 78.4, [...] 1:22:37 PM EDT, Route to Pharmacy Electronically, [facility] 3 Start Date: 07/29/18 Stop Date: [...] Health Status Informant Cardiac resynchronization therapy defibrillator (FLASK CARRIER-D) in place Confirmed Active Nonischemic cardiomyopathy Confirmed Active COPD (chronic obstructive pulmonary disease) Confirmed Active CKD stage 4 Confirmed Active Complete heart block Confirmed Active Acute exacerbation of CHF (congestive heart failure) Confirmed Active CAD in [place] artery Confirmed Active Gout Confirmed Active Heart [...] on: 01/28/16 Sex Sex Representation Male (finding) Cardiology Outpatient Note * Carlos MANDUJANO, Miguelangel W: PERFORM Event Display: Cardiology Note Office Authored Date: Patient: ??ELIZABETH, VERONICA ? Age:??84 Years?Sex:??Male?:??1940?? Patient did not show up for (or call to cancel) scheduled appointment with me today. Patient Care team information Care Team Personnel Name: Constance Albarran RN Position: [facility] RN Member Role: Primary Care Nurse Name: Shakila Blanco RN Position: [facility] RN Member Role: Primary Care Nurse Name: Bethany Eli Position: [facility] RN Supv Member Role: Primary Care Nurse Name: Sruthi Gorman RN Position: [facility] AMB Nurse Member Role: Primary Care Nurse Name: Barbara Putnam RN Position: [facility] RN Member Role: Primary Care Nurse Name: Yeison Lucas RN Position: [facility] RN Member Role: Primary Care Nurse Name: Tanisha Anderson NP Position: [facility] Associate Professional Member Role: Lifetime Consulting Provider Address: [address] [place], [place] [address]E [facility] [place] [address]- Telecom: Name: Wolfgang Alcala MD Position: Reference Physician Member Role: PCP Address: [address] [place] [address] [facility] Telecom: Name: Luis Quintanilla DO Position: [facility] Renal MD Member Role: Lifetime Consulting Physician Address: [address] [place], [place] [address]E [facility] [place], [place] - [place] Telecom: Name: Radha Huizar RN Position: S RN Member Role: Primary Care Nurse Name: Tiffani Pérez RN Position: S RN Member Role: Primary Care Nurse Name: Agatha Galvin RN Position: S RN Member Role: Primary Care Nurse Name: Lizzy Gaffney RN Position: S RN Member Role: Primary Care Nurse Name: Bonnie Pierre Position: S RN Member Role: Primary Care Nurse Name: Nilam John RN Position: S RN Member Role: Primary Care Nurse Name: Rosalina Goel NP Position: Reference Physician Member Role: Primary Care Nurse Address: [address] [place] [address]- Telecom: Name: Blanca Higginbotham RN Position: S RN Member Role: Primary Care Nurse Name: Agatha Perez RN Position: S RN Member Role: Primary Care Nurse Care Team Related Persons Name: HAMMAD JOHNSONRIA Name: JAIR JOHNSON Name: TIANA HOWARD Name: NILAM HOWARD Name: NO, ONE Insurance Providers Guarantor name: VERONICA JOHNSON Health Plan Information #: 1 Payer: [employer] PPO [employer] ADV Member Number: [id number] Policy Number: NA Group Number: [id number] Health Plan Information #: 2 Payer: [employer] PPO [employer] ADV Member Number: [id number] Policy Number: NA Group Number: NA
--- OUTSIDE RECORDS SUMMARY | 2024-11-08 09:34 | XMS_ITS | Continuity of Care Document ---
Author Organization [facility] Address [address] [place] [id number]- Care Team Providers Care Casino Gaming Worker Name Role Phone Cari FROST, Wolfgang Williamson Primary Care Physician [id number] Date(s): 08/31/24 - 10/15/24 [facility] [address] [place] [address]- Attending Physician: Miguelangel Gonzalez NP Admitting Physician: [...] 12:02:00 PM EDT, Route to Pharmacy Electronically, [facility]), Partial fill upon patient request [...] Refills, Maintenance, 08/30/24 11:33:00 AM EDT, Tablet, [facility] 1967, Partial fill upon patient request if [...] 3 Refills, Maintenance, Tablet, Route toPharmacy Electronically, [id number], [facility] 1967 Start Date: 07/29/18 Stop Date: [...] 11 Refills, Maintenance, 08/14/24 1:35:00 PM EDT, [facility], 180, cm, 07/06/24 8:17:00 EDT, Height, 77, kg, 07/05/24 10:17:00 EDT, Dry Weight Start Date: 08/14/24 Status: Ordered Quantity: 60.0 Unit: tablet Repeat number: 1 Farxiga 5 mg oral tablet 1 tablet = 5 mg, By Mouth, Daily, if in need of prior auth, please contact patient's PCP and/or primary records administrator., # 90 tablet, 3 Refills, Maintenance, 10/04/24 11:18:00 AM EST, Tablet, [facility], Partial fill upon patient request if the prescription is for a schedule II opioid drug. if in need of prior auth, please contact patient's PCP and/or primary records administrator., 181, cm, 10/04/24 10:42:00 EST, Height, 78.4, [...] 1:22:37 PM EDT, Route to Pharmacy Electronically, [facility] 3 Start Date: 07/29/18 Stop Date: 10/27/18 [...] Health Status Informant Cardiac resynchronization therapy defibrillator (LEAD BURNER-D) in place Confirmed Active Nonischemic cardiomyopathy Confirmed Active COPD (chronic obstructive pulmonary disease) Confirmed Active CKD stage 4 Confirmed Active Complete heart block Confirmed Active Acute exacerbation of CHF (congestive heart failure) Confirmed Active CAD in douglas artery Confirmed Active Gout Confirmed Active Heart [...] Team Personnel Name: Constance Albarran RN Position: [facility] RN Member Role: Primary Care Nurse Name: Shakila Blanco RN Position: [facility] RN Member Role: Primary Care Nurse Name: Bethany Eli Position: [facility] RN Supv Member Role: Primary Care Nurse Name: Sruthi Gorman RN Position: [facility] AMB Nurse Member Role: Primary Care Nurse Name: Barbara Putnam RN Position: [facility] RN Member Role: Primary Care Nurse Name: Yeison Lucas RN Position: [facility] RN Member Role: Primary Care Nurse Name: Tanisha Anderson NP Position: [facility] Associate Professional Member Role: Lifetime Consulting Provider Address: [address] [place], [place] [address] [address] Telecom: Name: Wolfgang Alcala MD Position: Reference Physician Member Role: PCP Address: [address] [place] [id number] Telecom: Name: Luis Quintanilla DO Position: [facility] Renal MD Member Role: Lifetime Consulting Physician Address: [address] [place], [place] [address] [place], [place] [address] Telecom: Name: Radha Huizar RN Position: [facility] RN Member Role: Primary Care Nurse Name: Tiffani Pérez RN Position: [facility] RN Member Role: Primary Care Nurse Name: Agatha Galvin RN Position: [facility] RN Member Role: Primary Care Nurse Name: Lizzy Gaffney RN Position: [facility] RN Member Role: Primary Care Nurse Name: Bonnie Pierre Position: [facility] RN Member Role: Primary Care Nurse Name: Nilam John RN Position: [facility] RN Member Role: Primary Care Nurse Name: Rosalina Goel NP Position: Reference Physician Member Role: Primary Care Nurse Address: [address] [facility] [place] [place] [address] Telecom: Name: Blanca Higginbotham RN Position: S RN Member Role: Primary Care Nurse Name: Agatha Perez RN Position: S RN Member Role: Primary Care Nurse Care Team Related Persons Name: FRANCHESCA JOHNSON Name: JAIR JOHNSON Name: TIANA HOWARD Name: NILAM HOWARD Name: NO, ONE Insurance Providers Guarantor name: [facility] Plan Information #: 2 Payer: CIG[employer] HMO POS Member Number: [id number] Policy Number: NA Group Number: Health Plan Information #: 1 Payer: AARP PPO MCARE ADV Member Number: [id number] Policy Number: NA Group Number: [id number]
--- NOTE | 2024-11-08 09:35 | MHC.PC.OV ---
Vital Signs 11/08/24 09:36 Height 6 ft Weight 169 lb 2 oz BMI 22.9 BP 120/84 Blood Pressure Location Lt brachial Position Sitting Pulse 77 Pulse Source Pulse Oximeter Pulse Oximetry (%) 94 Oxygen Delivery Method Room Air Intake Visit Reasons: 3 month f/u Concrete Tester Required: No Accompanied by: Self / Same As Patient Allergies No Known Allergies [No Known Allergies*] Allergy (Unknown, Verified 11/08/24 09:36) Medication List - Last Reconciled 11/09/24 by Wolfgang Alcala MD albuterol sulfate 90 mcg/actuation (ProAir HFA) 1 puff inhalation QID PRN allopurinol 300 mg PO DAILY amiodarone 200 mg PO DAILY amlodipine 5 mg PO DAILY apixaban (Eliquis) 2.5 mg PO BID atorvastatin 40 mg PO DAILY 90 days carvedilol 6.25 mg PO BID hydralazine 50 mg PO TID isosorbide dinitrate 10 mg PO TID 90 days latanoprost 0.005% 0 drps ophthalmic (eye) lisinopril 5 mg PO DAILY spironolactone 25 mg PO DAILY tamsulosin 0.4 mg PO DAILY torsemide 40 mg (2 x 20 mg) PO BID trazodone 100 mg PO BEDTIME PRN zolpidem (Ambien) 5 mg PO BEDTIME PRN Tobacco use date assessed: 11/08/24 Fall risk assessment: No Falls in past year Last assessed Fall Risk: 11/08/24 Dental Screening Dental Screen Date: 11/08/24 Did you have a dental visit in the last 12 months?: No Did you have a dental problem in the last 6 months where you did not have access to dental care?: No Was dental information given to patient?: No HPI 3 month f/u HPI Details cardiomyopathy; stable; sees cardiology [facility] Medical History Hyperlipidemia Renal insufficiency syndrome Chronic obstructive pulmonary disease, unspecified Cardiac resynchronization therapy defibrillator ([employer]-D) in place Paroxysmal atrial fibrillation CKD (chronic kidney disease) History of prostate cancer History of COPD Hyperlipidemia Hypertension Pulmonary hypertension Congestive heart failure Atrial fibrillation Surgical History History of surgery on right wrist History of rotator cuff surgery Family History Mother No problems noted. Father No problems noted. Social History Household Members: None Housing: House Do you presently have visiting nurse or other home services: No Alcohol intake: current Alcohol intake frequency: a few times a month Patient Tobacco Use Status: Former Tobacco user Tobacco use type: Cigarette e-Cigarette/Vaping Use: Never Used Second Hand Smoke Exposure: No service: No Current occupational status: retired Cognitive needs: No Hearing needs: No Vision needs: Yes (reading glasses) Questionnaire PHQ-9 Over the last 2 weeks, how often have you been bothered by any of the following problems? 1. Little interest or pleasure in doing things: not at all 2. Feeling down, depressed, or hopeless: not at all 3. Trouble falling or staying asleep, or sleeping too much: not at all 4. Feeling tired or having little energy: not at all 5. Poor appetite or overeating: not at all 6. Feeling bad about yourself - or that you are a failure or have let yourself or your family down: not at all 7. Trouble concentrating on things, such as reading the newspaper or watching television: not at all 8. Moving or speaking so slowly that other people could have noticed. Or the opposite - being so fidgety or restless that you have been moving around a lot more than usual: not at all 9. Thoughts that you would be better off or of hurting yourself in some way: not at all Total score: 0 Depression Screening Interpretation: Negative Depression Screening Done: Yes 93044 - PHQ-9 Billing: Yes Source: Developed by Drs. Benitez Freitas, Chata Betancourt, Paxton Antonio and colleagues, with an educational alma from [employer] [place]. Thrive Questionnaire Date Thrive assessed: 11/08/24 I am a: Patient What is your living situation today?: I have a steady place to live Within the past 12 months, did the food you bought not last and you didn't have the money to get more?: Never true Within the past 12 months, did you worry whether your food would run out before you got money to buy more?: Never true Do you have trouble paying for medicines?: No Do you have trouble getting transportation to medical appointments?: No Do you have trouble paying your heating and electricity bill?: No Do you have trouble taking care of your child, family member or friend?: No Do you have trouble with day-to-day activities such as bathing, preparing meals, shopping, managing finances, etc.?: No Are you currently unemployed and looking for a job?: Yes Are you interested in more education?: No Please select the resources that you would like help with: None Currently or been in a relationship where the following occur: No concerns reported THRIVE Score: 0 AUDIT C Alcohol Use Questionnaire (AUDIT-C) 1. How often do you have a drink containing alcohol?: Monthly or less 2. How many drinks containing alcohol do you have on a typical day when you are drinking?: 1 or 2 3. How often do you have six or more drinks on one occasion?: Never Total Score: 1 Score Reviewed/Action Taken: Yes ELOINA-7 AMB Questionnaire ELOINA-7 Date ELOINA - 7 assessed: 11/08/24 Feeling nervous, anxious, or on edge: 0 = Not at all Not being able to stop or control worryin = Not at all Worrying too much about different things: 0 = Not at all Trouble relaxin = Not at all Being so restless that it is hard to sit still: 0 = Not at all Becoming easily annoyed or irritable: 0 = Not at all Feeling afraid as if something awful might happen: 0 = Not at all Total ELOINA-7 score (0-4 normal; 5-9 mild; 10-14 moderate; 15-21 severe): 0 Source: Developed by Drs. Benitez Freitas, Chata Betancourt, Paxton Antonio and colleagues, with an educational alma from [employer] [place]. Review of Systems Const Denies chills, Denies headache(s) and Denies weight loss ENT Denies headache(s) Card Denies chest pain, Denies syncope, Denies irregular heart rhythm and Denies dyspnea Resp Denies chest congestion, Denies cough and Denies dyspnea GI Denies abdominal pain, Denies change in stool character, Denies nausea and Denies vomiting Musc Denies deformity and Denies joint swelling Neuro Denies syncope and Denies headache(s) Physical exam (Primary Care) Vital Signs: Last Vital Signs Pulse 77 11/08/24 09:36 BP 120/84 11/08/24 09:36 Pulse Ox 94 11/08/24 09:36 Oxygen Delivery Method Room Air 11/08/24 09:36 BMI result Body Mass Index 22.9 Tobacco/Smoking Status: Tobacco use Status Tobacco use date assessed 11/08/24 11/08/24 09:39 Patient Tobacco Use Status Former Tobacco user 11/08/24 09:39 Tobacco use type Cigarette 11/08/24 09:39 e-Cigarette/Vaping Use Never Used 11/08/24 09:39 PHQ-9: PHQ-9 Score PHQ-9: Total score 0 11/08/24 09:41 Depression Screening Interpretation: Negative Thrive Assessment: Date of Thrive Assessment Date Thrive assessed 11/08/24 11/08/24 09:39 Currently or been in a relationship where the following occur: No concerns reported Const General: cooperative, comfortable, no acute distress and alert Neck Neck: Yes no lymphadenopathy Thyroid: Thyroid normal Resp Effort & Inspection: normal respiratory effort Auscultation: clear to auscultation bilaterally Percussion: percussion normal Cardio Jugular venous distension: no JVD Palpation: normal PMI Rate: regular rate Rhythm: regular rhythm Heart sounds: S1 normal heart sound present and S2 normal heart sound present GI Inspection: Yes normal to inspection Palpation (GI): No hepatosplenomegaly present Skin General skin exam: no rashes or lesions noted Extrem General: Yes no clubbing, cyanosis or edema Coding Level of Care Code Est Pt Level 3 (13395) Diagnoses Congestive heart failure I50.9 Additional Codes PHQ-9 - 99453 - PHQ-9 Billing: Yes ([id number]) Assessment & Plan Assessment & Plan (1) Congestive heart failure: Code(s): I50.9 - Heart failure, unspecified Category: Medical Plan: stable; as per cardiology
[2024-11-08 09:36] VITALS: BP 120/84; PULSE 77; O2SAT 94; BMI 22.9
== END 2024-11-08 09:54 | disposition home or self-care (01) ==
PROVIDERS: PCP Internal Medicine; Visit Provider Internal Medicine
DX: I50.9 Heart failure, unspecified (principal)

== ENCOUNTER → 2024-11-08 09:31 | Outpatient (BNVA) | payer MEDICARE, SELFPAY | PROVIDERS: PCP Internal Medicine; Visit Provider Internal Medicine | DX: I13.0 Hypertensive heart and chronic kidney disease with heart failure and stage 1 through stage 4 chronic kidney disease, or unspecified chronic kidney disease (principal); N18.9 Chronic kidney disease, unspecified; I50.9 Heart failure, unspecified; E78.5 Hyperlipidemia, unspecified | CPT/HCPCS: 96127; 99212 ==

== ENCOUNTER 2025-04-13 14:55 | Outpatient (AMB) | payer MEDICARE, SELFPAY ==
[2025-04-13 15:12] VITALS: BP 114/78; PULSE 88; TEMP 36.3; O2SAT 94; BMI 22.4
--- NOTE | 2025-04-13 15:12 | A.OFFPC_ITS ---
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: No Accompanied by: Spouse Allergies No Known Allergies [No Known Allergies*] Allergy (Unknown, Verified 04/13/25 15:16) Medication List - Last Reconciled 04/13/25 by Stefani Almanzar NP albuterol sulfate 90 mcg/actuation (ProAir HFA) 1 puff inhalation QID PRN allopurinol 300 mg PO DAILY amiodarone 200 mg PO DAILY apixaban (Eliquis) 2.5 mg PO BID atorvastatin 40 mg PO DAILY 90 days carvedilol 6.25 mg PO BID latanoprost 0.005% 0 drps ophthalmic (eye) lisinopril 5 mg PO DAILY spironolactone 25 mg PO DAILY tamsulosin 0.4 mg PO DAILY torsemide 40 mg (2 x 20 mg) PO BID Tobacco use date assessed: 11/08/24 Fall risk assessment: No Falls in past year Last assessed Fall Risk: 04/13/25 Dental Screening Dental Screen Date: 11/08/24 HPI HPI Comments History of Present Illness Details 84 y/o Male patient who presents to the clinic today for HDF. He was admitted at [facility] on 03/29 - 04/03 for evaluation and treatment of Afib and CHF exacerbation. He has Vessel Welder who manages his conditions @ [facility] Card[facility] - has an upcoming appointment 05/03/25. Imdur, Amlodipine and Hydralazine were discontinued at the hospital. Pt c/o Poor appetite, and wondering he can get Ensure Food Supplements. Pt also c/o Insomnia - Ambien and Trazadone not working. Discussed Adding Mirtazapine @ Bedtime for Appetite Booster and Depression. 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 Father No problems noted. Social History Household Members: None Housing: House Do you presently have visiting nurse or other home services: No Alcohol intake: current Alcohol intake frequency: a few times a month Patient Tobacco Use Status: Former Tobacco user Tobacco use type: Cigarette e-Cigarette/Vaping Use: Never Used Second Hand Smoke Exposure: No service: No Current occupational status: retired Cognitive needs: No Hearing needs: No Vision needs: Yes (reading glasses) Questionnaire PHQ-9 Over the last 2 weeks, how often have you been bothered by any of the following problems? 1. Little interest or pleasure in doing things: not at all 2. Feeling down, depressed, or hopeless: not at all 3. Trouble falling or staying asleep, or sleeping too much: more than half the days 4. Feeling tired or having little energy: several days 5. Poor appetite or overeating: not at all 6. Feeling bad about yourself - or that you are a failure or have let yourself or your family down: not at all 7. Trouble concentrating on things, such as reading the newspaper or watching television: not at all 8. Moving or speaking so slowly that other people could have noticed. Or the opposite - being so fidgety or restless that you have been moving around a lot more than usual: not at all 9. Thoughts that you would be better off or of hurting yourself in some way: not at all Total score: 3 90943 - PHQ-9 Billing: Yes Source: Developed by Drs. Benitez Freitas, Chata Betancourt, Paxton Antonio and colleagues, with an educational alma from [employer]. Thrive Questionnaire Date Thrive assessed: 04/13/25 I am a: Patient What is your living situation today?: I have a steady place to live Within the past 12 months, did the food you bought not last and you didn't have the money to get more?: Never true Within the past 12 months, did you worry whether your food would run out before you got money to buy more?: Never true Do you have trouble paying for medicines?: No Do you have trouble getting transportation to medical appointments?: No Do you have trouble paying your heating and electricity bill?: Yes Do you have trouble taking care of your child, family member or friend?: No Do you have trouble with day-to-day activities such as bathing, preparing meals, shopping, managing finances, etc.?: I choose not to answer this question Are you currently unemployed and looking for a job?: No Are you interested in more education?: No Please select the resources that you would like help with: Utilities and Care for elder or disabled Currently or been in a relationship where the following occur: No concerns reported THRIVE Score: 1 AUDIT C Alcohol Use Questionnaire (AUDIT-C) 1. How often do you have a drink containing alcohol?: Monthly or less 2. How many drinks containing alcohol do you have on a typical day when you are drinking?: 1 or 2 3. How often do you have six or more drinks on one occasion?: Never Total Score: 1 ELOINA-7 AMB Questionnaire ELOINA-7 Date ELOINA - 7 assessed: 04/13/25 Feeling nervous, anxious, or on edge: 1 = Several days Not being able to stop or control worryin = Several days Worrying too much about different things: 0 = Not at all Trouble relaxin = Several days Being so restless that it is hard to sit still: 0 = Not at all Becoming easily annoyed or irritable: 1 = Several days Feeling afraid as if something awful might happen: 0 = Not at all Total ELOINA-7 score (0-4 normal; 5-9 mild; 10-14 moderate; 15-21 severe): 4 Source: Developed by Drs. Benitez Freitas, Chata Betancourt, Paxton Antonio and colleagues, with an educational alma from [employer]. ELOINA-7 Assessment Billing ELOINA-7 Assessment Tool: ELOINA-7 Assessment 48681 Review of Systems Const All systems reviewed & are unremarkable except as noted in HPI and below Physical exam (Primary Care) Vital Signs: Last Vital Signs Temp 97.3 F 04/13/25 15:12 Pulse 88 04/13/25 15:12 BP 114/78 04/13/25 15:12 Pulse Ox 94 04/13/25 15:12 Oxygen Delivery Method Room Air 04/13/25 15:12 BMI result Body Mass Index 22.4 Tobacco/Smoking Status: Tobacco use Status Tobacco use date assessed 11/08/24 04/13/25 15:16 Patient Tobacco Use Status Former Tobacco user 04/13/25 15:16 Tobacco use type Cigarette 04/13/25 15:16 e-Cigarette/Vaping Use Never Used 04/13/25 15:16 PHQ-9: PHQ-9 Score PHQ-9: Total score 3 04/13/25 16:11 Thrive Assessment: Date of Thrive Assessment Date Thrive assessed 04/13/25 04/13/25 15:19 Currently or been in a relationship where the following occur: No concerns reported Const General: no acute distress Nutritional Appearance: well nourished Orientation/consciousness: patient oriented x3 Chest Chest palpation & inspection: Pacemaker present (Left upper chest) Resp Effort & Inspection: normal respiratory effort Auscultation: clear to auscultation bilaterally Cardio Heart sounds: S1 normal heart sound present and S2 normal heart sound present Neuro General: patient oriented x3, gait normal and moves all extremities Coding Level of Care Code Est Pt Level 4 (69002) Diagnoses Longstanding persistent atrial fibrillation I48.11 Atrial fibrillation type: longstanding persistent Acute on chronic congestive heart failure, unspecified heart failure type I50.9 Heart failure chronicity: acute on chronic Heart failure type: unspecified Other insomnia G47.09 Insomnia type: other insomnia Additional Codes ELOINA-7 Assessment Billing - ELOINA-7 Assessment Tool: ELOINA-7 Assessment 76491 ([id number]) PHQ-9 - 68365 - PHQ-9 Billing: Yes ([id number]) Time Spent (min) 20 Assessment & Plan Assessment & Plan (1) Atrial fibrillation: Code(s): I48.91 - Unspecified atrial fibrillation Category: Medical Qualifiers: Atrial fibrillation type: longstanding persistent Qualified Code(s): I 48.11 - Longstanding persistent atrial fibrillation Plan: Managed by Cardiology (2) Congestive heart failure: Code(s): I50.9 - Heart failure, unspecified Category: Medical Qualifiers: Heart failure chronicity: acute on chronic Heart failure type: unspecified Qualified Code(s): I50.9 - Heart failure, unspecified Plan: Managed by Cardiology. (3) Insomnia: Code(s): G47.00 - Insomnia, unspecified Category: Medical Qualifiers: Insomnia type: other insomnia Qualified Code(s): G47.09 - Other insomnia Plan: Started on Mirtazapine for sleep, increase appetite and Depression/Anxiety. Pt to f/u with PCP Medications: New mirtazapine 15 mg PO BEDTIME 30 tabs 0RF G47.09 - Other insomnia Discontinued isosorbide dinitrate Discontinued Reason: Doctor's Order 10 mg PO TID 90 days 270 tabs 8RF trazodone Discontinued Reason: Patient no longer taking 100 mg PO BEDTIME PRN 30 tabs 11RF sleep hydralazine Discontinued Reason: Doctor's Order 50 mg PO TID 90 tabs 4RF amlodipine Discontinued Reason: Doctor's Order 5 mg PO DAILY 90 tabs 3RF zolpidem (Ambien) Discontinued Reason: No Longer Medically Relevant 5 mg PO BEDTIME PRN 30 tabs 0RF sleep
== END 2025-04-13 16:25 | disposition home or self-care (01) ==
LOC: HO.HMCH 14:56
PROVIDERS: Visit Provider Nurse Practitioner Family
DX: I48.11 Longstanding persistent atrial fibrillation (principal); I50.9 Heart failure, unspecified; G47.09 Other insomnia

== ENCOUNTER → 2025-04-13 14:55 | Outpatient (BNVA) | payer MEDICARE, SELFPAY | PROVIDERS: Visit Provider Nurse Practitioner Family | DX: I48.11 Longstanding persistent atrial fibrillation (principal); I50.9 Heart failure, unspecified; G47.09 Other insomnia | CPT/HCPCS: 96127; 99212 ==

== ENCOUNTER 2025-05-17 12:53 | Outpatient (AMB) | payer MEDICARE, SELFPAY ==
--- OUTSIDE RECORDS SUMMARY | 2025-05-16 23:59 | XMS_ITS | Continuity of Care Document ---
Author Organization [facility] Address [address] [place] [id number]- Care Team Providers Care Distribution Lineman Name Role Phone August MANDUJANO, Laron Masters Primary Care Physicia n [facility] [id number] Date(s): 04/16/25 - 05/16/25 [facility] [address] [place] [address] Attending Physician: Perla Diaz Admitting Physician: Perla Diaz Referring Physician: Perla Diaz Encounter Type: Triage Allergies, Adverse Reactions, Alerts No Known Allergies Immunizations Given and Recorded Vaccine Date Status Refusal Reason pneumococcal 13-valent vaccine 08/30/19 Given influenza virus vaccine, inactivated 08/30/19 Give n Medications amiodarone 200 mg oral tablet 200 mg, [...] Quantity: 90.0 Unit: tablet Repeat number: 4 atorvastatin 40 mg oral tablet 1 tablet = 40 mg, By Mouth, Daily at bedtime, # 30 tablet, 3 Refills, Maintenance, Tablet, Route toPharmacy Electronically, [id number], [facility] 1967 Start Date: 07/29/18 Stop Date: 11/26/18 Status: Ordered Quantity: 30.0 Unit: tablet Repeat number: 4 Eliquis 2.5 mg oral tablet 1 tablet, By Mouth, 2 times a day, # 60 tablet, 11 Refills, Maintenance, 08/14/24 1:35:00 PM EDT, [facility], 180, cm, 07/06/24 8:17:00 EDT, Height, 77, kg, 07/05/24 10:17:00 EDT, Dry Weight Start Date: 08/14/24 Status: Ordered Quantity: 60.0 Unit: tablet Repeat number: 1 hydrALAZINE 50 mg oral tablet 1 tablet = 50 mg, By Mouth, 3 times a day, # 90 tablet, 4 Refills, Maintenance, 04/18/25 2:59:00 PM EDT, Tablet, [facility], Partial fill upon patient request if the prescription is for a schedule II opioid drug., 180, cm, 04/18/25 14:38:00 EDT, Height, 77.5, kg, 03/29/25 13:10:00 EDT, Dry Weight Start Date: 04/18/25 Status: Ordered Quantity: 90.0 Unit: tablet Repeat number: 5 isosorbide dinitrate 10 mg oral tablet See Instructions, TAKE 2 TABLETS BY MOUTH TWICE DAILY, # 400 tablet, Refills 2, Maintenance, 04/18/25 2:58:00 PM EDT, Instructions Replace Required Details, Route to Pharmacy Electronically, [facility], 180, cm, 04/18/25 14:38:00 EDT, Height, 77.5, kg, 03/29/25 13:10:00 EDT, Dry Weight Start Date: 04/18/25 Status: Ordered Quantity: 400.0 Unit: tablet Repeat number: 1 latanoprost 0.005% ophthalmic solution 1 drops, Eyes, Both, Daily at bedtime, Maintenance, 11/11/21 2:54:00 PM EST, Ophth Solution, Partialfill upon patient request if the prescription is for a schedule II opioid drug. Start Date: 11/11/21 Status: Ordered Repeat number: 1 lidocaine 1.8% topical film 1 patch, Topically, Daily, leave on up to 12 hours, # 20 each, 0 Refills, Maintenance, 05/03/25 9:31:00 AM EDT, Film, [facility] 1966, Partial fill upon patient request if the prescription is fora schedule II opioid drug., 1 patch Topically Daily,Instr:leave on up to 12 hours, 180, cm, 05/03/25 4:51:00 EDT, Height, 74, kg, 05/03/25 4:51:00 EDT, Dry Weight Start Date: 05/03/25 Status: Ordered Quantity: 20.0 Unit: each Repeat number: 1 Multivitamin 1 tablet, By Mouth, Daily, Maintenance, 03/29/25 11:06:00 AM EDT, Partial fill upon patient request if the prescription is for a schedule II opioid drug. Start Date: 03/29/25 Status: Ordered Repeat number: 1 Please obtain basic metabolic panel in 2-3 days Please obtain basic metabolic panel in 2-3 days, See Instructions, # 1 each, Refills 0, Tot. 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 Start Date: 11/11/21 Status: Ordered Repeat number: 1 SEROquel 25 mg oral tablet 25 mg, 1, tablet, By Mouth, Daily at bedtime, PRN, May take 2 tablets if not effective, # 90 tablet, Refills 4, Tot. Refills 4, Maintenance, Agitation, 04/18/25 2:48:00 PM EDT, Route to Pharmacy Electronically, [facility] 1966, Partial fill upon patient request if the prescription is for a schedule II opioid drug., 180, cm, 04/18/25 14:38:00 EDT, Height, 77.5, kg, 03/29/25 13:10:00 EDT, Dry Weight Start Date: 04/18/25 Status: Ordered Quantity: 90.0 Unit: tablet Repeat number: 5 tamsulosin 0.4 mg oral capsule 0.4 mg, By Mouth, Daily, # 30 tablet, Refills 2, Tot. Refills 2, Maintenance, 07/29/18 1:22:37 PM EDT, Route to Pharmacy Electronically, [facility] 3 Start Date: 07/29/18 Stop Date: 10/27/18 Status: Ordered Quantity: 30.0 Unit: tablet Repeat number: 3 torsemide 20 mg oral tablet 2 tablet = 40 mg, By Mouth, 2 times a day, # 360 tablet, 4 Refills, Maintenance, 04/18/25 2:59:00 PMEDT, [facility], 180, cm, 04/18/25 14:38:00 EDT, Height, 77.5, kg, 03/29/25 13:10:00 EDT, Dry Weight Start Date: 04/18/25 Status: Ordered Quantity: 360.0 Unit: tablet Repeat number: 5 traZODone 100 mg oral tablet 100 mg, 1, tablet, By Mouth, Daily at bedtime, Refills 0, Maintenance, 03/02/25 12:17:00 PM EDT, Partial fill upon patient request if the prescription is for a schedule II opioid drug. Start Date: 03/02/25 Status: Ordered Repeat number: 1 Tylenol 325 mg oral tablet 975 mg, 3, tablet, By Mouth, Every 6 hours, PRN, # 60 tablet, Refills 0, Tot. Refills 0, Maintenance, for fever, 05/03/25 9:29:00 AM EDT, Route to Pharmacy Electronically, [facility], Partial fill upon patient request if the prescription is for a schedule II opioid drug., 180, cm, 254:51:00 EDT, Height, 74, kg, 05/03/25 4:51:00 EDT, Dry Weight Start Date: 05/03/25 Status: Ordered Quantity: 60.0 Unit: tablet Repeat number: 1 Problem List Condition Confirmation Course Effective Dates Status Health Status Informant Cardiac resynchronization therapy defibrillator (INDEPENDENT CROP CONSULTANT-D) in place Confirmed Active Nonischemic cardiomyopathy Confirmed Active Anjum-Matthews breathing Confirmed Active COPD (chronic obstructive pulmonary disease) Confirmed Active CKD stage 4 Confirmed Active Complete heart block Confirmed Active CAD in [place] artery Confirmed Active Gout Confirmed Active Heart failure with reduced ejection fraction Confirmed Active HLD (hyperlipidemia) Confirmed Active HTN (hypertension) Confirmed Active Heart disease, hypertensive, with heart failure Confirmed Active Left bundle branch block Confirmed Active Prostate cancer s/p Radiotherapy Confirmed Active Paroxysmal atrial fibrillation Confirmed Active Social History Social History Type Response Smoking Status Former smoker; Tobac co user in household: No; Other: quit smoking 1984; entered on: 01/28/16 Sex Sex Representation Male (finding) Patient Care team information Care Team Personnel Name: Constance Albarran RN Position: [facility] RN Member Role: Primary Care Nurse Name: Shakila Blanco RN Position: [facility] RN Member Role: Primary Care Nurse Name: Bethany Eli Position: [facility] RN Supv Member Role: Primary Care Nurse Name: Carline Joel RN Position: [facility] RN Member Role: Primary Care Nurse Name: Sruthi Gorman RN Position: [facility] AMB Nurse Member Role: Primary Care Nurse Name: Laverne Staples RN Position: [facility] RN Member Role: Primary Care Nurse Name: Yanelis Lopez RN Position: [facility] RN Member Role: Primary Care Nurse Name: Barbara Putnam RN Position: [facility] RN Member Role: Primary Care Nurse Name: Judd Servin RN Position: [facility] RN Member Role: Primary Care Nurse Name: Yeison Lucas RN Position: [facility] RN Member Role: Primary Care Nurse Name: Nirmal May RN Position: [facility] RN Member Role: Primary Care Nurse Name: Tanisha Anderson NP Position: [facility] Associate Professional Member Role: Lifetime Consulting Provider Address: [facility] [address] [address] Telecom: Name: Kenton Moses MD Position: [facility] Renal MD Member Role: Lifetime Consulting Physician Address: [address] [facility] [address] Telecom: Name: Luis Quintanilla DO Position: [facility] Renal Member Role: Lifetime Consulting Physician Address: [address] [facility] [place], [place] [address] Telecom: Name: Radha Huizar RN Position: [facility] RN Member Role: Primary Care Nurse Name: Tiffani Pérez RN Position: [facility] RN Member Role: Primary Care Nurse Name: Agatha Galvin RN Position: [facility] RN Member Role: Primary Care Nurse Name: Lizzy Gaffney RN Position: [facility] RN Member Role: Primary Care Nurse Name: Bonnie Pierre Position: [facility] RN Member Role: Primary Care Nurse Name: Nilam John RN Position: [facility] RN Member Role: Primary Care Nurse Name: Lizzy Manrique Position: [facility] Outreach Member Role: Lifetime Consulting Physician Name: Rosalina Goel NP Position: Reference Physician Member Role: Primary Care Nurse Address: [address] [place] [id number]- Telecom: Name: Blanca Higginbotham RN Position: [facility] RN Member Role: Primary Care Nurse Name: Agatha Perez RN Position: [facility] RN Member Role: Primary Care Nurse Name: Laron Koch NP Position: Reference Physician Member Role: PCP Address: [address] [place] [id number]- Telecom: Care Team Related Persons Name: ELIZABETH, FRANCHESCA Name: ELIZABETH JAIR Name: TIANA HOWARD Name: NILAM HOWARD Name: ASTON ONE Insurance Providers Guarantor name: VERONICA JOHNSON Health Plan Information #: 1 Payer: [facility] [employer] Payer Identifier: NA Member Number: [id number] Group Number: [id number] Subscriber Identifier: [id number] Relationship to Subscriber: self Coverage Type: NA Coverage Verification Date: NA Telecom: NA Address: NA
--- NOTE | 2025-05-17 12:56 | MHC.PC.OV ---
Vital Signs 05/17/25 12:57 Height 6 ft Weight 170 lb BMI 23.1 BP 120/78 Blood Pressure Location Lt brachial Position Sitting Pulse 77 Pulse Source Pulse Oximeter Temp 97.6 F Temp Source Oral Pulse Oximetry (%) 95 Oxygen Delivery Method Room Air Intake Visit Reasons: annual exam - see comments Intake Note: Patient here for a physical exam Bulk Folder Required: No Accompanied by: Friend Allergies No Known Allergies (No Known Allergies*) Allergy (Unknown, Verified 05/17/25 13:16) Medication List - Last Reconciled 05/17/25 by BERLIN Ma albuterol sulfate 90 mcg/actuation (ProAir HFA) 1 puff inhalation QID PRN allopurinol 300 mg PO DAILY amiodarone 200 mg PO DAILY apixaban (Eliquis) 2.5 mg PO BID atorvastatin 40 mg PO DAILY 90 days carvedilol 6.25 mg PO BID latanoprost 0.005% 0 drps ophthalmic (eye) lisinopril 5 mg PO DAILY mirtazapine 15 mg PO BEDTIME spironolactone 25 mg PO DAILY tamsulosin 0.4 mg PO DAILY torsemide 40 mg (2 x 20 mg) PO BID Tobacco use date assessed: 11/08/24 Fall risk assessment: No Falls in past year Last assessed Fall Risk: 05/17/25 Dental Screening Dental Screen Date: 05/17/25 Did you have a dental visit in the last 12 months?: No Did you have a dental problem in the last 6 months where you did not have access to dental care?: No Was dental information given to patient?: No HPI annual exam - see comments HPI Details Dentist: No, not in awhile Eye:Not in awhile Snellen: Right: Left: Corrected vision: reports that he does not wear any glasses STI screening: Colonoscopy: Pap Smer: PHQ-9: Flu: up to date COVID: x4 Tdap: due Diet:regular diet Exercise: reports doing a lot yardwork sob more of the times on and off, denies chest pain 3 weeks back- [facility] Medical History Insomnia Hyperlipidemia Renal insufficiency syndrome Chronic obstructive pulmonary disease, unspecified Cardiac resynchronization therapy defibrillator (UX RESEARCH ASSOCIATE-D) in place Paroxysmal atrial fibrillation CKD (chronic kidney disease) History of prostate cancer History of COPD Hyperlipidemia Hypertension Pulmonary hypertension Congestive heart failure Atrial fibrillation Surgical History History of surgery on right wrist History of rotator cuff surgery Family History Mother No problems noted. Father No problems noted. Social History Household Members: None Housing: House Do you presently have visiting nurse or other home services: No Alcohol intake: current Alcohol intake frequency: a few times a month Patient Tobacco Use Status: Former Tobacco user Tobacco use type: Cigarette e-Cigarette/Vaping Use: Never Used Second Hand Smoke Exposure: No service: No Current occupational status: retired Cognitive needs: No Hearing needs: No Vision needs: Yes (reading glasses) Questionnaire Thrive Questionnaire Date Thrive assessed: 04/13/25 I am a: Patient What is your living situation today?: I have a steady place to live Within the past 12 months, did the food you bought not last and you didn't have the money to get more?: Never true Within the past 12 months, did you worry whether your food would run out before you got money to buy more?: Never true Do you have trouble paying for medicines?: No Do you have trouble getting transportation to medical appointments?: No Do you have trouble paying your heating and electricity bill?: Yes Do you have trouble taking care of your child, family member or friend?: No Do you have trouble with day-to-day activities such as bathing, preparing meals, shopping, managing finances, etc.?: I choose not to answer this question Are you currently unemployed and looking for a job?: No Are you interested in more education?: No Currently or been in a relationship where the following occur: No concerns reported THRIVE Score: 1 ELOINA-7 AMB Questionnaire ELOINA-7 Date ELOINA - 7 assessed: 04/13/25 Source: Developed by Drs. Benitez Freitas, Chata Betancourt, Paxton Antonio and colleagues, with an educational alma from [employer] Review of Systems Const Reports daytime sleepiness, Reports difficulty sleeping, Denies headache(s) and Reports snoring Eyes Denies loss of vision ENT Denies vertigo, Denies dizziness, Denies headache(s) and Denies sore throat Card Denies chest pain, Denies leg edema, Denies lightheadedness and Reports dyspnea (intermittently) Resp Denies cough, Denies hemoptysis, Reports dyspnea (intermittently), Reports snoring and Denies wheezing GI Denies abdominal pain, Denies melena, Denies constipation, Denies diarrhea and Denies vomiting Denies dysuria, Denies urinary frequency and Denies urinary urgency Musc Denies arthralgias, Denies joint swelling, Denies numbness and Denies tingling Neuro Denies Abnormal speech present, Denies behavioral changes, Denies vertigo, Denies dizziness, Denies headache(s), Denies loss of vision, Denies memory loss, Denies numbness and Denies tingling Psych Denies anxiety, Denies behavioral changes, Denies depression, Denies memory loss and Denies panic attacks Rajinder/Lymph Denies easy bleeding and Denies easy bruising Aller/Immun Denies wheezing Physical exam (Primary Care) Vital Signs: Last Vital Signs Temp 97.6 F 05/17/25 12:57 Pulse 77 05/17/25 12:57 BP 120/78 05/17/25 12:57 Pulse Ox 95 05/17/25 12:57 Oxygen Delivery Method Room Air 05/17/25 12:57 BMI result Body Mass Index 23.1 Tobacco/Smoking Status: Tobacco use Status Tobacco use date assessed 11/08/24 05/17/25 13:04 Patient Tobacco Use Status Former Tobacco user 05/17/25 13:04 Tobacco use type Cigarette 05/17/25 13:04 e-Cigarette/Vaping Use Never Used 05/17/25 13:04 Thrive Assessment: Date of Thrive Assessment Date Thrive assessed 04/13/25 05/17/25 13:04 Currently or been in a relationship where the following occur: No concerns reported Const General: healthy appearing, no acute distress, alert and awake Nutritional Appearance: well nourished Orientation/consciousness: oriented to person, oriented to place and oriented to time HENMT Ears: TM's normal bilaterally General nose exam: Normal nasal mucous membranes and turbinates present Eyes Conjunctivae: conjunctivae normal Sclerae: sclerae normal Pupils: Equal, round and reactive pupils present Neck Neck: Yes no lymphadenopathy and Yes no JVD Thyroid: Thyroid normal Carotids: no bruits Resp Effort & Inspection: normal respiratory effort and not tachypneic Auscultation: no crackles, no rales, no rhonchi and no wheezes Cardio Rate: regular rate Rhythm: regular rhythm Heart sounds: no murmurs and normal S1 and S2 GI Palpation (GI): Soft to palpation, nontender, no hepatomegaly and no splenomegaly Auscultation: normal bowel sounds Skin General skin exam: no rashes or lesions noted and dry skin Neuro General: oriented to person, oriented to place and oriented to time Cranial nerves: Yes Equal, round and reactive pupils present Speech: No Abnormal speech present Gait exam (Neuro): Normal gait present Motor exam (neuro): no tremor noted Extrem Right upper extremity: full ROM Left upper extremity: full ROM Right lower extremity: full ROM; no edema Left lower extremity: full ROM; no edema Psych Mental Status: mental status grossly normal Speech and movement: Normal speech and movement present Affect: normal affect Attitude: cooperative Thought process: Normal thought process present Immunizations Tenivac (PF) 5 Lf unit-2 Lf unit/0.5 mL intramuscular syringe Performing Provider: BERLIN Ma [facility] [place] Administered by: KELLY Cardenas on 05/17/25 13:24 Dose Route Admin Location Dispensed Lot Number Expiration Date NDC Lead Fabricator 0.5 mL IM Left Deltoid 0.5 mL [id number] 01/30/27 20430-441-47 [employer] Total Dispensed Waste 0.5 mL 0 % VIS Given Date VIS Provided VIS Publication Date 05/17/25 Single Vaccine 21 Eligibility Eligibility Date Funding Source Not [facility] Eligible 05/17/25 Private Coding Assessment & Plan Assessment & Plan Orders: Orders Lipid Panel Today E78.5 - Hyperlipidemia, unspecified, G47.09 - Other insomnia, I10 - Essential (primary) hypertension, I21.9 - Acute myocardial infarction, unspecified, I48.11 - Longstanding persistent atrial fibrillation, I50.9 - Heart failure, unspecified, J45.909 - Unspecified asthma, uncomplicated, M10.9 - Gout, unspecified, N28.9 - Disorder of kidney and ureter, unspecified, Z00.00 - Encounter for general adult medical examination without abnormal findings Uric Acid Today E78.5 - Hyperlipidemia, unspecified, G47.09 - Other insomnia, I10 - Essential (primary) hypertension, I21.9 - Acute myocardial infarction, unspecified, I48.11 - Longstanding persistent atrial fibrillation, I50.9 - Heart failure, unspecified, J45.909 - Unspecified asthma, uncomplicated, M10.9 - Gout, unspecified, N28.9 - Disorder of kidney and ureter, unspecified, Z00.00 - Encounter for general adult medical examination without abnormal findings RT sleep testing - MSLT Today R06.81 - Apnea, not elsewhere classified, R06.83 - Snoring Td Immunization Today Z23 - Encounter for immunization Complete Blood Count Auto Diff Today E78.5 - Hyperlipidemia, unspecified, G47.09 - Other insomnia, I10 - Essential (primary) hypertension, I21.9 - Acute myocardial infarction, unspecified, I48.11 - Longstanding persistent atrial fibrillation, I50.9 - Heart failure, unspecified, J45.909 - Unspecified asthma, uncomplicated, M10.9 - Gout, unspecified, N28.9 - Disorder of kidney and ureter, unspecified, Z00.00 - Encounter for general adult medical examination without abnormal findings Comprehensive Hamel. Panel Fast Today E78.5 - Hyperlipidemia, unspecified, G47.09 - Other insomnia, I10 - Essential (primary) hypertension, I21.9 - Acute myocardial infarction, unspecified, I48.11 - Longstanding persistent atrial fibrillation, I50.9 - Heart failure, unspecified, J45.909 - Unspecified asthma, uncomplicated, M10.9 - Gout, unspecified, N28.9 - Disorder of kidney and ureter, unspecified, Z00.00 - Encounter for general adult medical examination without abnormal findings TSH reflex Free T4 Today E78.5 - Hyperlipidemia, unspecified, G47.09 - Other insomnia, I10 - Essential (primary) hypertension, I21.9 - Acute myocardial infarction, unspecified, I48.11 - Longstanding persistent atrial fibrillation, I50.9 - Heart failure, unspecified, J45.909 - Unspecified asthma, uncomplicated, M10.9 - Gout, unspecified, N28.9 - Disorder of kidney and ureter, unspecified, Z00.00 - Encounter for general adult medical examination without abnormal findings UA CC w/rflx Micro + Cult Today E78.5 - Hyperlipidemia, unspecified, G47.09 - Other insomnia, I10 - Essential (primary) hypertension, I21.9 - Acute myocardial infarction, unspecified, I48.11 - Longstanding persistent atrial fibrillation, I50.9 - Heart failure, unspecified, J45.909 - Unspecified asthma, uncomplicated, M10.9 - Gout, unspecified, N28.9 - Disorder of kidney and ureter, unspecified, Z00.00 - Encounter for general adult medical examination without abnormal findings Vitamin D 25-OH Total Today E78.5 - Hyperlipidemia, unspecified, G47.09 - Other insomnia, I10 - Essential (primary) hypertension, I21.9 - Acute myocardial infarction, unspecified, I48.11 - Longstanding persistent atrial fibrillation, I50.9 - Heart failure, unspecified, J45.909 - Unspecified asthma, uncomplicated, M10.9 - Gout, unspecified, N28.9 - Disorder of kidney and ureter, unspecified, Z00.00 - Encounter for general adult medical examination without abnormal findings B Type Natriuretic Peptide Today E78.5 - Hyperlipidemia, unspecified, G47.09 - Other insomnia, I10 - Essential (primary) hypertension, I21.9 - Acute myocardial infarction, unspecified, I48.11 - Longstanding persistent atrial fibrillation, I50.9 - Heart failure, unspecified, J45.909 - Unspecified asthma, uncomplicated, M10.9 - Gout, unspecified, N28.9 - Disorder of kidney and ureter, unspecified, Z00.00 - Encounter for general adult medical examination without abnormal findings
[2025-05-17 12:57] VITALS: BP 120/78; PULSE 77; TEMP 36.4; O2SAT 95; BMI 23.1
--- OUTSIDE RECORDS SUMMARY | 2025-05-17 13:19 | XMS_ITS | Clinical Summary ---
Author Organization [facility] ity Address [address] [place] [address] Care Team Providers Care Overlock Elastic Attacher Name Role Phone Unavailable Primary Care Provider Unavailabl e Social History Tobacco Use Types Packs/Day Years Used Date Smoking Tobacco: Never Assessed Sex and Gender Information Value Date Recorded Sex Assigned at Not on file Legal Sex Male 1:27 PM EST Gender Identity Not on file Sexual Orientation Not on file Plan of Treatment Health Maintenance Due Date Last Done Comments DTaP,Tdap,and Td Vaccines (1 - Tdap) 1959 Zoster Vaccines (1 of 2) 1959 RSV Immunization Adult Patients (1 - 1-dose 75+ series) 2015 COVID-19 Vaccine (3 - Pfizer risk series) 03/19/2021 02/19/2021, 01/28/2021 Cholesterol Screening (Lipid Panel) 09/29/2022 Depression Screening 09/29/2022 Falls Risk Assessment 09/29/2022 Social Influencers of Health Screening 09/29/2022 Hypertension/CHF/CAD Annual BMP Blood Test 01/09/2025 Influenza Vaccine (#1) 2025 9, 09/12/2015 Pneumococcal Vaccine: 50+ Years Completed 08/09/2020, 08/30/2019 HIB Vaccines Aged Out No longer eligi ble based on patient's age to complete this topic HPV Vaccines Aged Out No longer eligi ble based on patient's age to complete this topic Hepatitis A Vaccines Aged Out No long er eligible based on patient's age to complete this topic Hepatitis B Vaccines Aged Out No long er eligible based on patient's age to complete this topic IPV Vaccines Aged Out No longer eligi ble based on patient's age to complete this topic MMR Vaccines Aged Out No longer eligi ble based on patient's age to complete this topic Meningococcal ACWY Vaccine Aged Out N o longer eligible based on patient's age to complete this topic Meningococcal B Vaccine Aged Out No l onger eligible based on patient's age to complete this topic RSV Immunization Patients Under 20 months Aged Out No longer eligible b ased on patient's age to complete this topic Varicella Vaccines Aged Out No longer eligible based on patient's age to complete this topic
--- OUTSIDE RECORDS SUMMARY | 2025-05-17 13:19 | XMS_ITS | Encounter Summary ---
Author Organization [facility] Address [address] [place] [address] Phone Care Team Providers Care Timber Trimmer Name Role Phone Wolfgang Alcala MD Primary Care Provider [phone] Encounter Details Date Type Department Care Team (Late st Contact Info) Description 01/30/2025 Documentation Only [facility] [address] [place] [address] Luis Quintanilla DO [address] [place] [address] Social History Tobacco Use Types Packs/Day Years Used Date Smoking Tobacco: Former Smokeless Tobacco: Never Alcohol Use Standard Drinks/Week Comments Yes 0 (1 standard drink = 0.6 oz pur e alcohol) Sex and Gender Information Value Date Recorded Sex Assigned at Not on file Legal Sex Male 4:31 PM EST Gender Identity Not on file Sexual Orientation Not on file documented as of this encounter Plan of Treatment Upcoming Encounters Date Type Department Care Team (Late st Contact Info) Description 05/23/2025 2:15 PM EDT Office Visit [facility] [address] [place] [address] Luis Quintanilla DO [address] [place] [address] documented as of this encounter Visit Diagnoses Not on filedocumented in this encounter Care Teams Timber Trimmer Relationship Specialty Start Date End Date Wolfgang Alcala MD [address] [place] PCP - General Internal Medicine 09/08/21 documented as of this encounter
--- OUTSIDE RECORDS SUMMARY | 2025-05-17 13:19 | XMS_ITS | Patient Health Record ---
Author Organization [facility] Address [address] [place] [address] Care Team Providers Care Yard Jacker Name Role Phone Petey Laughlin MD Primary Care Provider Unavailab Brian Pittman Jr Unavailable Rayo FROST, Agatha Unavailable Unavailable Reason For Referral No Information Medications Medication SIG (Take, Route, Frequency, Duration) Notes Start Date End Date Status Atorvastatin Calcium 40 MG 1 tablet Oral ly Once a day Active Torsemide 20 MG 1 tablet Orally Once a day Active Warfarin Sodium 5 MG 1 to 11/2 tablet Or ally Once a day/as directed Active Carvedilol 6.25 MG 2 Orally BID Active Colocort 100 MG/60ML 1 as directied Rect al in the evening 12/01/2017 Active Tamsulosin HCl 0.4 MG 1 capsule Orally O nce a day Active Social History Alcohol Screen Question Answer Notes Did you have a drink contain ing alcohol in the past year? Yes How often did you have a dri nk containing alcohol in the past year? Monthly or less (1 point) How many drinks did you have on a typical day when you were drinking in the past year? 1 or 2 drinks (0 point) How often did you have 6 or more drinks on one occasion in the past year? 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
== END 2025-05-17 13:49 | disposition home or self-care (01) ==
LOC: HO.HMCH 12:54
PROVIDERS: PCP Internal Medicine
DX: Z23 Encounter for immunization (principal)

== ENCOUNTER → 2025-05-17 12:53 | Outpatient (BNVA) | payer MEDICARE, SELFPAY | PROVIDERS: PCP Internal Medicine | DX: Z00.00 Encounter for general adult medical examination without abnormal findings (principal); Z23 Encounter for immunization; J45.909 Unspecified asthma, uncomplicated; M1A.9XX0 Chronic gout, unspecified, without tophus (tophi); N28.9 Disorder of kidney and ureter, unspecified; I48.11 Longstanding persistent atrial fibrillation; E78.5 Hyperlipidemia, unspecified; I11.0 Hypertensive heart disease with heart failure; I50.9 Heart failure, unspecified; G47.09 Other insomnia; R06.83 Snoring; R06.81 Apnea, not elsewhere classified | CPT/HCPCS: 90471; 90714; 99397 ==

== ENCOUNTER 2025-09-03 15:36 | Outpatient (AMB) | payer MEDICARE, SELFPAY ==
--- OUTSIDE RECORDS SUMMARY | 2025-09-02 03:48 | XMS_ITS | Continuity of Care Document ---
Author Organization [facility] ter Address [address] [place] [id number]- Care Team Providers Care Independent Beauty Consultant Name Role Phone August MANDUJANO, Laron Masters Primary [facility] n [id number]): 09/01/25 - 09/02/[address] [address]- Discharge Disposition: A-D/C Walkout Attending Physician: Not on Staff, Attending MD Admitting Physician: Not on Staff, Admitting MD Referring Physician: Not on Staff, Referring MD Encounter Type: Disch ES Allergies, Adverse Reactions, Alerts No Known Allergies [...] Dry Weight Start Date: 10/04/24 Status: Ordered Medication Dispense Status: Completed Quantity: 90.0 Unit: tablet Total Allowed Fills: 4 Fills Dispensed: 0 atorvastatin 40 mg oral tablet 1 tablet = 40 mg, By Mouth, Daily at bedtime, # 30 tablet, 3 Refills, Maintenance, Tablet, Route toPharmacy Electronically, [id number], [facility] 1967 Start Date: 07/29/18 Stop Date: 11/26/18 Status: Ordered Medication Dispense Status: Completed Quantity: 30.0 Unit: tablet Total Allowed Fills: 4 Fills Dispensed: 0 Eliquis 2.5 mg oral tablet 1 tablet, By Mouth, 2 times a day, # 60 tablet, 11 Refills, Maintenance, 08/14/24 1:35:00 PM EDT, [facility], 180, cm, 07/06/24 8:17:00 EDT, Height, 77, kg, 07/05/24 10:17:00 EDT, Dry Weight Start Date: 08/14/24 Status: Ordered Medication Dispense Status: Completed Quantity: 60.0 Unit: tablet Total Allowed Fills: 1 Fills Dispensed: 0 hydrALAZINE 50 mg oral tablet 1 tablet, By Mouth, 3 times a day, # 300 tablet, 2 Refills, Maintenance, 06/26/25 7:38:00 AM EDT, [facility], 180, cm, 06/12/25 13:00:00 EDT, Height, 75.7, kg, 06/17/25 10:48:00 EDT, Dry Weight Start Date: 06/26/25 Status: Ordered Medication Dispense Status: Completed Quantity: 300.0 Unit: tablet Total Allowed Fills: 1 Fills Dispensed: 0 isosorbide dinitrate 10 mg oral tablet 2, tablet, By Mouth, 2 times a day, # 400 tablet, Refills 2, Maintenance, 05/25/25 7:26:00 AM EDT, Route to Pharmacy Electronically, [facility], 180, cm, 05/14/25 13:40:00 EDT, Height, 74, kg, 05/03/25 4:51:00 EDT, Dry Weight Start Date: 05/25/25 Status: Ordered Medication Dispense Status: Completed Quantity: 400.0 Unit: tablet Total Allowed Fills: 1 Fills Dispensed: 0 latanoprost 0.005% ophthalmic solution 1 drops, Eyes, Both, Daily at bedtime, Maintenance, 11/11/21 2:54:00 PM EST, Ophth Solution, Partialfill upon patient request if the prescription is for a schedule II opioid drug. Start Date: 11/11/21 Status: Ordered Medication Dispense Status: Completed Total Allowed Fills: 1 Fills Dispensed: 0 lidocaine 1.8% topical film 1 patch, Topically, Daily, leave on up to 12 hours, # 20 each, 0 Refills, Maintenance, 05/03/25 9:31:00 AM EDT, Film, [facility] 1967, Partial fill upon patient request if the prescription is fora schedule II opioid drug., 1 patch Topically Daily,Instr:leave on up to 12 hours, 180, cm, 05/03/25 4:51:00 EDT, Height, 74, kg, 05/03/25 4:51:00 EDT, Dry Weight Start Date: 05/03/25 Status: Ordered Medication Dispense Status: Completed Quantity: 20.0 Unit: each Total Allowed Fills: 1 Fills Dispensed: 0 Multivitamin 1 tablet, By Mouth, Daily, Maintenance, 03/29/25 11:06:00 AM EDT, Partial fill upon patient request if the prescription is for a schedule II opioid drug. Start Date: 03/29/25 Status: Ordered Medication Dispense Status: Completed Total Allowed Fills: 1 Fills Dispensed: 0 Please obtain basic metabolic panel in 2-3 days Please obtain basic metabolic panel in 2-3 days, See Instructions, # 1 each, Refills 0, Tot. Refills 0, Maintenance, dx: CDK stage 4 ICD 10: N18.4, 03/11/25 11:21:00 AM EDT, Supply Start Date: 03/11/25 Status: Ordered Medication Dispense Status: Completed Quantity: 1.0 Unit: each Total Allowed Fills: 1 Fills Dispensed: 0 ProAir HFA 90 mcg/inh inhalation aerosol 1 puffs, Inhalation, 4 times a day, PRN as needed for wheezing, Maintenance, 11/11/21 2:50:00 PM EST, Aerosol, Partial fill upon patient request if the prescription is for a schedule II opioid drug. Start Date: 11/11/21 Status: Ordered Medication Dispense Status: Completed Total Allowed Fills: 1 Fills Dispensed: 0 SEROquel 25 mg oral tablet 25 mg, 1, tablet, By Mouth, Daily at bedtime, PRN, May take 2 tablets if not effective, # 90 tablet, Refills 4, Tot. Refills 4, Maintenance, Agitation, 04/18/25 2:48:00 PM EDT, Route to Pharmacy Electronically, [facility] 1967, Partial fill upon patient request if the prescription is for a schedule II opioid drug., 180, cm, 04/18/25 14:38:00 EDT, Height, 77.5, kg, 03/29/25 13:10:00 EDT, Dry Weight Start Date: 04/18/25 Status: Ordered Medication Dispense Status: Completed Quantity: 90.0 Unit: tablet Total Allowed Fills: 5 Fills Dispensed: 0 tamsulosin 0.4 mg oral capsule 0.4 mg, By Mouth, Daily, # 30 tablet, Refills 2, Tot. Refills 2, Maintenance, 07/29/18 1:22:37 PM EDT, Route to Pharmacy Electronically, [facility] Start Date: 07/29/18 Stop Date: 10/27/18 Status: Ordered Medication Dispense Status: Completed Quantity: 30.0 Unit: tablet Total Allowed Fills: 3 Fills Dispensed: 0 torsemide 20 mg oral tablet 2 tablet = 40 mg, By Mouth, 2 times a day, # 360 tablet, 4 Refills, Maintenance, 04/18/25 2:59:00 PMEDT, [facility], 180, cm, 04/18/25 14:38:00 EDT, Height, 77.5, kg, 03/29/25 13:10:00 EDT, Dry Weight Start Date: 04/18/25 Status: Ordered Medication Dispense Status: Completed Quantity: 360.0 Unit: tablet Total Allowed Fills: 5 Fills Dispensed: 0 traZODone 100 mg oral tablet 100 mg, 1, tablet, By Mouth, Daily at bedtime, Refills 0, Maintenance, 03/02/25 12:17:00 PM EDT, Partial fill upon patient request if the prescription is for a schedule II opioid drug. Start Date: 03/02/25 Status: Ordered Medication Dispense Status: Completed Total Allowed Fills: 1 Fills Dispensed: 0 Tylenol 325 mg oral tablet 975 mg, 3, tablet, By Mouth, Every 6 hours, PRN, # 60 tablet, Refills 0, Tot. Refills 0, Maintenance, for fever, 05/03/25 9:29:00 AM EDT, Route to Pharmacy Electronically, [facility] 1966, Partial fill upon patient request if the prescription is for a schedule II opioid drug., 180, cm, 254:51:00 EDT, Height, 74, kg, 05/03/25 4:51:00 EDT, Dry Weight Start Date: 05/03/25 Status: Ordered Medication Dispense Status: Completed Quantity: 60.0 Unit: tablet Total Allowed Fills: 1 Fills Dispensed: 0 Mental Status Mental Status Assessment Assessment Assessment Component Result Effecti ve Date Fady coma score total 15 09/01/25 Mental Status Assessment Assessment Assessment Component Result Effecti ve Date Fady coma score total 15 09/01/25 Problem List Condition Confirmation Course Effective Dates Status Health Status Informant 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 Confirmed Active Nonischemic cardiomyopathy Confirmed Active Anjum-Matthews breathing Confirmed Active COPD (chronic obstructive pulmonary disease) Confirmed Active CKD stage 4 Confirmed Active Complete heart block Confirmed Active CAD in [place] artery Confirmed Active Gout Confirmed Active Heart failure with reduced ejection fraction Confirmed Active HLD (hyperlipidemia) Confirmed Active HTN (hypertension) Confirmed Active Heart disease, hypertensive, with heart failure Confirmed Active Left bundle branch block Confirmed Active Prostate cancer s/p Radiotherapy Confirmed Active Paroxysmal atrial fibrillation Confirmed Active Results Radiology Reports * Exam Date Time Procedure Performing Provider Status 09/01/25 7:42 PM Chest 2 Views Frontal and Lat Auth (Verified) Notes: (Chest 2 Views Frontal and Lat) Reason For Exam: Chest Pain;Other: RESULT: Chest 2 Views Frontal and Lat Chest 2 Views Frontal and Lat Hx of Present Illness: pt states bli lower weakness and swelling over the past couple weeks, pt denies any CP no SOB hx CHF; Reason: Other:; Chest Pain; Clinical Question(s): Other: COMPARISON: 08/08/2025 FINDINGS: LINES AND TUBES: Triple-lead left subclavian pacer/AICD wires are intact. LUNGS AND PLEURA: Suspected mild pulmonary edema. No pleural effusion is obvious. Hyperinflated lungs. HEART, MEDIASTINUM AND JEMMA: Enlarged but unchanged cardiac silhouette. Central vascular quadrant. BONES AND SOFT TISSUES: No acute abnormality. IMPRESSION: Mild pulmonary edema. WSN: [id number] Ordering Physician: Shruthi Ramirez Dictated By: César Cueto MD Dictated Date/Time: 09/01/25 7:53 pm Reviewed By: César Cueto MD Signed By: César Cueto MD Signed Date/Time: 09/01/25 7:53 pm Transcribed By: STEFAN Transcribed Date/Time: 09/01/25 7:51 pm Vital Signs Most recent to oldest [Reference Range]: 1 2 Height 180 cm (09/01/25 6:32 PM) Weight 75 kg (09/01/25 6:32 PM) Oxygen Saturation [94-100 %] 97 % (09/02/25 12:18 AM) 99 % (09/01/25 6:32 PM) Pulse Rate [55-90 bpm] 67 bpm (09/02/25 12:18 AM) 76 bpm (09/01/25 6:32 PM) Body Mass Index [18.5-24.99 kg/m2] 23.15 kg/m2 (09/01/25 6:32 PM) Blood Pressure [90-138/55-84 mm Hg] 136/ 97mm Hg (09/02/25 12:18 AM) 120/74mm Hg (09/01/25 6:32 PM) Respiratory Rate [16-30 br/min] 16 br/mi n (09/02/25 12:18 AM) 20 br/min (09/01/25 6:32 PM) Temperature [96.8-100.4 DegF] 98.2 DegF (09/02/25 12:18 AM) 98.1 DegF (09/01/25 6:32 PM) Mode of Delivery (Oxygen) Room air (09/02/25 12:18 AM) Room air (09/01/25 6:32 PM) Blood pressure sites Arm, left (09/02/25 12:18 AM) Arm, left (09/01/25 6:32 PM) Temperature Route Oral (09/02/25 12:18 AM) Oral (09/01/25 6:32 PM) Weight Obtained Via Patient/family state d (09/01/25 6:32 PM) Social History Social History Type Response Smoking Status Former smoker; Tobac co user in household: No; Other: quit smoking 1984; entered on: 01/28/16 Sex Sex Representation Male (finding) Status N/A EKG study * Event Display: EKG Authored Date: Patient Care team information Care Team Personnel Name: Constance Albarran RN Position: [facility] RN Member Role: Primary Care Nurse Name: Shakila Blanco RN Position: [facility] RN Member Role: Primary Care Nurse Name: Bethany Eli Position: [facility] RN Supv Member Role: Primary Care Nurse Name: Carline Joel RN Position: [facility] RN Member Role: Primary Care Nurse Name: Sruthi Gorman RN Position: [facility] AMB Nurse Member Role: Primary Care Nurse Name: Laverne Staples RN Position: [facility] RN Member Role: Primary Care Nurse Name: Frieda Rodriguez Position: [facility] Outreach Member Role: Lifetime Consulting Physician Name: Yanelis Lopez RN Position: [facility] RN Member Role: Primary Care Nurse Name: Barbara Putnam RN Position: [facility] RN Member Role: Primary Care Nurse Name: Judd Servin RN Position: [facility] RN Member Role: Primary Care Nurse Name: Yeison Lucas RN Position: [facility] RN Member Role: Primary Care Nurse Name: Nirmal May RN Position: [facility] RN Member Role: Primary Care Nurse Name: Tanisha Anderson NP Position: [facility] Associate Professional Member Role: Lifetime Consulting Provider Address: [facility] [address] [facility] [address] Telecom: Name: Kenton Moses MD Position: [facility] Renal MD Member Role: Lifetime Consulting Physician Address: [address] [facility] [address] Telecom: Name: Luis Quintanilla DO Position: [facility] Renal MD Member Role: Lifetime Consulting Physician Address: [address] [facility] [address] Telecom: Name: Radha Huizar RN Position: [facility] RN Member Role: Primary Care Nurse Name: Tiffani Pérez RN Position: [facility] RN Member Role: Primary Care Nurse Name: Agatha Galvin RN Position: [facility] RN Member Role: Primary Care Nurse Name: Lizzy Gaffney RN Position: [facility] RN Member Role: Primary Care Nurse Name: Bonnie Pierre Position: [facility] RN Member Role: Primary Care Nurse Name: Nilam John RN Position: [facility] RN Member Role: Primary Care Nurse Name: Lizzy Manrique Position: [facility] Outreach Member Role: Lifetime Consulting Physician Name: Rosalina Goel NP Position: Reference Physician Member Role: Primary Care Nurse Address: [address] [place] [address] [place] [address]- [place] Telecom: Name: Blanca Higginbotham RN Position: [facility] RN Member Role: Primary Care Nurse Name: Agatha Perez RN Position: [facility] RN Member Role: Primary Care Nurse Name: Laron Koch NP Position: Reference Physician Member Role: PCP Address: [address] [place] [address]- [place] Telecom: Care Team Related Persons Name: FRANCHESCA JOHNSON Name: JAIR JOHNSON Name: TIANA HOWARD Name: NILAM HOWARD Name: NO, ONE Insurance Providers Guarantor name: VERONICA JOHNSON Health Plan Information #: 1 Payer: [employer] Payer Identifier: NA Member Number: [id number] Group Number: [id number] Subscriber Identifier: [id number] Relationship to Subscriber: self Coverage Type: NA Coverage Verification Date: NA Telecom: NA Address: NA Health Plan Information #: 2 Payer: [employer] Payer Identifier: NA Member Number: [id number] Group Number: [id number] Subscriber Identifier: [id number] Relationship to Subscriber: self Coverage Type: NA Coverage Verification Date: NA Telecom: NA Address: NA
[2025-09-03 15:41] VITALS: BP 102/64; PULSE 69; RESP 18; TEMP 36.2; O2SAT 96
--- NOTE | 2025-09-03 15:41 | MHC.PC.OV ---
Vital Signs 09/03/25 15:41 Height 6 ft BMI Reason not done Patient refused/unable BP 102/64 Blood Pressure Location Lt brachial Position Sitting Respiration 18 Pulse 69 Pulse Source Pulse Oximeter Temp 97.1 F Temp Source Temporal Artery Scan Pulse Oximetry (%) 96 Oxygen Delivery Method Room Air Intake Visit Reasons: afib/asthma/chf Furnace Mason Required: No Accompanied by: Self / Same As Patient Allergies No Known Allergies (No Known Allergies*) Allergy (Unknown, Verified 09/08/25 14:59) Medication List - Last Reconciled 09/08/25 by BERLIN Ma albuterol sulfate 90 mcg/actuation (ProAir HFA) 1 puff inhalation QID PRN allopurinol 300 mg PO DAILY amiodarone 200 mg PO DAILY apixaban (Eliquis) 2.5 mg PO BID atorvastatin 40 mg PO DAILY 90 days carvedilol 6.25 mg PO BID latanoprost 0.005% 0 drps ophthalmic (eye) lisinopril 5 mg PO DAILY mirtazapine 15 mg PO BEDTIME spironolactone 25 mg PO DAILY tamsulosin 0.4 mg PO DAILY torsemide 60 mg (3 x 20 mg) PO BID 30 days Tobacco use date assessed: 09/03/25 Fall risk assessment: No Falls in past year Last assessed Fall Risk: 09/03/25 Dental Screening Dental Screen Date: 09/03/25 Did you have a dental visit in the last 12 months?: No Did you have a dental problem in the last 6 months where you did not have access to dental care?: No Was dental information given to patient?: No HPI afib/asthma/chf HPI Details The patient is a 80-year-old male with past medical history of coronary artery disease, COPD, CKD, complete heart block with REQUIREMENTS MANAGER-D replacement, heart failure, HLD, HTN, left bundle branch block, AFib on Eliquis, and prostate cancer. Patient presenting for follow up appointment on chronic conditions. The patient presented via wheelchair being pushed by his daughter. He reports that he has some pain in his left ankle, plus shortness of breath makes it hard for him to ambulate. Ambulated from hallway to exam room. Patient was seen outside hospital on August 09 2025 for increased shortness of breath and leg swollen. In the ED, the patient also complained of left elbow pain and declined imaging. Reports the pain has been there for a long time. Patient had an EKG that was unchanged from prior, cardiac enzymes with no significant elevation and a chest x-ray without any acute findings. Patient left without any treatments. Reports that he he has been taking 60 mg of torsemide in the morning and 40 mg in the evening, per cardiology. Per Cardiology notes, the patient was supposed to do this regimen for 2 days for increase leg swelling and was supposed to follow up. The plan was to increase the evening dose to 60 mg as well if the patient had no relief. The patient has not followed up with Cardiology. Patient reports that he was also recently seen by Nephrology due to his advanced chronic kidney disease. His creatinine was 4.7 and GFR 17 on his last labs in May. Reports that he was told that he will need dialysis most likely in the near future. He reports that his horse race timer told him to take torsemide 40 mg in the morning 40 mg in the evening because he was not aware that he was taking 60 mg in the morning in 40 mg in the evening. Essentially, according to the patient's daughter the horse race timer thought that he was increasing the torsemide. Hence, they stuck with the dosing recommendation from the seed pelleter was 60 mg in the morning and 40 mg in the evening. Discussed with the patient about dietary modifications. Per daughter, the patient has still been using salt on his food and does not watch his fluid intake strictly. On exam the patient continues to have +3-4 pitting edema in bilateral lower extremity, with the right slightly bigger than the left. Continues to have mild shortness of breath with exertion, slightly better than it was when he went to the emergency room, per patient. Reports that he did not wait on treatments in the emergency room because he was there for hours. The patient has not completed preordered labs for follow up appointment. He was encouraged to get these done may. [facility] Medical History Insomnia Hyperlipidemia Renal insufficiency syndrome Chronic obstructive pulmonary disease, unspecified Cardiac resynchronization therapy defibrillator (REQUIREMENTS MANAGER-D) in place Paroxysmal atrial fibrillation CKD (chronic kidney disease) History of prostate cancer History of COPD Hyperlipidemia Hypertension Pulmonary hypertension Congestive heart failure Atrial fibrillation Surgical History History of surgery on right wrist History of rotator cuff surgery Family History Mother No problems noted. Father No problems noted. Social History Household Members: None Housing: House Do you presently have visiting nurse or other home services: No Alcohol intake: current Alcohol intake frequency: a few times a month Patient Tobacco Use Status: Former Tobacco user Tobacco use type: Cigarette e-Cigarette/Vaping Use: Never Used Second Hand Smoke Exposure: No service: No Current occupational status: retired Cognitive needs: No Hearing needs: No Vision needs: Yes (reading glasses) Questionnaire Thrive Questionnaire Date Thrive assessed: 04/13/25 Currently or been in a relationship where the following occur: No concerns reported THRIVE Score: 0 ELOINA-7 AMB Questionnaire ELOINA-7 Date ELOINA - 7 assessed: 04/13/25 Source: Developed by Drs. Benitez Freitas, Chata Betancourt, Paxton Antonio and colleagues, with an educational alma from [employer]. Review of Systems Const Reports daytime sleepiness, Reports difficulty sleeping, Denies headache(s) and Reports snoring Eyes Denies loss of vision ENT Denies vertigo, Denies dizziness, Denies headache(s) and Denies sore throat Card Denies chest pain, Reports leg edema, Denies lightheadedness and Reports dyspnea (intermittently) Resp Denies cough, Denies hemoptysis, Reports dyspnea (intermittently), Reports snoring and Denies wheezing GI Denies abdominal pain, Denies melena, Denies constipation, Denies diarrhea and Denies vomiting Denies dysuria, Denies urinary frequency and Denies urinary urgency Musc Reports arthralgias (Left ankle and left elbow), Reports joint swelling (Left ankle + left elbow), Denies numbness and Denies tingling Neuro Denies Abnormal speech present, Denies behavioral changes, Denies vertigo, Denies dizziness, Denies headache(s), Denies loss of vision, Denies memory loss, Denies numbness and Denies tingling Psych Denies anxiety, Denies behavioral changes, Denies depression, Denies memory loss and Denies panic attacks Rajinder/Lymph Denies easy bleeding and Denies easy bruising Aller/Immun Denies wheezing Physical exam (Primary Care) Vital Signs: Last Vital Signs Temp 97.1 F 09/03/25 15:41 Pulse 69 09/03/25 15:41 Resp 18 09/03/25 15:41 BP 102/64 09/03/25 15:41 Pulse Ox 96 09/03/25 15:41 Oxygen Delivery Method Room Air 09/03/25 15:41 Tobacco/Smoking Status: Tobacco use Status Tobacco use date assessed 09/03/25 09/03/25 15:51 Patient Tobacco Use Status Former Tobacco user 09/03/25 15:51 Tobacco use type Cigarette 09/03/25 15:51 e-Cigarette/Vaping Use Never Used 09/03/25 15:51 Thrive Assessment: Date of Thrive Assessment Date Thrive assessed 04/13/25 09/03/25 15:51 Currently or been in a relationship where the following occur: No concerns reported Const General: healthy appearing, no acute distress, alert and awake Nutritional Appearance: well nourished Orientation/consciousness: oriented to person, oriented to place and oriented to time HENMT Ears: TM's normal bilaterally General nose exam: Normal nasal mucous membranes and turbinates present Eyes Conjunctivae: conjunctivae normal Sclerae: sclerae normal Pupils: Equal, round and reactive pupils present Neck Neck: Yes no lymphadenopathy and Yes no JVD Thyroid: Thyroid normal Carotids: no bruits Resp Effort & Inspection: normal respiratory effort and not tachypneic Auscultation: no crackles, no rales, no rhonchi, no wheezes and diminished lung sounds bilateral in the lower lung remy Cardio Rate: regular rate Rhythm: regular rhythm Heart sounds: S1 normal heart sound present, S2 normal heart sound present, no murmurs and normal S1 and S2 GI Palpation (GI): Soft to palpation, nontender, no hepatomegaly and no splenomegaly Auscultation: normal bowel sounds General: Yes no CVA tenderness Back/Spine/Pelvis Back: no CVA tenderness Skin General skin exam: no rashes or lesions noted and dry skin Neuro General: oriented to person, oriented to place and oriented to time Cranial nerves: Yes Equal, round and reactive pupils present Speech: No Abnormal speech present Gait exam (Neuro): Normal gait present Motor exam (neuro): no tremor noted Extrem Right upper extremity: full ROM Left upper extremity: full ROM Right lower extremity: full ROM, edema and lower leg Details: pitting edema Details: 4+ Left lower extremity: full ROM, edema, lower leg Details: pitting edema Details: 3+ and ankle Details: swelling Details: diffusely; no tenderness Psych Mental Status: mental status grossly normal Speech and movement: Normal speech and movement present Affect: normal affect Attitude: cooperative Thought process: Normal thought process present Coding Level of Care Code Est Pt Level 4 (90092) Diagnoses Asthma, unspecified asthma severity, unspecified whether complicated, unspecified whether persistent J45.909 Asthma severity: unspecified severity Asthma persistence: unspecified Asthma complication type: unspecified Chronic gout without tophus, unspecified cause, unspecified site M1A.9XX0 Gout site: unspecified site Gout etiology: unspecified cause Chronicity: chronic Presence of tophus: without tophus Renal insufficiency syndrome N28.9 Longstanding persistent atrial fibrillation I48.11 Atrial fibrillation type: longstanding persistent Hyperlipidemia, unspecified hyperlipidemia type E78.5 Hyperlipidemia type: unspecified Acute on chronic congestive heart failure, unspecified heart failure type I50.9 Heart failure type: unspecified Heart failure chronicity: acute on chronic Hypertension, unspecified type I10 Hypertension type: unspecified Other insomnia G47.09 Insomnia type: other insomnia Snoring R06.83 Apneic episode R06.81 Time Spent (min) 41 Assessment & Plan Assessment & Plan (1) Asthma: Code(s): J45.909 - Unspecified asthma, uncomplicated Category: Medical Qualifiers: Asthma severity: unspecified severity Asthma persistence: unspecified Asthma complication type: unspecified Qualified Code(s): J45.909 - Unspecified asthma, uncomplicated Plan: Reports intermittent shortness of breath that might be related to heart failure symptoms. He uses albuterol sulfate 90 mcg/actuation 1 puff inhalation QID prn (2) Gout: Code(s): M10.9 - Gout, unspecified Category: Medical Qualifiers: Gout site: unspecified site Gout etiology: unspecified cause Chronicity: chronic Presence of tophus: without tophus Qualified Code(s): M1A.9XX0 - Chronic gout, unspecified, without tophus (tophi) Plan: Complaining of left elbow and left ankle pain Denied imaging in the ED Reports the episodes are chronic and ongoing Encouraged completing ordered labs to evaluate uric acid levels Continue allopurinol 300 mg daily (3) Renal insufficiency syndrome: Code(s): N28.9 - Disorder of kidney and ureter, unspecified Category: Medical Plan: Patient is managed by [facility] care and [facility] services of [place]. Appears euvolemic on exam, stable weights at home. Estimated GFR 17 mL/min based upon serum creatinine level around 3.6 mg/dL. Historically, creatinine maira after reintroduction of Riccardo inhibitor raising suspicion of renal artery stenosis. Currently at 4.7 mg/dl. He is a prior smoker remotely, but renal duplex this summer was negative for renal artery stenosis. There was also no evidence of renal atrophy, cysts, stones or masses. Currently taking dapagliflozin 5 mg daily as SGLT2 inhibitor therapy per nephrology note. This medication is not on our medication list and the patient is not clear if he is taking the medication or not. Holding hydralazine, nitrate and carvedilol due to low BP Dosing meds for eGFR less than 15 mL/min There is plans for peritoneal dialysis in the future when indicated (4) Atrial fibrillation: Code(s): I48.91 - Unspecified atrial fibrillation Category: Medical Qualifiers: Atrial fibrillation type: longstanding persistent Qualified Code(s): I48.11 - Longstanding persistent atrial fibrillation Plan: Heart failure specific history. Reduced EF 15-25% 9 to in, complete heart block status post defibrillator, atrial fibrillation on apixaban, left bundle branch block and complete heart block status post REQUIREMENTS MANAGER in 2017. Cardiac catheterization on 07/27/2018 showed nonobstructive coronary disease Recurrent hospitalization for heart related issues. Most recent admission at [facility] [place] on 03/29-04/03 for treatment for AFib and CHF exacerbation. On that visit the patient Imdur, amlodipine and hydralazine were discontinued in the hospital Recent ER visit for heart failure symptoms. EKG, chest x-ray, and labs were reassuring. Patient left before treatment. Follow up with Cardiology as scheduled the (5) Hyperlipidemia: Code(s): E78.5 - Hyperlipidemia, unspecified Category: Medical Qualifiers: Hyperlipidemia type: unspecified Qualified Code(s): E78.5 - Hyperlipidemia, unspecified Plan: Labs on 04/17/2024 reviewed with the patient, total cholesterol 126, LDL 75, HDL 35-he has not completed preordered follow up labs. Encouraged the patient to get this done may to further evaluate Reinforced low-cholesterol diet Continue atorvastatin 40 mg daily Lipid panel ordered, encouraged to get this done as soon as possible (6) Congestive heart failure: Code(s): I50.9 - Heart failure, unspecified Category: Medical Qualifiers: Heart failure type: unspecified Heart failure chronicity: acute on chronic Qualified Code(s): I50.9 - Heart failure, unspecified Plan: Heart failure specific history. Reduced EF 15-25% 9 to in, complete heart block status post defibrillator, atrial fibrillation on apixaban, left bundle branch block and complete heart block status post REQUIREMENTS MANAGER in 2016. Cardiac catheterization on 07/27/2018 showed nonobstructive coronary disease Recurrent hospitalization for heart related issues. Echo TTE on 08/13/2022 LVEDD 6.5 cm, mild to moderate LVH with trabeculations of lateral wall and falls tendons LVEF 20-25% LA severe dilated Mild MR RV [id number] dilated, RV systolic function moderately reduced Recent ED visit for increased sob and BLE edema. EKG and CXR were non-acute and cardiac enzymes were reassuring. Increased torsemide to 60 mg twice daily-per cardiology recommendation from in May when his dose was increased to 60 mg a.m. and 40 mg p.m. for 2 days, with plans to increase to 60 mg b.i.d. if needed, via note review. Urge to follow up with cardiology may to let them know about this change. Discussed dietary modification and fluid restriction Continue daily weights, contact Cardiology if weight > 3 lb in 1-2 days or increased leg swelling Follow up with Cardiology as scheduled (Dr. Denis) (7) Hypertension: Code(s): I10 - Essential (primary) hypertension Category: Medical Qualifiers: Hypertension type: unspecified Qualified Code(s): I10 - Essential (primary) hypertension Plan: Blood pressure 102/78, within normal limits Reinforced low salt diet Continue carvedilol 6.25 mg b.i.d., lisinopril 5 mg daily, spironolactone 25 mg daily, torsemide increased 60 mg b.i.d. Patient was urged follow up with Cardiology (8) Insomnia: Code(s): G47.00 - Insomnia, unspecified Category: Medical Qualifiers: Insomnia type: other insomnia Qualified Code(s): G47.09 - Other insomnia Plan: Patient has a difficult to sleeping and was started on mirtazapine 15 mg at bedtime on his previous visit by nurse practitioner Stefani. Patient continues to complain of difficulty sleeping, questioning sleep apnea given his other symptoms. Ordered home sleep study. Patient no showed appointment for sleep study. (9) Snoring: Code(s): R06.83 - Snoring Category: Medical Plan: Sleep study was ordered. No showed appointment. (10) Apneic episode: Code(s): R06.81 - Apnea, not elsewhere classified Category: Medical Plan: Same as above Orders: Orders Uric Acid 09/03/25 M1A.9XX0 - Chronic gout, unspecified, without tophus (tophi) Medications: Changed From torsemide 40 mg (2 x 20 mg) PO BID 120 tabs 8RF To torsemide 60 mg (3 x 20 mg) PO BID 180 tabs 3RF 30 days
--- OUTSIDE RECORDS SUMMARY | 2025-09-03 16:48 | XMS_ITS | Clinical Summary ---
Author Organization [facility] ity Address [address] [place] [address] Care Team Providers Care Ebd Special Education Teacher Name Role Phone Unavailable Primary Care Provider [...] Tdap) 1959 Zoster Vaccines (1 of 2) 1990 RSV Immunization Adult Patients (1 - 1-dose 75+ series) 2015 Cholesterol Screening (Lipid Panel) 09/29/2022 Falls Risk Assessment 09/29/2022 Social Influencers of Health Screening 09/29/2022 Depression Screening 11/01/2024 Hypertension/CHF/CAD Annual BMP Blood Test 01/09/2025 COVID-19 Vaccine (3 - 2024-2 6 season) 2025 02/19/2021, 01/28/2021 Influenza Vaccine (#1) 2025 9, 09/12/2015 Pneumococcal [...]
--- OUTSIDE RECORDS SUMMARY | 2025-09-03 16:48 | XMS_ITS | Patient Health Record ---
Author Organization [facility] Address [address] [place] [id number] Care Team Providers Care Section Crews Activities Clerk Name Role Phone Petey Laughlin MD Primary Care Provider Unavailab Brian Pittman Jr Unavailable [phone] Rayo FROST, Agatha Unavailable Unavailable Reason For Referral No Information Medications Medication SIG (Take, Route, Frequency, Duration) Notes Start Date End Date Status Atorvastatin Calcium 40 MG 1 tablet Oral ly Once a day Active Torsemide 20 MG 1 tablet Orally Once a day Active Warfarin Sodium 5 MG 1 to 112 tablet Or ally Once a day/as directed [...] Problem Status W/U Status Risk Notes Problem Radiation proctitis ([id number]) 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 [address] [place] [address] [phone] [id number] VERONICA JOHNSON Self - patient is the [...]
== END 2025-09-03 16:40 | disposition home or self-care (01) ==
LOC: HO.HMCH 15:36
DX: J45.909 Unspecified asthma, uncomplicated (principal); M1A.9XX0 Chronic gout, unspecified, without tophus (tophi); N28.9 Disorder of kidney and ureter, unspecified; I48.11 Longstanding persistent atrial fibrillation; E78.5 Hyperlipidemia, unspecified; I50.9 Heart failure, unspecified; I10 Essential (primary) hypertension; G47.09 Other insomnia; R06.83 Snoring; R06.81 Apnea, not elsewhere classified

== ENCOUNTER → 2025-09-03 15:36 | Outpatient (BNVA) | payer MEDICARE, SELFPAY | DX: J45.909 Unspecified asthma, uncomplicated (principal); M1A.9XX0 Chronic gout, unspecified, without tophus (tophi); N28.9 Disorder of kidney and ureter, unspecified; I48.11 Longstanding persistent atrial fibrillation; E78.5 Hyperlipidemia, unspecified; I11.0 Hypertensive heart disease with heart failure; I50.9 Heart failure, unspecified; G47.09 Other insomnia; R06.83 Snoring; R06.81 Apnea, not elsewhere classified | CPT/HCPCS: 99212 ==

== ENCOUNTER 2025-10-17 16:22 | Outpatient (AMB) | payer MEDICARE, SELFPAY ==
--- OUTSIDE RECORDS SUMMARY | 2025-10-11 23:59 | XMS_ITS | Continuity of Care Document ---
Author Organization [facility] Address [address] [place] [address]- Care Team Providers Care Casino Cashier Name Role Phone August MANDUJANO, Laron Masters Primary Care Physicia n Encounter [facility] Date(s): 09/11/25 - 10/11/25 [facility] [address] [place] [phone]- Encounter Type: Triage Allergies, Adverse Reactions, Alerts [...] 3 Refills, Maintenance, Tablet, Route toPharmacy Electronically, [id number], [facility] 1967 Start Date: 07/29/18 Stop Date: 11/26/18 Status: Ordered Medication Dispense Status: Completed Quantity: 30.0 Unit: tablet Total Allowed Fills: 4 Fills Dispensed: 0 Eliquis 2.5 mg oral tablet 1 tablet, By Mouth, 2 times a day, # 60 tablet, 11 Refills, Maintenance, 09/11/25 4:31:00 PM EST, [facility] 1967, 180, cm, 09/05/25 14:44:00 EST, Height, 72.7, kg, 08/08/25 21:01:00 EDT, Dry Weight Start Date: 09/11/25 Status: Ordered Medication Dispense Status: Completed Quantity: 60.0 Unit: tablet Total Allowed Fills: 12 Fills Dispensed: 0 hydrALAZINE 50 mg oral [...] Total Allowed Fills: 1 Fills Dispensed: 0 tamsulosin 0.4 mg oral capsule 0.4 mg, By Mouth, Daily, # 30 tablet, Refills 2, Tot. Refills 2, Maintenance, 07/29/18 1:22:37 PM EDT, Route to Pharmacy Electronically, [facility] Start Date: 07/29/18 Stop Date: 10/27/18 Status: Ordered Medication Dispense Status: Completed Quantity: 30.0 Unit: tablet Total Allowed Fills: 3 Fills Dispensed: 0 torsemide 20 mg oral tablet 4 tablet = 80 mg, By Mouth, 2 times a day, # 240 tablet, 4 Refills, Maintenance, 10/03/25 11:34:00 AM EST, [facility] 1967, 180, cm, 10/03/25 7:46:00 EST, Height, 75, kg, 10/01/25 14:40:00 EST, Dry Weight Start Date: 10/03/25 Stop Date: 03/02/26 Status: Ordered Medication Dispense Status: Completed Quantity: 240.0 Unit: tablet Total Allowed Fills: 5 Fills [...] 9:29:00 AM EDT, Route to Pharmacy Electronically, [facility] 1966, Partial fill upon patient request if the prescription is for a schedule II opioid drug., 180, cm, 254:51:00 EDT, Height, 74, kg, 05/03/25 4:51:00 EDT, Dry Weight Start Date: 05/03/25 Status: Ordered Medication Dispense Status: Completed Quantity: 60.0 Unit: tablet Total Allowed Fills: 1 Fills Dispensed: 0 Problem List Condition Confirmation Course Effective Dates Status Health Status Informant Cardiac resynchronization therapy defibrillator (SYSTEMS ANALYST ENGINEER-D) in place Confirmed Active Nonischemic cardiomyopathy Confirmed Active Anjum-Matthews breathing Confirmed Active COPD (chronic obstructive pulmonary disease) Confirmed Active CKD stage 4 Confirmed Active Complete heart block Confirmed Active CAD in [place] artery Confirmed Active Gout Confirmed Active Heart [...] Team Personnel Name: Constance Albarran RN Position: [facility] RN Member Role: Primary Care Nurse Name: Shakila Blanco RN Position: [facility] RN Member Role: Primary Care Nurse Name: Bethany Eli Position: [facility] RN Supv Member Role: Primary Care Nurse Name: Carline Joel RN Position: [facility] RN Member Role: Primary Care Nurse Name: Sruthi Gorman RN Position: [facility] AMB Nurse Member Role: Primary Care Nurse Name: Laverne Staples RN Position: [facility] RN Member Role: Primary Care Nurse Name: Frieda Rodriguez Position: [facility] Outreach Member Role: Lifetime Consulting Physician Name: Yanelis Lopez RN Position: [facility] RN Member Role: Primary Care Nurse Name: Barbara Putnam RN Position: [facility] RN Member Role: Primary Care Nurse Name: Judd Servin RN Position: S RN Member Role: Primary Care Nurse Name: Yeison Lucas RN Position: S RN Member Role: Primary Care Nurse Name: Nirmal May RN Position: S RN Member Role: Primary Care Nurse Name: Tanisha Anderson NP Position: [facility] Associate Professional Member Role: Lifetime Consulting Provider Address: [address] [place] [address] [address]E [facility] [address] Telecom: Name: Kenton Moses MD Position: [facility] Renal MD Member Role: Lifetime Consulting Physician Address: [address] [place], [place] [address]E [facility] [address] Telecom: Name: Luis Quintanilla DO Position: [facility] Renal MD Member Role: Lifetime Consulting Physician Address: [address] [place] [address] [address]E [facility] [address] Telecom: Name: Arely Herrera LPN Position: [facility] RN Member Role: Primary Care Nurse Name: Radha Huizar RN Position: [facility] RN Member Role: Primary Care Nurse Name: Tiffani Pérez RN Position: [facility] RN Member Role: Primary Care Nurse Name: Agatha Galvin RN Position: [facility] RN Member Role: Primary Care Nurse Name: Lizzy Gaffney RN Position: [facility] RN Member Role: Primary Care Nurse Name: Bonnie Pierre Position: [facility] RN Member Role: Primary Care Nurse Name: Nilam John RN Position: [facility] RN Member Role: Primary Care Nurse Name: Lizzy Manrique Position: S Outreach Member Role: Lifetime Consulting Physician Name: Rosalina Goel NP Position: Reference Physician Member Role: Primary Care Nurse Address: [place], [place] [address] Telecom: Name: Blanca Higginbotham RN Position: [facility] RN Member Role: Primary Care Nurse Name: Agatha Perez RN Position: [facility] RN Member Role: Primary Care Nurse Name: Laron Koch NP Position: Reference Physician Member Role: PCP Address: [address] [place] [phone]- Telecom: Care Team Related Persons Name: FRANCHESCA JOHNSON Name: JAIR JOHNSON Name: TIANA HOWARD Name: LEE, NILAM Name: NO, ONE Insurance Providers Guarantor name: VERONICA JOHNSON Health Plan Information #: 1 Payer: [facility] [employer] H[facility] Payer Identifier: NA Member Number: [id number] Group Number: [id number] Subscriber Identifier: NA Relationship to Subscriber: self Coverage Type: NA Coverage Verification Date: NA Telecom: NA Address: NA Health Plan Information #: 2 [facility] Payer Identifier: NA Member Number: [id number] Group Number: [id number] Subscriber Identifier: NA Relationship to Subscriber: self Coverage Type: NA Coverage Verification Date: NA Telecom: NA Address: NA
--- NOTE | 2025-10-17 16:23 | A.OFFPC_ITS ---
Vital Signs 10/17/25 16:24 Height 6 ft BMI Reason not done Patient refused/unable BP 98/64 Blood Pressure Location Lt brachial Position Sitting Respiration 18 Pulse 60 Pulse Source Pulse Oximeter Temp Source Temporal Artery Scan Pulse Oximetry (%) 99 Oxygen Delivery Method Room Air Intake Visit Reasons: bilateral feet ulcers, unable to walk;pain Land Surveyor Required: No Accompanied by: Self / Same As Patient Allergies No Known Allergies (No Known Allergies*) Allergy (Unknown, Verified 10/17/25 16:46) Medication List - Last Reconciled 10/17/25 by BERLIN Ma albuterol sulfate 90 mcg/actuation (ProAir HFA) 1 puff inhalation QID PRN allopurinol 300 mg PO DAILY amiodarone 200 mg PO DAILY apixaban (Eliquis) 2.5 mg PO BID atorvastatin 40 mg PO DAILY 90 days carvedilol 6.25 mg PO BID lisinopril 5 mg PO DAILY metolazone 5 mg orally two times a week; mirtazapine 15 mg PO BEDTIME spironolactone 25 mg PO DAILY tamsulosin 0.4 mg PO DAILY torsemide 80 mg PO BID tramadol 50 mg PO BID PRN Tobacco use date assessed: 10/17/25 Fall risk assessment: No Falls in past year Last assessed Fall Risk: 10/17/25 Dental Screening Dental Screen Date: 10/17/25 Did you have a dental visit in the last 12 months?: No Did you have a dental problem in the last 6 months where you did not have access to dental care?: No Was dental information given to patient?: No HPI bilateral feet ulcers, unable to walk;pain HPI Details The patient is an 85 year old male presenting for evaluation of sores on his legs, inability to walk, and to discuss the need for increased home care. The patient is wheelchair bound at visit, and he was accompanied by his daughter. The patient's daughter reports that the patient developed sores on right lower leg, which were initially small about three weeks ago after a hospitalization but have since enlarged. These open areas are thought to be from the significant lower extremity swelling. The patient is unable to walk due to severe pain and weakness in his legs. The pain affects both ankles but is more pronounced on the right side, which also more swollen. He also reports a lack of strength to stand on his own and an inability to maintain his balance. In the past, he experienced very swollen and painful wrists and elbows, which was possibly due to gout, for which he takes allopurinol. Additionally, the patient has developed bowel incontinence, described as a clear mucus, and urinary incontinence. His appetite has diminished, and he feels full after eating small amounts, which is thought to be secondary to fluid overload. The patient is requesting assistance with ADLs and help around the house as well. Due to the pain and swelling in his ankle he is unable to get to the bathroom on time. He is unable to prepare meals. The patient would like to see if there is any services available to assist him. For pain, he has been taking Advil or Aleve, as Tylenol is ineffective. A nurse visits once a week to fill his medication boxes and wrap his legs with RAIZA bandages. 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 Recent lab work has not been completed because he has been unwell for the past couple of weeks. [facility] Medical History (Updated 10/17/25 @ 18:51 by BERLIN Ma) Insomnia Hyperlipidemia Renal insufficiency syndrome Chronic obstructive pulmonary disease, unspecified Cardiac resynchronization therapy defibrillator (SENIOR MECHANICAL ESTIMATOR-D) in place Paroxysmal atrial fibrillation CKD (chronic kidney disease) History of prostate cancer History of COPD Hyperlipidemia Hypertension Pulmonary hypertension Congestive heart failure Atrial fibrillation Surgical History History of surgery on right wrist History of rotator cuff surgery Family History Mother No problems noted. Father No problems noted. Social History Household Members: None Housing: House Do you presently have visiting nurse or other home services: No Alcohol intake: current Alcohol intake frequency: a few times a month Patient Tobacco Use Status: Former Tobacco user Tobacco use type: Cigarette e-Cigarette/Vaping Use: Never Used Second Hand Smoke Exposure: No service: No Current occupational status: retired Cognitive needs: No Hearing needs: No Vision needs: Yes (reading glasses) Questionnaire Thrive Questionnaire Date Thrive assessed: 10/17/25 I am a: Patient What is your living situation today?: I have a steady place to live Within the past 12 months, did the food you bought not last and you didn't have the money to get more?: Never true Within the past 12 months, did you worry whether your food would run out before you got money to buy more?: Never true Do you have trouble paying for medicines?: No Do you have trouble getting transportation to medical appointments?: No Do you have trouble paying your heating and electricity bill?: Yes Do you have trouble taking care of your child, family member or friend?: No Do you have trouble with day-to-day activities such as bathing, preparing meals, shopping, managing finances, etc.?: I choose not to answer this question Are you currently unemployed and looking for a job?: No Are you interested in more education?: No Currently or been in a relationship where the following occur: No concerns reported THRIVE Score: 1 ELOINA-7 AMB Questionnaire ELOINA-7 Date ELOINA - 7 assessed: 04/13/25 Source: Developed by Drs. Benitez Freitas, Chata Betancourt, Paxton Antonio and colleagues, with an educational alma from [employer]. Review of Systems Const Reports daytime sleepiness, Reports difficulty sleeping, Denies headache(s) and Reports snoring Eyes Denies loss of vision ENT Denies vertigo, Denies dizziness, Denies headache(s) and Denies sore throat Card Denies chest pain, Reports leg edema (Bilateral), Denies lightheadedness and Reports dyspnea (intermittently) Resp Denies cough, Denies hemoptysis, Reports dyspnea (intermittently), Reports snoring and Denies wheezing GI Denies abdominal pain, Denies melena, Denies constipation, Denies diarrhea and Denies vomiting Denies dysuria, Denies urinary frequency and Denies urinary urgency Musc Reports arthralgias (both ankles), Reports joint swelling (both ankles), Denies numbness and Denies tingling Skin/Breast Reports wounds (Small open areas on right lower extremity) Neuro Denies Abnormal speech present, Denies behavioral changes, Denies vertigo, Denies dizziness, Denies headache(s), Denies loss of vision, Denies memory loss, Denies numbness and Denies tingling Psych Denies anxiety, Denies behavioral changes, Denies depression, Denies memory loss and Denies panic attacks Rajinder/Lymph Denies easy bleeding and Denies easy bruising Aller/Immun Denies wheezing Physical exam (Primary Care) Vital Signs: Last Vital Signs Pulse 60 10/17/25 16:24 Resp 18 10/17/25 16:24 Pulse Ox 99 10/17/25 16:24 Oxygen Delivery Method Room Air 10/17/25 16:24 Tobacco/Smoking Status: Tobacco use Status Tobacco use date assessed 10/17/25 10/17/25 16:27 Patient Tobacco Use Status Former Tobacco user 10/17/25 16:27 Tobacco use type Cigarette 10/17/25 16:27 e-Cigarette/Vaping Use Never Used 10/17/25 16:27 Thrive Assessment: Date of Thrive Assessment Date Thrive assessed 10/17/25 10/17/25 16:27 Currently or been in a relationship where the following occur: No concerns reported Const General: healthy appearing, no acute distress, alert and awake Nutritional Appearance: well nourished Orientation/consciousness: oriented to person, oriented to place and oriented to time HENMT Ears: hearing grossly normal bilaterally General nose exam: Normal external nose present Eyes Conjunctivae: conjunctivae normal Sclerae: sclerae normal Pupils: Equal, round and reactive pupils present Neck Neck: Yes no lymphadenopathy and Yes no JVD Thyroid: Thyroid normal Carotids: no bruits Resp Effort & Inspection: normal respiratory effort and not tachypneic Auscultation: no crackles, no rales, no rhonchi, no wheezes and diminished lung sounds bilateral in the lower lung remy Cardio Rate: regular rate Rhythm: regular rhythm Heart sounds: S1 normal heart sound present, S2 normal heart sound present, no murmurs and normal S1 and S2 GI Palpation (GI): Soft to palpation, nontender, no hepatomegaly and no splenomegaly Auscultation: normal bowel sounds General: Yes no CVA tenderness Back/Spine/Pelvis Back: no CVA tenderness Skin General skin exam: dry skin Wounds: wounds noted (Two small scabbed over areas to right tristan) Neuro General: oriented to person, oriented to place and oriented to time Cranial nerves: Yes Equal, round and reactive pupils present Speech: No Abnormal speech present Gait exam (Neuro): Normal gait present Motor exam (neuro): no tremor noted Extrem Right upper extremity: full ROM Left upper extremity: full ROM Right lower extremity: full ROM, edema, lower leg Details: pitting edema Details: 4+ and ankle Details: tenderness and swelling Left lower extremity: full ROM, edema, lower leg Details: pitting edema Details: 3+ and ankle Details: tenderness and swelling Details: diffusely Psych Mental Status: mental status grossly normal Speech and movement: Normal speech and movement present Affect: normal affect Attitude: cooperative Thought process: Normal thought process present Coding Level of Care Code Est Pt Level 4 (32529) Diagnoses Bilateral ankle pain, unspecified chronicity M25.571; M25.572 Chronicity: unspecified Mucus in stool R19.5 Other fecal abnormalities R19.5 Acute on chronic congestive heart failure, unspecified heart failure type I50.9 Heart failure type: unspecified Heart failure chronicity: acute on chronic Hypertension, unspecified type I10 Hypertension type: unspecified Impaired mobility and ADLs Z74.09; Z78.9 Ulcer of right lower extremity, limited to breakdown of skin L97.911 Non-pressure ulcer stage: limited to breakdown of skin Time Spent (min) 43 Assessment & Plan Assessment & Plan (1) Bilateral ankle pain: Code(s): M25.571 - Pain in right ankle and joints of right foot; M25.572 - Pain in left ankle and joints of left foot Category: Medical Qualifiers: Chronicity: unspecified Qualified Code(s): M25.571 - Pain in right ankle and joints of right foot; M25.572 - Pain in left ankle and joints of left foot Plan: The patient's severe bilateral leg pain and weakness, which prevents him from walking, is of uncertain etiology, with suspicion for a gout flare versus arthritis. To investigate the cause, blood work and bilateral ankle x-rays will be ordered. The patient was advised to discontinue NSAIDs (Advil, Aleve) due to the risk of kidney damage. Tramadol will be prescribed to be taken twice daily as needed for pain, as it is a safer alternative given his renal history. (2) Mucus in stool: Code(s): R19.5 - Other fecal abnormalities Category: Medical Plan: Stool sample ordered for leukocytes ova and parasite for further evaluation. (3) Other fecal abnormalities: Code(s): R19.5 - Other fecal abnormalities Category: Medical Plan: Stool sample ordered for leukocytes ova and parasite for further evaluation. (4) Congestive heart failure: Code(s): I50.9 - Heart failure, unspecified Category: Medical Qualifiers: Heart failure type: unspecified Heart failure chronicity: acute on chronic Qualified Code(s): I50.9 - Heart failure, unspecified Plan: Peripheral edema continues. Breath sounds clear and diminished in the bases. Ongoing shortness of breath with exertion. Continue torsemide 80 mg b.i.d., metolazone 5 mg 2 times a week. Follow up with Cardiology as scheduled (5) Hypertension: Code(s): I10 - Essential (primary) hypertension Category: Medical Qualifiers: Hypertension type: unspecified Qualified Code(s): I10 - Essential (primary) hypertension Plan: Blood pressure 98/64. Continue carvedilol 6.25 mg b.i.d., lisinopril 5 mg daily, spironolactone 25 mg daily, the torsemide 80 mg b.i.d., the toes alone 5 mg 2 times a week. Reinforced low-salt diet (6) Impaired mobility and ADLs: Code(s): Z74.09 - Other reduced mobility; Z78.9 - Other specified health status Category: Medical Plan: The patient is experiencing significant functional decline, including an inability to walk, stand independently, and incontinence of both bowel and bladder, necessitating [id number] care. A referral for a home care assessment will be provided. The patient's family was instructed to contact his insurance company, [employer], to identify in-network home care agencies that can provide sufficient hours of care. The clinic's community navigator will also be engaged to assist in securing services. (7) Ulcer of right leg: Code(s): L97.919 - Non-pressure chronic ulcer of unspecified part of right lower leg with unspecified severity Category: Medical Qualifiers: Non-pressure ulcer stage: limited to breakdown of skin Qualified Code(s): L97.911 - Non-pressure chronic ulcer of unspecified part of right lower leg limited to breakdown of skin Plan: The patient's significant edema is likely due to his underlying heart condition, leading to increased pressure and subsequent skin ulcerations. He will continue his current diuretic regimen, including torsemide 80 mg twice daily and metolazone. Management includes consistent leg elevation and the use of RAIZA bandages for compression. Open areas to right lower leg has scabbed over. Orders: Orders Leukocytes Stool Qualitative Today R19.5 - Other fecal abnormalities Ova and Parasite Today R19.5 - Other fecal abnormalities Prothrombin Time INR Today R19.5 - Other fecal abnormalities Gamma Glutamyl Transpeptidase Today R19.5 - Other fecal abnormalities Medications: Changed From torsemide 60 mg (3 x 20 mg) PO BID 30 days 180 tabs 3RF To torsemide 80 mg PO BID
[2025-10-17 16:24] VITALS: BP 98/64; PULSE 60; RESP 18; O2SAT 99
--- OUTSIDE RECORDS SUMMARY | 2025-10-17 20:56 | XMS_ITS | Encounter Summary ---
Author Organization [facility] Address [address] [place] [address] Phone Care Team Providers Care Technology Administrator Name Role Phone Wolfgang Alcala MD Primary Care Provider [phone] Encounter Details Date Type Department Care Team (Late st Contact Info) Description 01/30/2025 Documentation Only [facility] [address] [place] [address] Luis Quintanilla DO [address] [place] [address] Social History Tobacco Use Types [...] Care Team (Late st Contact Info) Description 10/18/2025 4:00 PM EST Office Visit [facility] [address] [place] [address] Luis Quintanilla DO [address] [place] [address] 11/20/2025 2:00 PM EST Clinical Support [facility] [address] [place] [address] documented as of this encounter Visit Diagnoses Not on filedocumented in this encounter Care Teams Technology Administrator Relationship Specialty Start Date End Date Wolfgang Alcala MD [address] [place], [place] PCP - General Internal Medicine 09/08/21 documented as of this encounter
--- OUTSIDE RECORDS SUMMARY | 2025-10-17 20:57 | XMS_ITS | Encounter Summary ---
Author Organization [facility] Address [address] [place] [address] Phone Care Team Providers Care Senior Front End Web Developer Name Role Phone Wolfgang Alcala MD Primary Care Provider [phone] Encounter Details Date Type Department Care Team (Late Contact Info) Description 10/16/2025 Telephone [facility] [address] [place] [phone] Radha Ramos [place] [address] [place] [phone] Social History Tobacco Use Types Packs/Day Years [...] on file documented as of this encounter Miscellaneous Notes * Telephone Encounter - Radha Raoms [place] - 10/16/2025 4:10 PM EST Left message for Nilam to call to chioma Mosley's appt. documented in this encounter Plan of Treatment Upcoming Encounters Date Type Department Care Team (Late Contact Info) Description 10/18/2025 4:00 PM EST Office Visit [facility] [address] [place] [phone] Luis Quintanilla, DO [address] [place] [address] 11/20/2025 2:00 PM EST Clinical Support [facility] [address] [place] [address] documented as of this encounter Visit Diagnoses Not on filedocumented in this encounter Care Teams Senior Front End Web Developer Relationship Specialty Start Date End Date Wolfgang Alcala MD [address] [place], [place] PCP - General Internal Medicine 09/08/21 documented as of this encounter
--- OUTSIDE RECORDS SUMMARY | 2025-10-17 20:57 | XMS_ITS | Encounter Summary ---
Author Organization [facility] Address [address] [place] [address] Phone Care Team Providers Care Delivery Assistant Name Role Phone Wolfgang Alcala MD Primary Care Provider [phone] Encounter Details Date Type Department Care Team (Late st Contact Info) Description 09/04/2025 Documentation Only [facility] [address] [place] [address] Frieda Rodriguez [address] [place] [phone] Social History Tobacco Use Types Packs/Day Years [...] Visit [facility] [address] [place] [address] Luis Quintanilla DO [address] [place] [phone] 11/20/2025 2:00 PM EST Clinical Support [facility] [place] [facility] [address] [place] [address] documented as of this encounter Visit Diagnoses Not on filedocumented in this encounter Care Teams Delivery Assistant Relationship Specialty Start Date End Date Wolfgang Alcala MD [address] [place] PCP - General Internal Medicine 09/08/21 documented as of this encounter
--- OUTSIDE RECORDS SUMMARY | 2025-10-17 20:57 | XMS_ITS | Clinical Summary ---
Author Organization [facility] ity Address [address] [place] [address] Care Team Providers Care Supervisor Fabrication Department Name Role Phone Unavailable Primary Care Provider [...]
--- OUTSIDE RECORDS SUMMARY | 2025-10-17 20:57 | XMS_ITS | Encounter Summary ---
Author Organization [facility] [place], Address [address] [place] [address] Phone Care Team Providers Care Armhole Presser Name Role Phone Wolfgang Alcala MD Primary Care Provider [phone] Encounter Details Date Type Department Care Team (Late st Contact Info) Description 09/27/2024 Documentation Only [facility] [place], [address] [place] [address] Luis Quintanilla DO [address] [place] [address] Social History Tobacco Use Types Packs/Day Years [...] on file documented as of this encounter Functional Status * BP Answer Date of Assessment Author 120/64 09/27/2024 2:50 PM EST Tammie Quintanilla, DO * Pulse Answer Date of Assessment Author 68 09/27/2024 2:50 PM EST Tammie Quintanilla, DO * Weight Answer Date of Assessment Author [id number]/27/2024 2:50 PM EST Tammie Quintanilla, DO * BP Answer Date of Assessment Author 120/64 09/27/2024 2:50 PM EST Tammie Quintanilla, DO * Weight Answer Date of Assessment Author [id number]/27/2024 2:50 PM EST Tammie Quintanilla DO documented as of this encounter Plan of Treatment Upcoming Encounters Date Type Department Care Team (Late st Contact Info) Description 10/18/2025 4:00 PM EST Office Visit [facility] [address] [place] [phone] Luis Quintanilla DO [address] [place] [phone] 11/20/2025 2:00 PM EST Clinical Support [facility] [address] [place] [address] documented as of this encounter Visit Diagnoses Not on filedocumented in this encounter Care Teams Armhole Presser Relationship Specialty Start Date End Date Wolfgang Alcala MD [address] [place], [place] PCP - General Internal Medicine 09/08/21 documented as of this encounter
--- OUTSIDE RECORDS SUMMARY | 2025-10-17 20:57 | XMS_ITS | Encounter Summary ---
Author Organization [facility] Address [address] [place] [address] Phone Care Team Providers Care Planimeter Operator Name Role Phone Wolfgang Alcala MD Primary Care Provider [phone] Encounter Details Date Type Department Care Team (Late Contact Info) Description 04/27/2025 Documentation Only [facility] [address] [place] [address] Frieda Rodriguez [address] [place] [phone] Social History Tobacco Use Types Packs/Day Years [...] Visit [facility] [address] [place] [address] Luis Quintanilla DO [address] [facility] [address] [place] [address] 11/20/2025 2:00 PM EST Clinical Support [facility] [place] [facility] [address] [place] [address] documented as of this encounter Visit Diagnoses Not on filedocumented in this encounter Care Teams Planimeter Operator Relationship Specialty Start Date End Date Wolfgang Alcala MD [address] [place] PCP - General Internal Medicine 09/08/21 documented as of this encounter
--- OUTSIDE RECORDS SUMMARY | 2025-10-17 20:57 | XMS_ITS | Encounter Summary ---
Author Organization [facility] Address [address] [place] [address] Phone Care Team Providers Care Corporate Quality Manager Name Role Phone Wolfgang Alcala MD Primary Care Provider [phone] Encounter Details Date Type Department Care Team (Late Contact Info) Description 04/27/2025 Documentation Only [facility] [address] [place] [address] Frieda Rodriguez [address] [place] [phone] Social History Tobacco Use Types Packs/Day Years [...] Visit [facility] [address] [place] [address] Luis Quintanilla DO [address] [facility] [address] [facility] [place] [address] 11/20/2025 2:00 PM EST Clinical Support [facility] [place] [facility] [address] [place] [address] documented as of this encounter Visit Diagnoses Not on filedocumented in this encounter Care Teams Corporate Quality Manager Relationship Specialty Start Date End Date Wolfgang Alcala MD [address] [place] PCP - General Internal Medicine 09/08/21 documented as of this encounter
--- OUTSIDE RECORDS SUMMARY | 2025-10-17 20:57 | XMS_ITS | Encounter Summary ---
Author Organization [facility] Address [address] [place] [address] Phone Care Team Providers Care Blackener Name Role Phone Wolfgang Alcala MD Primary Care Provider [phone] Encounter Details Date Type Department Care Team (Late Contact Info) Description 06/03/2023 Documentation Only [facility] [address] [place] [address] Luis Quintanilla DO [address] [facility] [address] [facility] [place] [address] Social History Tobacco Use Types [...] Visit [facility] [address] [place] [address] Luis Quintanilla DO [address] [facility] [place] [address] 11/20/2025 2:00 PM EST Clinical Support [facility] [address] [address] documented as of this encounter Visit Diagnoses Not on filedocumented in this encounter Care Teams Blackener Relationship Specialty Start Date End Date Wolfgang Alcala MD [address] [place], [place] PCP - General Internal Medicine 09/08/21 documented as of this encounter
--- OUTSIDE RECORDS SUMMARY | 2025-10-17 20:57 | XMS_ITS | Patient Health Record ---
Author Organization [facility] Address [address] [place] [address] Care Team Providers Care Table Runner Name Role Phone Petey Laughlin MD Primary Care Provider UnavailBrian Hannah Jr Unavailable Agatha Cade MD Unavailable Unavailable Reason For Referral No Information Medications Medication SIG (Take, Route, Frequency, Duration) Notes Start Date End Date Status Atorvastatin Calcium 40 MG Tablet 1 tablet Orally Once a day Active Torsemide 20 MG Tablet 1 tablet Orally O nce a day Active Warfarin Sodium 5 MG Tablet 1 to 09/02 ta blet Orally Once a day/as directed Active Carvedilol 6.25 MG Tablet 2 Orally BID Active Colocort 100 MG/60ML Enema 1 as directie d Rectal in the evening 12/01/2017 Active Tamsulosin HCl 0.4 MG Capsule 1 capsule Orally Once a day Active Social History Social History Drugs/Alcohol: Social Info Question Answer Notes Alcohol Screen Did you have a drink containing alcohol in the past year? Yes How often did you have a drink containing alcohol in the past year? Monthly or less (1 point) How many drinks did you have on a typical day when you were drinking in the past year? 1 or 2 drinks (0 point) How often did you have 6 or more drinks on one occasion in the past year? 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 [address] [place] [address] [phone] [id number] VERONICA JOHNSON Self - patient is the [...]
--- OUTSIDE RECORDS SUMMARY | 2025-10-17 20:57 | XMS_ITS | Encounter Summary ---
Author Organization [facility] Address [address] [place] [address] Phone Care Team Providers Care Veterans Employment Representative Name Role Phone Wolfgang Alcala MD Primary Care Provider [phone] Encounter Details Date Type Department Care Team (Late st Contact Info) Description 10/05/2025 Documentation Only [facility] [address] [place] [address] Frieda Rodriguez [address] [place] [phone] Social History Tobacco Use Types Packs/Day Years [...] Services Of [facility] [address] [place] [address] Luis Quintanilla DO [address] [place] [phone] 11/20/2025 2:00 PM EST Clinical Support [facility] [place] [facility] [address] [place] [address] documented as of this encounter Visit Diagnoses Not on filedocumented in this encounter Care Teams Veterans Employment Representative Relationship Specialty Start Date End Date Wolfagng Alcala MD [address] [place] PCP - General Internal Medicine 09/08/21 documented as of this encounter
--- OUTSIDE RECORDS SUMMARY | 2025-10-17 20:57 | XMS_ITS | Encounter Summary ---
Author Organization [facility] Address [address] [place] [address] Phone Care Team Providers Care Event Staff Name Role Phone Wolfgang Alcala MD Primary Care Provider [phone] Encounter Details Date Type Department Care Team (Late st Contact Info) Description 11/16/2023 Documentation Only [facility] [address] [place] [address] Luis Quintanilla DO [address] [facility] [address] [address] [place] [address] Social History Tobacco Use Types [...] Visit [facility] [address] [place] [address] Luis Quintanilla DO [address] [facility] [address] [place] [address] 11/20/2025 2:00 PM EST Clinical Support [facility] [address] [place] [address] documented as of this encounter Visit Diagnoses Not on filedocumented in this encounter Care Teams Event Staff Relationship Specialty Start Date End Date Wolfgang Alcala MD [address] [place], [place] PCP - General Internal Medicine 09/08/21 documented as of this encounter
--- OUTSIDE RECORDS SUMMARY | 2025-10-17 20:57 | XMS_ITS | Encounter Summary ---
Author Organization [facility] Address [address] [place] [address] Phone Care Team Providers Care Lobby Porter Name Role Phone Wolfgang Alcala MD Primary Care Provider [phone] Encounter Details Date Type Department Care Team (Late Contact Info) Description 04/27/2025 Documentation Only [facility] [address] [place] [address] Frieda Rodriguez [address] [place] [phone] Social History Tobacco Use Types Packs/Day Years [...] Visit [facility] [address] [place] [address] Luis Quintanilla DO [address] [facility] [place] [address] 11/20/2025 2:00 PM EST Clinical Support [facility] [place] [facility] [address] [place] [address] documented as of this encounter Visit Diagnoses Not on filedocumented in this encounter Care Teams Lobby Porter Relationship Specialty Start Date End Date Wolfgang Alcala MD [address] [place] PCP - General Internal Medicine 09/08/21 documented as of this encounter
--- OUTSIDE RECORDS SUMMARY | 2025-10-17 20:57 | XMS_ITS | Encounter Summary ---
Author Organization [facility] Address [address] [place] [address] Phone Care Team Providers Care Orthopedics Pediatric Physician Name Role Phone Wolfgang Alcala MD Primary Care Provider [phone] Encounter Details Date Type Department Care Team (Late st Contact Info) Description 09/29/2024 Telephone [facility] [address] [place] [address] Tessie Matias Social History Tobacco Use Types Packs/Day Years [...] Visit [facility] [address] [place] [address] Luis Quintanilla DO [address] [facility] [place] [address] 11/20/2025 2:00 PM EST Clinical Support [facility] [place] [facility] [address] [address] documented as of this encounter Visit Diagnoses Diagnosis Chronic kidney disease, stage 4 (severe) (HCC) Chronic systolic heart failure (HCC) Chronic systolic heart failure documented in this encounter Care Teams Orthopedics Pediatric Physician Relationship Specialty Start Date End Date Wolfgang Alcala MD [address] [place], [place] PCP - General Internal Medicine 09/08/21 documented as of this encounter
--- OUTSIDE RECORDS SUMMARY | 2025-10-17 20:57 | XMS_ITS | Encounter Summary ---
Author Organization [facility] Address [address] [place] [address] Phone Care Team Providers Care Professional Programmer Analyst Name Role Phone Wolfgang Alcala MD Primary Care Provider [phone] Encounter Details Date Type Department Care Team (Late st Contact Info) Description 05/18/2024 Documentation Only [facility] [address] [place] [place] [address] Luis Quintanilla DO [address] [facility] [address] [place] [address] Social History Tobacco Use Types [...] documented as of this encounter Functional Status documented as of this encounter Plan of Treatment Upcoming Encounters Date Type Department Care Team (Late st Contact Info) Description 10/18/2025 4:00 PM EST Office Visit [facility] [address] [place] [place] [address] Luis Quintanilla DO [address] [facility] [address] [place] [address] 11/20/2025 2:00 PM EST Clinical Support [facility] [address] [place] [address] documented as of this encounter Visit Diagnoses Not on filedocumented in this encounter Care Teams Professional Programmer Analyst Relationship Specialty Start Date End Date Wolfgang Alcala MD [address] [place], [place] PCP - General Internal Medicine 09/08/21 documented as of this encounter
--- OUTSIDE RECORDS SUMMARY | 2025-10-17 20:57 | XMS_ITS | Encounter Summary ---
Author Organization [facility] Address [address] [place] [address] Phone Care Team Providers Care Press Box Custodian Name Role Phone Wolfgang Alcala MD Primary Care Provider [phone] Encounter Details Date Type Department Care Team (Late Contact Info) Description 06/08/2025 Documentation Only [facility] [address] [place] [address] Radha Ramos [place] [address] [place] [phone] Social History Tobacco Use Types Packs/Day Years [...] Visit [facility] [address] [place] [address] Luis Quintanilla DO [address] [place] [address] 11/20/2025 2:00 PM EST Clinical Support [facility] Of [place] [facility] [address] [place] [address] documented as of this encounter Visit Diagnoses Not on filedocumented in this encounter Care Teams Press Box Custodian Relationship Specialty Start Date End Date Wolfgang Alcala MD [address] [place], [place] PCP - General Internal Medicine 09/08/21 documented as of this encounter
--- OUTSIDE RECORDS SUMMARY | 2025-10-17 20:57 | XMS_ITS | Encounter Summary ---
Author Organization [facility] Address [address] [place] [address] Phone Care Team Providers Care Exhibition Organiser Name Role Phone Wolfgang Alcala MD Primary Care Provider [phone] Encounter Details Date Type Department Care Team (Late Contact Info) Description 04/27/2025 Documentation Only [facility] [address] [place] [address] Frieda Rodriguez [address] [place] [phone] Social History Tobacco Use Types Packs/Day Years [...] Visit [facility] [address] [place] [address] Luis Quintanilla DO [address] [facility] [place] [address] 11/20/2025 2:00 PM EST Clinical Support [facility] [place] [facility] [address] [place] [address] documented as of this encounter Visit Diagnoses Not on filedocumented in this encounter Care Teams Exhibition Organiser Relationship Specialty Start Date End Date Wolfgang Alcala MD [address] [place] PCP - General Internal Medicine 09/08/21 documented as of this encounter
--- OUTSIDE RECORDS SUMMARY | 2025-10-17 20:57 | XMS_ITS | Encounter Summary ---
Author Organization [facility] Address [address] [place] [address] Phone Care Team Providers Care Coal Trammer Name Role Phone Wolfgang Alcala MD Primary Care Provider [phone] Encounter Details Date Type Department Care Team (Late Contact Info) Description 04/13/2025 Documentation Only [facility] [address] [place] [address] Radha Ramos [place] [address] [place] [phone] Social History Tobacco Use Types Packs/Day Years [...] Visit [facility] [address] [place] [address] Luis Quintanilla DO [address] [place] [address] 11/20/2025 2:00 PM EST Clinical Support [facility] [place] [facility] [address] [place] [address] documented as of this encounter Visit Diagnoses Not on filedocumented in this encounter Care Teams Coal Trammer Relationship Specialty Start Date End Date Wolfgang Alcala MD [address] [place], [place] PCP - General Internal Medicine 09/08/21 documented as of this encounter
--- OUTSIDE RECORDS SUMMARY | 2025-10-17 20:57 | XMS_ITS | Clinical Summary ---
Author Organization [facility], Address [address] [place] [address] [place] [address] Phone Care Team Providers Care Jig Boring Machine Set Up Operator Name Role Phone Wolfgang Alcala MD Primary Care Provider [phone] Allergies No known active allergies Medications albuterol HFA (ProAir HFA) 108 (90 Base) MCG/ACT inhaler 2 puffs 2 (two) times a day Active apixaban (ELIQUIS) 2.5 MG tablet Take 2.5 mg by mouth in the morning and 2.5 mg in the evening. Active atorvastatin (LIPITOR) 40 MG tablet Take 1 tablet by mouth 1 (one) time each day 8 Active tamsulosin (FLOMAX) 0.4 MG 24 hr capsule 2 Active traMADol (ULTRAM) 50 MG tablet Take 1 tablet by mouth 2 (two) times a day Active zolpidem (AMBIEN) 5 MG tablet Take 5 mg by mouth at night if needed for sleep Active Dapagliflozin Propanediol 5 MG tabletIndication s:Chronic kidney disease, stage 4 (severe) (HCC),Chronic systolic heart failure (HCC) Take 5 mg by mouth 1 (one) time each day in the morning 90 tablet 3 5 02/01/20 26 Active torsemide (DEMADEX) 20 MG tabletIndication s:Stage 5 chronic kidney disease (HCC),Cardiorena l syndrome,Chronic systolic heart failure (HCC) Take 4 tablets (80 mg total) by mouth 1 (one) time each day 360 tablet 3 5 08/31/20 26 Active metOLazone 5 MG tabletIndication s:Stage 5 chronic kidney disease (HCC),Cardiorena l syndrome,Chronic systolic heart failure (HCC) Take 1 tablet (5 mg total) by mouth every Wednesday and 24 tablet 5 12/19/19 26 Active predniSONE (DELTASONE) 20 MG tabletIndication s:Stage 5 chronic kidney disease (HCC),Cardiorena l syndrome,Chronic systolic heart failure (HCC) Take 1 tablet (20 mg total) by mouth 1 (one) time each day for 4 days 4 tablet 5 09/24/20 25 Active Problems Problem Noted Date Diagnosed Date Stage 5 chronic kidney disease 02/21/2025 Cardiorenal syndrome 04/03/2022 Acute nontraumatic kidney injury 11/11/2021 Biventricular congestive heart failure Chronic systolic heart failure 11/11/2021 Essential hypertension 11/11/2021 Hyperlipidemia 11/11/2021 Hypertensive heart AND renal disease 11/11/2021 Iron deficiency anemia 11/11/2021 Encounter for issue of repeat prescription 08/06 Resolved Problems Problem Noted Date Diagnosed Date Resolved Date Chronic kidney disease, stage 4 (severe) 04/03/2022 08/31/2025 Chronic kidney disease stage 3 11/11/2021 04/03/2022 Prostatitis 11/11/2021 06/29/2023 Encounters Date Type Department Care Team Description 10/16/2025 Telephone [facility] [address] [place] [address] Radha Ramos MA 10/08/2025 Telephone [facility] [address] [place] [address] Radha Ramos MA 10/05/2025 Orders Only [facility] [address] [place] [address] Frieda Rodriguez Stage 5 chronic kidney disease (HCC) (Primary Dx); Other acute kidney failure (HCC); Biventricular congestive heart failure (HCC); Chronic systolic heart failure (HCC); Encounter for issue of repeat prescription; Essential hypertension; Other hyperlipidemia; Hypertensive heart AND renal disease; Iron deficiency anemia, not otherwise specified; Cardiorenal syndrome 10/05/2025 Documentation Only [facility] [place] [address] [place] [address] MichaelFrieda valenzuela 10/05/2025 Orders Only [facility] [place] [address] [place] [address] MichaelCristhian valenzuelaica Other iron deficiency anemia (Primary Dx); Anemia in chronic kidney disease 09/20/2025 1:30 PM EST Office Visit [facility] [place] [address] [place] [address] Luis Quintanilla DO Stage 5 chronic kidney disease (HCC) (Primary Dx); Cardiorenal syndrome; Chronic systolic heart failure (HCC) 09/20/2025 Orders Only [facility] [address] [place] [address] MichaelCristhian valenzuelaica Other iron deficiency anemia (Primary Dx); Anemia in chronic kidney disease; Stage 5 chronic kidney disease (HCC) 09/04/2025 Documentation Only [facility] [place] [address] [place] [address] MichaelFrieda valenzuela 09/04/2025 Orders Only [facility] [address] [place] [address] Frieda Rodriguez Other iron deficiency anemia (Primary Dx); Anemia in chronic kidney disease; Stage 5 chronic kidney disease (HCC) 09/03/2025 Telephone [facility] [address] [place] [address] Trice Wan 08/31/2025 2:00 PM EDT Office Visit [facility] [place] [address] [place] [address] Luis Quintanilla DO Stage 5 chronic kidney disease (HCC) (Primary Dx); Cardiorenal syndrome; Chronic systolic heart failure (HCC) 08/31/2025 1:45 PM EDT Clinical Support [facility] [address] [place] [address] Trice Wan Vaccination against hepatitis B [Z23] (Primary Dx); Chronic kidney disease, Stage IV (severe) (HCC) [N18.4] 08/16/2025 Telephone [facility] [address] [place] [address] Trice Wan 08/11/2025 Orders Only [facility] [address] [place] [address] Trice Wan Chronic kidney disease, stage 4 (severe) (HCC); Iron deficiency anemia, not otherwise specified 08/08/2025 Orders Only [facility] [address] [place] [address] Trice Wan Elbow joint swelling <Unspecified side> (Primary Dx); Swelling of ankle joint <Unspecified side> 08/08/2025 Telephone [facility] [place] [address] [place] [address] Trice Wan 08/02/2025 Orders Only [facility] [address] [place] [address] Frieda Rodriguez Chronic kidney disease, stage 4 (severe) (HCC) (Primary Dx); Iron deficiency anemia, not otherwise specified; Anemia in chronic kidney disease 07/24/2025 Documentation Only [facility] [address] [place] [address] Trice Wan 07/24/2025 Orders Only [facility] [address] [place] [address] Trice Wan Chronic kidney disease, stage 4 (severe) (HCC) (Primary Dx); Iron deficiency anemia, not otherwise specified from Last 3 Months Immunizations Immunization Administration Dates Next Due Hepatitis B 08/31/2025,06/21/2025,05/23/2025 06/20/2025 Influenza, Unspecified 08/30/2019,08/30/2019,10/2015 Pfizer SARS-COV-2 02/19/2021,01/28/2021 Pneumococcal Conjugate 13-Valent 08/30/2019 Pneumococcal Polysaccharide 08/09/2020 Social History Tobacco Use Types Packs/Day Years Used Date Smoking Tobacco: Former Smokeless Tobacco: Never Alcohol Use Standard Drinks/Week Comments Yes 0 (1 standard drink = 0.6 oz pur e alcohol) Sex and Gender Information Value Date Recorded Sex Assigned at Not on file Legal Sex Male 4:31 PM EST Gender Identity Not on file Sexual Orientation Not on file Last Filed Vital Signs Vital Sign Reading Time Taken Comments Blood Pressure 108/70 09/20/2025 2:07 PM EST Pulse 68 09/20/2025 2:07 PM EST Temperature - - Respiratory Rate - - Oxygen Saturation - - Inhaled Oxygen Concentration - - Weight 80.7 kg (178 lb) 09/20/2025 2:07 PM EST Height 180.3 cm (5' 11 ) 03/21/2025 2:42 PM EDT Body Mass Index 24.83 03/21/2025 2:42 PM EDT Plan of Treatment Upcoming Encounters Date Type Department Care Team (Late st Contact Info) Description 10/18/2025 4:00 PM EST Office Visit [facility] [address] [place] [address] Luis Quintanilla DO [address] [facility] [place] [phone] 11/20/2025 2:00 PM EST Clinical Support [facility] [address] [place] [address] Health Maintenance Due Date Last Done Comments Influenza Vaccine (#1) 2025 9, 08/30/2019, 09/12/2015 Pneumococcal Vaccine: 50+ Years Completed 08/09/2020, 08/30/2019 Pneumococcal Vaccine: Peds (0 to 5 Years) and At-Risk Patients (6 to 49 Years) Discontinued 08/09/2020, 08/30/2019 Hepatitis B Vaccine Aged Out 08/31/2025, 06/21/2025, 05/23/2025 No longer eligible based on patient's age to complete this topic Procedures Procedure Name Priority Date/Time Associated Diagnosis Comments RENAL FUNCTION PANEL Routine 08/31/2025 8:55 AM EDT Stage 5 chronic kidney disease (HCC) Cardiorenal syndrome Chronic systolic heart failure (HCC) CBC AND DIFFERENTIAL Routine 08/31/2025 8:55 AM EDT Chronic kidney disease, stage 4 (severe) (HCC) Iron deficiency anemia, not otherwise specified IRON PANEL (FE, TIBC, TSAT) Routine 08/31/2025 8:55 AM EDT Chronic kidney disease, stage 4 (severe) (HCC) Iron deficiency anemia, not otherwise specified FERRITIN Routine 08/31/2025 8:55 AM EDT Chronic kidney disease, stage 4 (severe) (HCC) Iron deficiency anemia, not otherwise specified from Last 3 Months Results * (ABNORMAL) Iron Panel (Fe, TIBC, TSAT) (08/31/2025 8:55 AM EDT) TIBC 245(L) 250 - 450 ug/dL [facility] UIBC 220 111 - 343 ug/dL [facility] Iron 25(L) 38 - 169 ug/dL [facility] Iron Saturation (TSat) 10(L) 15 - 55 % [facility] Blood Venous blood / Unknown 08/31/2025 8:55 AM EDT 08/31/2025 Comment:Blood, Venou us Luis Quintanilla DO LAB BLOOD ORDERABLES Final Resu lt [facility] [address] [facility] [address] * (ABNORMAL) CBC and Differential (08/31/2025 8:55 AM EDT) WBC 4.3 3.4 - 10.8 x10E3/uL [facility] RBC 4.65 4.14 - 5.80 x10E6/uL [facility] Hemoglobin 11.3(L) 13.0 - 17.7 g/dL [facility] Hematocrit 37.7 37.5 - 51.0 % [facility] MCV 81 79 - 97 fL [facility] MCH 24.3(L) 26.6 - 33.0 pg [facility] MCHC 30.0(L) 31.5 - 35.7 g/dL [facility] RDW 18.6(H) 11.6 - 15.4 % [facility] Platelets 210 150 - 450 x10E3/uL [facility] Neutrophils Relative 60 Not Estab. % [facility] Lymphocytes Relative 18 Not Estab. % [facility] Monocytes 10 Not Estab. % [facility] Eosinophils Relative 11 Not Estab. % [facility] Basophils Relative 1 Not Estab. % [facility] Neutrophils Absolute 2.6 1.4 - 7.0 x10E3/uL [facility] Lymphocytes Absolute 0.8 0.7 - 3.1 x10E3/uL [facility] Monocytes Absolute 0.4 0.1 - 0.9 x10E3/uL [facility] Eosinophils Absolute 0.5(H) 0.0 - 0.4 x10E3/uL [facility] Basophils Absolute 0.1 0.0 - 0.2 x10E3/uL [facility] Immature Granulocytes 0 Not Estab. % [facility] Immature Grans (Absolute) 0.0 0.0 - 0.1 x10E3/uL [facility] Blood Venous blood / Unknown 08/31/2025 8:55 AM EDT 08/31/2025 Comment:Blood, Venou Luis Quintanilla LAB BLOOD ORDERABLES Final Resu lt [facility] [address] [place] [address] * Ferritin (08/31/2025 8:55 AM EDT) Ferritin 140 30 - 400 ng/mL [facility] Blood Venous blood / Unknown 08/31/2025 8:55 AM EDT 08/31/2025 Comment:Blood, Venou Luis Staplesry LAB BLOOD ORDERABLES Final Resu lt Performing Organization Address City/[facility]/ZIP Co de Phone Number [facility] [address] [place] [address] * (ABNORMAL) Renal Function Panel (08/31/2025 8:55 AM EDT) Glucose 123(H) 70 - 99 mg/dL [facility] BUN 41(H) 8 - 27 mg/dL [facility] Creatinine 3.31(H) 0.76 - 1.27 mg/dL [facility] eGFR CKD-EPI CR 2020 18(L) >59 mL/min/1.7 3 [facility] BUN/Creatinine Ratio 12 10 - 24 [facility] Sodium 145(H) 134 - 144 mmol/L [facility] Potassium 4.1 3.5 - 5.2 mmol/L [facility] Chloride 104 96 - 106 mmol/L [facility] Bicarbonate (CO2) 26 20 - 29 mmol/L [facility] Calcium 9.0 8.6 - 10.2 mg/dL [facility] Albumin 3.9 3.7 - 4.7 g/dL [facility] Phosphorus 3.3 2.8 - 4.1 mg/dL [facility] Blood Venous blood / Unknown 08/31/2025 8:55 AM EDT 08/31/2025 Comment:Blood, Venou us Luis Quintanilla DO LAB BLOOD ORDERABLES Final Resu lt [facility] [address] [place] [address] from Last 3 Months Insurance Medicare [facility] Medicare Care Teams Jig Boring Machine Set Up Operator Relationship Specialty Start Date End Date Wolfgang Alcala MD [address] [place], [place] PCP - General Internal Medicine 09/08/21
--- OUTSIDE RECORDS SUMMARY | 2025-10-17 20:57 | XMS_ITS | Encounter Summary ---
Author Organization [facility], Address [address] [place] [address] Phone Care Team Providers Care Policy Manager Name Role Phone Wolfgang Alcala MD Primary Care Provider [phone] Encounter Details Date Type Department Care Team (Late st Contact Info) Description 09/27/2024 Documentation Only [facility], [address] [place] [address] Luis Quintanilla DO [address] [place] [phone] Social History Tobacco Use Types Packs/Day Years [...] Office Visit [facility] [address] [place] [address] Luis Quintanilla DO [address] [place] [address] 11/20/2025 2:00 PM EST Clinical Support [facility] [address] [place] [address] documented as of this encounter Visit Diagnoses Not on filedocumented in this encounter Care Teams Policy Manager Relationship Specialty Start Date End Date Wolfgang Alcala MD [address] [place], [place] PCP - General Internal Medicine 09/08/21 documented as of this encounter
--- OUTSIDE RECORDS SUMMARY | 2025-10-17 20:57 | XMS_ITS | Encounter Summary ---
Author Organization [facility] Address [address] [place] [address] Phone Care Team Providers Care Cell Operator Name Role Phone Wolfgang Alcala MD Primary Care Provider [phone] Encounter Details Date Type Department Care Team (Late Contact Info) Description 09/02/2023 Documentation Only [facility] [address] [place] [address] Luis Quintanilla DO [address] [facility] [place] [address] Social History Tobacco Use Types [...] Visit [facility] [address] [place] [address] Luis Quintanilla DO [address] [facility] [place] [address] 11/20/2025 2:00 PM EST Clinical Support [facility] [address] [place] [place] [address] documented as of this encounter Visit Diagnoses Not on filedocumented in this encounter Care Teams Cell Operator Relationship Specialty Start Date End Date Wolfgang Alcala MD [address] [place], [place] PCP - General Internal Medicine 09/08/21 documented as of this encounter
--- OUTSIDE RECORDS SUMMARY | 2025-10-17 20:57 | XMS_ITS | Encounter Summary ---
Author Organization [facility] Address [address] [place] [address] Phone Care Team Providers Care Food Demonstrator Name Role Phone Wolfgang Alcala MD Primary Care Provider [phone] Encounter Details Date Type Department Care Team (Late Contact Info) Description 06/08/2023 Documentation Only [facility] [address] [place] [address] Luis Quintanilla DO [address] [facility] [place] [address] Social History Tobacco Use Types [...] Visit [facility] [address] [place] [address] Luis Quintanilla DO [address] [facility] [place] [address] 11/20/2025 2:00 PM EST Clinical Support [facility] [address] [place] [place] [address] documented as of this encounter Visit Diagnoses Not on filedocumented in this encounter Care Teams Food Demonstrator Relationship Specialty Start Date End Date Wolfgang Alcala MD [address] [place], [place] PCP - General Internal Medicine 09/08/21 documented as of this encounter
== END 2025-10-17 17:39 | disposition home or self-care (01) ==
LOC: HO.HMCH 16:23
DX: I50.9 Heart failure, unspecified (principal); L97.911 Non-pressure chronic ulcer of unspecified part of right lower leg limited to breakdown of skin; M25.571 Pain in right ankle and joints of right foot; M25.572 Pain in left ankle and joints of left foot; R19.5 Other fecal abnormalities; I10 Essential (primary) hypertension; Z74.09 Other reduced mobility; Z78.9 Other specified health status

== ENCOUNTER → 2025-10-17 16:22 | Outpatient (BNVA) | payer MEDICARE, SELFPAY | DX: M25.571 Pain in right ankle and joints of right foot (principal); M25.572 Pain in left ankle and joints of left foot; R19.5 Other fecal abnormalities; I50.9 Heart failure, unspecified; I10 Essential (primary) hypertension; Z74.09 Other reduced mobility; L97.911 Non-pressure chronic ulcer of unspecified part of right lower leg limited to breakdown of skin; Z79.899 Other long term (current) drug therapy | CPT/HCPCS: 99212 ==